=== PATIENT | female | born 1990 | race Caucasian/White ===

== ENCOUNTER 2019-06-17 22:16 | Observation (INO) | payer BC, SELFPAY ==
[2019-06-18 00:19] VITALS: BMI 31.1
--- NOTE | 2019-06-18 00:19 | OBADM ---
This patient, Christine Keller, admitted to the OB room Labor/Delivery/Recovery 107 for observation. Patient/family oriented to hospital policies and general routines including ID bracelet, bed and alarms, visiting hours, pain management, procedures, bathroom and other care routines, personal items, smoking policy, room service/diet, and visiting hours. Patient/Family are encouraged to report perceived risks to care and to ask questions if they do not understand what they are told or what they should do.
--- NOTE | 2019-07-24 07:18 | PM.OBDSVD ---
OB - DS: Summary OB Procedures : None OB Procedures Intrapartum: Spontaneous Vag Delivery OB Procedures: : Other (laceration repair in OR) Time Spent with Patient Time attestation: Total time spent providing and/or coordinating discharge services: Discharge Plan Discharge Attending physician on discharge: Lev Perdomo Discharging Clinician: Lev Perdomo Anticipated Discharge Date/Time: 06/18/19 00:27 Patient Disposition: Home, Self-Care Activity: as tolerated Diet: as tolerated Discharge Instructions: OB ANTEPARTUM DISCHARGE INSTRUCTIONS This information is given to help you properly care for yourself at home after your discharge from the hospital. Follow these instructions until your doctor tells you otherwise. DIET: Eat Three Well Balanced Meals per Day Drink at Least Eight 8-Ounce Glasses of Caffeine-Free Beverages Daily Additional Diet Instructions: ACTIVITY: As Tolerated Increase Periods of Rest Additional Activity Instructions: RETURN TO LABOR AND DELIVERY IF YOU HAVE: Any Change In Baby's Normal Movement Pattern Any Leakage of Fluid Contractions 3-5 Minutes Apart with Increasing Intensity Vaginal Bleeding Additional Reasons to Return to Labor and Delivery: Contractions may feel like abdominal pain, tightening, cramping, pressure, back ache, or thigh ache FOLLOW-UP CARE: Keep Next Scheduled Appointment To see in/on Valuables released to patient or family? N/A Medications from home returned to patient? N/A I Acknowledge Receipt of and Understand the Above Instructions IF YOU HAVE ANY QUESTIONS REGARDING THESE INSTRUCTIONS, PLEASE CALL [phone]. IF PROBLEMS ARISE, CALL YOUR PROVIDER. IF EMERGENCY CARE IS NEEDED, [facility] IS AVAILABLE 24 HOURS A DAY. Stand Alone Forms: General Discharge Information, Work/School Release IP Follow-up/Referrals: Lev Perdomo MD [Physician] - Discharge Medications: Continued PNV cmb#95-ferrous fumarate-FA [] 28 mg iron- 800 mcg Tablet 1 tablet PO DAILY RF: 0 sertraline 25 mg Tablet 25 mg PO DAILY RF: 0 No Action amoxicillin-pot clavulanate [Augmentin] 875-125 mg Tablet 1 tablet PO Q12H RF: 0 hydrocodone-acetaminophen 5-325 mg tablet 1 tablet PO Q8H PRN (Reason: pain) Qty: 10 RF: 0 hydrocodone-acetaminophen 5-325 mg Tablet 1 tab PO Q3H PRN (Reason: Moderate Pain (4-6)) Qty: 30 RF: 0 ibuprofen 600 mg Tablet 600 mg PO Q6H PRN (Reason: Cramping) Qty: 30 RF: 0 Date of admission: 06/17/19 22:16 Primary Care Provider: Jassi Fong Admitting Provider: Lev Perdomo Discharge Date/Time: 06/18/19 00:35 Attending physician on admission: Lev Perdomo
--- NOTE | 2019-07-26 09:11 | PM.OBDSVD ---
OB - DS: Summary OB Procedures : None OB Procedures Intrapartum: Spontaneous Vag Delivery and Episiotomy OB Procedures: : Other (PP episiotomy breakdown and repair) Time Spent with Patient Time attestation: Total time spent providing and/or coordinating discharge services: Discharge Plan Discharge Attending physician on discharge: Lev Perdomo Discharging Clinician: Lev Perdomo Anticipated Discharge Date/Time: 06/18/19 00:27 Patient Disposition: Home, Self-Care Activity: as tolerated Diet: as tolerated Discharge Instructions: OB ANTEPARTUM DISCHARGE INSTRUCTIONS This information is given to help you properly care for yourself at home after your discharge from the hospital. Follow these instructions until your doctor tells you otherwise. DIET: Eat Three Well Balanced Meals per Day Drink at Least Eight 8-Ounce Glasses of Caffeine-Free Beverages Daily Additional Diet Instructions: ACTIVITY: As Tolerated Increase Periods of Rest Additional Activity Instructions: RETURN TO LABOR AND DELIVERY IF YOU HAVE: Any Change In Baby's Normal Movement Pattern Any Leakage of Fluid Contractions 3-5 Minutes Apart with Increasing Intensity Vaginal Bleeding Additional Reasons to Return to Labor and Delivery: Contractions may feel like abdominal pain, tightening, cramping, pressure, back ache, or thigh ache FOLLOW-UP CARE: Keep Next Scheduled Appointment To see in/on Valuables released to patient or family? N/A Medications from home returned to patient? N/A I Acknowledge Receipt of and Understand the Above Instructions IF YOU HAVE ANY QUESTIONS REGARDING THESE INSTRUCTIONS, PLEASE CALL [phone]. IF PROBLEMS ARISE, CALL YOUR PROVIDER. IF EMERGENCY CARE IS NEEDED, [facility] EM[facility] ROOM IS AVAILABLE 24 HOURS A DAY. Stand Alone Forms: General Discharge Information, Work/School Release IP Follow-up/Referrals: Lev Perdomo MD [Physician] - Discharge Medications: Continued PNV cmb#95-ferrous fumarate-FA [] 28 mg iron- 800 mcg Tablet 1 tablet PO DAILY RF: 0 sertraline 25 mg Tablet 25 mg PO DAILY RF: 0 No Action amoxicillin-pot clavulanate [Augmentin] 875-125 mg Tablet 1 tablet PO Q12H RF: 0 hydrocodone-acetaminophen 5-325 mg tablet 1 tablet PO Q8H PRN (Reason: pain) Qty: 10 RF: 0 hydrocodone-acetaminophen 5-325 mg Tablet 1 tab PO Q3H PRN (Reason: Moderate Pain (4-6)) Qty: 30 RF: 0 ibuprofen 600 mg Tablet 600 mg PO Q6H PRN (Reason: Cramping) Qty: 30 RF: 0 Date of admission: 06/17/19 22:16 Primary Care Provider: Jassi Fong Admitting Provider: Lev Perdomo Discharge Date/Time: 06/18/19 00:35 Attending physician on admission: Lev Perdomo
--- NOTE | 2019-07-30 03:30 | P.DS_ITS ---
OB - DS: Summary OB Procedures : None OB Procedures Intrapartum: Spontaneous Vag Delivery OB Procedures: : Other (laceration breakdown/repair) Time Spent with Patient Time attestation: Total time spent providing and/or coordinating discharge services: Discharge Plan Discharge Attending physician on discharge: Lev Perdomo Discharging Clinician: Lev Perdomo Anticipated Discharge Date/Time: 06/18/19 00:27 Patient Disposition: Home, Self-Care Activity: as tolerated Diet: as tolerated Discharge Instructions: OB ANTEPARTUM DISCHARGE INSTRUCTIONS This information is given to help you properly care for yourself at home after your discharge from the hospital. Follow these instructions until your doctor tells you otherwise. DIET: Eat Three Well Balanced Meals per Day Drink at Least Eight 8-Ounce Glasses of Caffeine-Free Beverages Daily Additional Diet Instructions: ACTIVITY: As Tolerated Increase Periods of Rest Additional Activity Instructions: RETURN TO LABOR AND DELIVERY IF YOU HAVE: Any Change In Baby's Normal Movement Pattern Any Leakage of Fluid Contractions 3-5 Minutes Apart with Increasing Intensity Vaginal Bleeding Additional Reasons to Return to Labor and Delivery: Contractions may feel like abdominal pain, tightening, cramping, pressure, back ache, or thigh ache FOLLOW-UP CARE: Keep Next Scheduled Appointment To see in/on Valuables released to patient or family? N/A Medications from home returned to patient? N/A I Acknowledge Receipt of and Understand the Above Instructions IF YOU HAVE ANY QUESTIONS REGARDING THESE INSTRUCTIONS, PLEASE CALL [phone]. IF PROBLEMS ARISE, CALL YOUR PROVIDER. IF EMERGENCY CARE IS NEEDED, [facility] EM[facility] RO[facility] IS AVAILABLE 24 HOURS A DAY. Stand Alone Forms: General Discharge Information, Work/School Release IP Follow-up/Referrals: Lev Perdomo MD [Physician] - Discharge Medications: Continued PNV cmb#95-ferrous fumarate-FA [] 28 mg iron- 800 mcg Tablet 1 tablet PO DAILY RF: 0 sertraline 25 mg Tablet 25 mg PO DAILY RF: 0 No Action amoxicillin-pot clavulanate [Augmentin] 875-125 mg Tablet 1 tablet PO Q12H RF: 0 hydrocodone-acetaminophen 5-325 mg tablet 1 tablet PO Q8H PRN (Reason: pain) Qty: 10 RF: 0 hydrocodone-acetaminophen 5-325 mg Tablet 1 tab PO Q3H PRN (Reason: Moderate Pain (4-6)) Qty: 30 RF: 0 ibuprofen 600 mg Tablet 600 mg PO Q6H PRN (Reason: Cramping) Qty: 30 RF: 0 Date of admission: 06/17/19 22:16 Primary Care Provider: Jassi Fong Admitting Provider: Lev Perdomo Discharge Date/Time: 06/18/19 00:35 Attending physician on admission: Lev Perdomo
--- NOTE | 2019-07-31 07:48 | PM.OBDSVD ---
DS: Diagnosis Admitting Diagnosis Admitting Diagnosis: labor without delivery, unspecified trimester OB - DS: Summary OB Procedures : None OB Procedures Intrapartum: Spontaneous Vag Delivery OB Procedures: : Other (episiotomy repair) Time Spent with Patient Time attestation: Total time spent providing and/or coordinating discharge services: Discharge Plan Discharge Attending physician on discharge: Lve Perdomo Discharging Clinician: Lev Perdomo Anticipated Discharge Date/Time: 06/18/19 00:27 Patient Disposition: Home, Self-Care Activity: as tolerated Diet: as tolerated Discharge Instructions: OB ANTEPARTUM DISCHARGE INSTRUCTIONS This information is given to help you properly care for yourself at home after your discharge from the hospital. Follow these instructions until your doctor tells you otherwise. DIET: Eat Three Well Balanced Meals per Day Drink at Least Eight 8-Ounce Glasses of Caffeine-Free Beverages Daily Additional Diet Instructions: ACTIVITY: As Tolerated Increase Periods of Rest Additional Activity Instructions: RETURN TO LABOR AND DELIVERY IF YOU HAVE: Any Change In Baby's Normal Movement Pattern Any Leakage of Fluid Contractions 3-5 Minutes Apart with Increasing Intensity Vaginal Bleeding Additional Reasons to Return to Labor and Delivery: Contractions may feel like abdominal pain, tightening, cramping, pressure, back ache, or thigh ache FOLLOW-UP CARE: Keep Next Scheduled Appointment To see in/on Valuables released to patient or family? N/A Medications from home returned to patient? N/A I Acknowledge Receipt of and Understand the Above Instructions IF YOU HAVE ANY QUESTIONS REGARDING THESE INSTRUCTIONS, PLEASE CALL [phone]. IF PROBLEMS ARISE, CALL YOUR PROVIDER. IF EMERGENCY CARE IS NEEDED, [facility] EMERGENCY ROOM IS AVAILABLE 24 HOURS A DAY. Stand Alone Forms: General Discharge Information, Work/School Release IP Follow-up/Referrals: Lev Perdomo MD [Physician] - Discharge Medications: Continued PNV cmb#95-ferrous fumarate-FA [] 28 mg iron- 800 mcg Tablet 1 tablet PO DAILY RF: 0 sertraline 25 mg Tablet 25 mg PO DAILY RF: 0 No Action amoxicillin-pot clavulanate [Augmentin] 875-125 mg Tablet 1 tablet PO Q12H RF: 0 hydrocodone-acetaminophen 5-325 mg tablet 1 tablet PO Q8H PRN (Reason: pain) Qty: 10 RF: 0 hydrocodone-acetaminophen 5-325 mg Tablet 1 tab PO Q3H PRN (Reason: Moderate Pain (4-6)) Qty: 30 RF: 0 ibuprofen 600 mg Tablet 600 mg PO Q6H PRN (Reason: Cramping) Qty: 30 RF: 0 Date of admission: 06/17/19 22:16 Primary Care Provider: Jassi Fong Admitting Provider: Lev Perdomo Discharge Date/Time: 06/18/19 00:35 Attending physician on admission: Lev Perdomo
--- NOTE | 2019-07-31 13:44 | PM.OBTRLD ---
OB - Triage/Final Diagnosis Visit Information Reason for evaluation: threatened labor
== END 2019-06-18 00:35 | disposition home or self-care (01) ==
PROVIDERS: Admitting Provider Obstetrics & Gynecology; PCP Internal Medicine; Visit Provider Obstetrics & Gynecology
DX: O47.1 False labor at or after 37 completed weeks of gestation (principal); Z3A.37 37 weeks gestation of pregnancy
CPT/HCPCS: G0378; G0379

== ENCOUNTER 2019-09-13 16:45 | Emergency (ER) | payer BC, SELFPAY ==
--- NOTE | ~2019-09-13 | CT_ITS ---
EXAMINATION: CT abdomen pelvis w con DATE: 09/13/2019 19:06 INDICATION: Left lower quadrant abdominal pain. Blood in stool. TECHNIQUE: Computed tomography (CT) of the abdomen and pelvis was performed with 100 mL Omnipaque 350 intravenous contrast. Automated exposure control and iterative reconstruction technique were employe d. The dose-length product was 531.13 mGy-cm. COMPARISON: CT abdomen and pelvis 07/11/2019 FINDINGS: The visualized portions of the lung bases are clear without pneumonia or pleural effusion. The heart size is normal. No pericardial effusion. The liver and spleen are normal. There are changes of recent cholecystectomy. There is a small volume of soft tissue in the gallbladder fossa, likely g ranulation tissue. The spleen, pancreas, adrenal glands, and kidneys are normal. There are no dilated loops of bowel. The appendix is normal. There are no pathologically enlarged lymph nodes. The bones are unremarkable. IMPRESSION: 1. Expected surgical changes of recent cholecystectomy. Reviewed, dictated and finalized at location A.
[2019-09-13 16:49] VITALS: BP 139/88; PULSE 123; RESP 18; TEMP 36.2; O2SAT 98
[2019-09-13 17:22] LABS: Basophils Percent Auto 0.2 % (0.2-1.2); Eosinophils Absolute Auto 0.1 K/mm3 (0-0.3); Eosinophils Percent Auto 0.7 % (0-4.4); Hematocrit 39.6 % (37.0-47.0); Hemoglobin 12.6 g/dL (12.0-15.0); Immature Granulocyte Absolute 0.03 K/mm3 (0.00-0.031); Immature Granulocyte Percent A 0.3 % (0-0.5); Lymphocytes Absolute Auto 2.14 K/mm3 (0.9-3.2); Lymphocytes Percent Auto 22.6 % (18.3-44.2); Mean Corpuscular HGB Conc 31.8 g/dl (32-36); Mean Corpuscular Hemoglobin 29.9 pg (26-34); Mean Corpuscular Volume 93.8 fl (80-100); Mean Platelet Volume 10.6 fl (7.4-10.4); Monocytes Absolute Auto 0.5 K/mm3 (0.1-0.6); Monocytes Percent Auto 5.4 % (2.6-8.5); Neutrophils Absolute Auto 6.7 K/mm3 (1.3-6.7); Neutrophils Percent Auto 70.8 % (45.5-73.1); Platelet Count Result 351 k/mm3 (150-375); Red Blood Count 4.22 M/mm3 (4.2-5.4); Red Cell Distribution Width 13.7 % (11.5-14.5); White Blood Count 9.5 K/mm3 (4.5-10.0)
[2019-09-13 17:32] LABS: Prothrombin Time 12.4 Seconds (11.1-14.7)
[2019-09-13 17:33] LABS: Partial Thromboplastin Time 25.1 SECONDS (22.3-36.8)
[2019-09-13 17:40] LABS: Alanine Aminotransferase 100 U/L (4-35); Albumin Level 4.7 g/dL (3.5-5.1); Alkaline Phosphatase 102 U/L (38-126); Aspartate Amino Transferase 67 U/L (14-36); Bilirubin,Total 0.4 mg/dL (0.2-1.3); Blood Urea Nitrogen 10 mg/dL (7-17); Calcium 9.2 mg/dL (8.4-10.2); Carbon Dioxide 26 mmol/L (22-30); Chloride 101 mmol/L (98-107); Estimated CRCL calculation 105 ml/min; Estimated Glomerular Filt Rate > 60; Glucose 120 mg/dL (65-105); Potassium 3.8 mmol/L (3.4-5.0); Sodium 138 mmol/L (137-145)
[2019-09-13 17:53] VITALS: BP 129/89; PULSE 112; RESP 17; O2SAT 100
--- NOTE | 2019-09-13 17:58 | ED.GIBLEED ---
HPI - GI Bleed General Chief complaint: GI Bleed Stated complaint: R/O bowel obstruction Time Seen by Provider: 09/13/19 17:49 Related Data Home Medications Medication Instructions Recorded Confirmed nortriptyline 50 mg capsule 150 mg PO DAILY cap 08/15/19 Allergies Allergy/AdvReac Type Severity Reaction Status Date / Time prochlorperazine AdvReac Other Verified 07/11/19 23:06 [From Compazine] [facility] Past Medical History Medical History (Updated 08/15/19 @ 07:37 by Cat Nettles CMA) ADH disorder ADHD Brain tumor Depression Generalized anxiety disorder Generalized hyperhidrosis Glioma tectorial gliomahe Headache, migraine Hyperthyroidism Obesity (BMI 30-39.9) PIH ( induced hypertension) Surgical History Surgical History (Updated 08/15/19 @ 14:27 by Cat Nettles CMA) History of brain surgery 2011 History of vaginal surgery complete vaginal reconstruction after vaginal Social History Social History (Updated 08/15/19 @ 14:28 by Cat Nettles CMA) Smoking packs per day: 0.75 Smoking cigarettes per day: 15.0 Years smoked: 10 Smoking pack-years: 7.50 Smoking status: Former smoker Smoking end date: 06/19/09 Alcohol intake: never Substance use: never Gender identity (if verbalized by the patient): Female Spiritual care concerns: No Course Vital Signs Vital signs: Vital Signs Temperature 36.2 C L 09/13/19 16:49 Pulse Rate 123 H 09/13/19 16:49 Respiratory Rate 18 09/13/19 16:49 Blood Pressure 139/88 09/13/19 16:49 Pulse Oximetry 98 09/13/19 16:49 Temperature 36.2 C L 09/13/19 16:49 Pulse Rate 112 H 09/13/19 17:53 Respiratory Rate 17 09/13/19 17:53 Blood Pressure 129/89 09/13/19 17:53 Pulse Oximetry 100 09/13/19 17:53 MDM - GI Bleed Lab Data Result diagrams: 09/13/19 17:00 09/13/19 17:00 Labs: Lab Results 09/13/19 09/13/19 09/13/19 Range/Units 17:00 17:00 17:00 WBC 9.5 (4.5-10.0) K/mm3 RBC 4.22 (4.2-5.4) M/mm3 Hgb 12.6 (12.0-15.0) g/dL Hct 39.6 (37.0-47.0) % MCV 93.8 (80-100) fl MCH 29.9 (26-34) pg MCHC 31.8 L (32-36) g/dl RDW 13.7 (11.5-14.5) % Plt Count 351 (150-375) k/mm3 MPV 10.6 H (7.4-10.4) fl Immature Gran % (Auto) 0.3 (0-0.5) % Neut % (Auto) 70.8 (45.5-73.1) % Lymph % (Auto) 22.6 (18.3-44.2) % Duval % (Auto) 5.4 (2.6-8.5) % Eos % (Auto) 0.7 (0-4.4) % Baso % (Auto) 0.2 (0.2-1.2) % Lymph # (Auto) 2.14 (0.9-3.2) K/mm3 Duval # (Auto) 0.5 (0.1-0.6) K/mm3 Eos # (Auto) 0.1 (0-0.3) K/mm3 Baso # (Auto) 0.0 (0.0-0.1) K/mm3 Abs Immat Gran (auto) 0.03 (0.00-0.031) K/mm3 Absolute Neuts (auto) 6.7 (1.3-6.7) K/mm3 Absolute Nucleated RBC 0.0 (0.0-0.012) K/mm3 Nucleated RBC % 0.0 (0.0-0.2) % PT 12.4 (11.1-14.7) Seconds INR 1.0 APTT 25.1 (22.3-36.8) SECONDS Sodium 138 (137-145) mmol/L Potassium 3.8 (3.4-5.0) mmol/L Chloride 101 (98-107) mmol/L Carbon Dioxide 26 (22-30) mmol/L BUN 10 (7-17) mg/dL Creatinine 0.70 (0.7-1.0) mg/dL Estim Creat Clear Calc 105 ml/min Estimated GFR > 60 (59 - ) Glucose 120 H (65-105) mg/dL Calcium 9.2 (8.4-10.2) mg/dL Total Bilirubin 0.4 (0.2-1.3) mg/dL AST 67 H (14-36) U/L ALT 100 H (4-35) U/L Alkaline Phosphatase 102 (38-126) U/L Total Protein 9.0 H (6.3-8.2) g/dL Albumin 4.7 (3.5-5.1) g/dL Blood Type Antibody Screen 09/13/19 Range/Units 17:00 WBC (4.5-10.0) K/mm3 RBC (4.2-5.4) M/mm3 Hgb (12.0-15.0) g/dL Hct (37.0-47.0) % MCV (80-100) fl MCH (26-34) pg MCHC (32-36) g/dl RDW (11.5-14.5) % Plt Count (150-375) k/mm3 MPV (7.4-10.4) fl Immature Gran % (Auto) (0-0.5) % Neut % (Auto) (45.5-73.1) % Lymph % (Auto) (18.3-44.2) % Duval % (Auto) (2.6-8.5) % Eos % (Auto) (0-4.
--- NOTE | 2019-09-13 18:03 | ED.ABDPAIN ---
HPI - Abdominal Pain General Chief Complaint: GI Bleed Stated Complaint: R/O bowel obstruction Time Seen by Provider: 09/13/19 17:49 Source: patient Mode of arrival: ambulatory Limitations: no limitations History of Present Illness HPI narrative: The pt is a 28 y/o female who presents to the ED c/o lower ABD pain onset one week ago. Pt states that she had laparoscopic cholecystectomy performed by Dr. Mcadams at [facility] one week ago. She states that the pain has not gone away with Tylenol and Ibuprofen. She states that she had a follow-up two days ago. She states that one day ago, she began to notice bright red blood with her bowel movements. Pt has had 3 movements in total. She states that she called her surgeon's office, who were first concerned about obstruction. She states that today, the nurse from the surgeon's office called back and told her it could be a hemorrhoid or constipation. The pt states that she was still concerned, so she came in. Pt reports nausea and diaphoresis, but denies diarrhea, constipation, fever, chills, cough, sore throat, vomiting, dysuria, hematuria, and frequency. MD elicited complaint: abdominal pain Onset (ago): week(s) (1) Location: other (Lower) Relieving factors: nothing Context: confirms recent surgery/procedure (Laparoscopic cholecystectomy) Associated symptoms: nausea, hematochezia and other (Diaphoresis) Treatments prior to arrival: NSAIDs (Ibuprofen) and other (Tylenol) Related Data Home Medications Medication Instructions Recorded Confirmed nortriptyline 50 mg capsule 150 mg PO DAILY cap 08/15/19 Allergies Allergy/AdvReac Type Severity Reaction Status Date / Time prochlorperazine AdvReac Other Verified 07/11/19 23:06 [From Compazine] Review of Systems Review of Systems: All systems reviewed & are unremarkable except as noted in HPI and below Constitutional: Constitutional: Denies chills, Reports excessive sweating and Denies fever(s) ENT: Denies sore throat Respiratory: Respiratory: Denies cough Gastrointestinal: Gastrointestinal: Reports abdominal pain (Lower), Reports hematochezia, Denies constipation, Denies diarrhea, Reports nausea and Denies vomiting Genitourinary: Genitourinary: Denies hematuria, Denies nocturia and Denies dysuria [facility] Past Medical History Medical History (Updated 09/13/19 @ 19:25 by Genevieve Cowart MD) ADH disorder ADHD Brain tumor Depression Generalized anxiety disorder Generalized hyperhidrosis Glioma tectorial gliomahe Headache, migraine Hydrocephalus Hyperthyroidism Obesity (BMI 30-39.9) PIH ( induced hypertension) Surgical History Surgical History (Updated 09/13/19 @ 18:05 by Benji Payne) History of brain surgery 2011 History of cholecystectomy History of vaginal surgery complete vaginal reconstruction after vaginal Social History Social History (Updated 08/15/19 @ 14:28 by Cat Nettles [facility]) Smoking packs per day: 0.75 Smoking cigarettes per day: 15.0 Years smoked: 10 Smoking pack-years: 7.50 Smoking status: Former smoker Smoking end date: 06/19/09 Alcohol intake: never Substance use: never Gender identity (if verbalized by the patient): Female Spiritual care concerns: No Comments PCP: Dr. Fong Surgeon: Dr. Mcadams Exam Const: General: cooperative, no acute distress and alert Nutritional Appearance: well nourished Orientation/consciousness: patient oriented x3 Limitations: no limitations HENMT: Mouth: Yes lip normal and Yes moist mucous membranes Resp: Effort & Inspection: normal respiratory effort Auscultation: clear to auscultation bilaterally Cardio: Rate: regular rate Rhythm: regular rhythm GI: GI Palp: Yes Soft to palpation and Yes Tenderness to palpation present (GI) (LLQ) Auscultation: normal bowel sounds Skin: General skin exam: normal color and other (Well-healing surgical scars on her ABD from laparoscopic cholecystectomy) Neur
[2019-09-13 19:39] VITALS: BP 125/88; PULSE 100; RESP 18; O2SAT 99
== END 2019-09-13 19:41 | disposition home or self-care (01) ==
PROVIDERS: Emergency Medicine; Emergency Provider Emergency Medicine; PCP Internal Medicine
DX: K62.5 Hemorrhage of anus and rectum (principal); R10.30 Lower abdominal pain, unspecified; Z98.890 Other specified postprocedural states; F90.9 Attention-deficit hyperactivity disorder, unspecified type; F32.9 Major depressive disorder, single episode, unspecified; F41.1 Generalized anxiety disorder; G91.9 Hydrocephalus, unspecified; Z87.891 Personal history of nicotine dependence
CPT/HCPCS: 36415; 74177; 80053; 85025; 85610; 85730; 86850; 86870; 86880; 86900; 86901; 86902; 86971; 86978; 99284; Q9967

== ENCOUNTER 2020-07-29 16:30 | Emergency (ER) | payer SELFPAY ==
--- NOTE | ~2020-07-29 | CT_ITS ---
EXAMINATION: CT brain wo con INDICATION: Right-sided muscle spasms, history of brain tumor COMPARISON: 09/17/2017; MRI, 06/04/2014 TECHNIQUE: Standard unenhanced head CT. The dose-length product (DLP) was 605.33 mGy-cm. The mA was a djusted according to patient size. Iterative reconstruction technique was employed. FINDINGS: There is no intracranial hemorrhage or acute infarction. An approximately 1.5 x 1.1 cm mass of the tectum is not significantly changed. There is mild ventriculomegaly without significant boo e. Encephalomalacia is seen in the right frontal lobe along a prior ventriculostomy tract. There is n o abnormal mass effect or midline shift. The bose-white matter differentiation is normal. The basal c isterns are patent. The orbits are normal. The paranasal sinuses, mastoids and calvarium are normal. IMPRESSION: 1. No acute intracranial abnormality. 2. 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 Reviewed, dictated and finalized at location A. [employer]
[2020-07-29 16:43] VITALS: BP 121/85; PULSE 127; RESP 19; TEMP 36.6; O2SAT 100
--- NOTE | 2020-07-29 16:48 | ECG_ITS ---
Measurements Intervals [place] Rate: 121 P: 67 NV: 133 QRS: 73 QRSD: 86 T: 44 QT: 338 QTc: 480 Interpretive Statements SINUS TACHYCARDIA MINIMAL Q WAVES- ANTEROLAT/INF LEADS NONSPECIFIC T-WAVE ABNORMALITY- INFERIOR LEADS BASELINE ARTIFACT- I, III, AVR, AVL, AVF, V4-V6 ABNORMAL ECG Electronically Signed On 07-29-2020 19:40:29 [employer] by Oleksandr Ortiz D.O.
[2020-07-29] MEDS: SODIUM CHLORIDE 0.9% IV 1,000 ML 999 ML IV CONT (16:55)
[2020-07-29] MEDS: LORazepam INJ (*CRX) 2 MG/ML VIAL 0.5 MG IV PUSH (16:58)
[2020-07-29] MEDS: diphenhydrAMINE HCl INJ 50 MG/ML VIAL 25 MG IV PUSH (16:58)
[2020-07-29 17:05] LABS: Basophils Percent Auto 0.4 % (0.2-1.2); Eosinophils Absolute Auto 0.1 K/mm3 (0-0.3); Hematocrit 37.7 % (37.0-47.0); Hemoglobin 12.6 g/dL (12.0-15.0); Immature Granulocyte Absolute 0.03 K/mm3 (0.00-0.031); Immature Granulocyte Percent A 0.3 % (0-0.5); Lymphocytes Absolute Auto 1.99 K/mm3 (0.9-3.2); Lymphocytes Percent Auto 19.6 % (18.3-44.2); Mean Corpuscular HGB Conc 33.4 g/dl (32-36); Mean Corpuscular Hemoglobin 30.6 pg (26-34); Mean Corpuscular Volume 91.5 fl (80-100); Mean Platelet Volume 10.1 fl (7.4-10.4); Monocytes Absolute Auto 0.6 K/mm3 (0.1-0.6); Monocytes Percent Auto 5.4 % (2.6-8.5); Neutrophils Absolute Auto 7.4 K/mm3 (1.3-6.7); Neutrophils Percent Auto 73.3 % (45.5-73.1); Platelet Count Result 263 k/mm3 (150-375); Red Blood Count 4.12 M/mm3 (4.2-5.4); Red Cell Distribution Width 12.7 % (11.5-14.5); White Blood Count 10.1 K/mm3 (4.5-10.0)
[2020-07-29 17:22] LABS: Alanine Aminotransferase 35 U/L (4-35); Albumin Level 4.6 g/dL (3.5-5.1); Alkaline Phosphatase 63 U/L (38-126); Anion Gap 6 mmol/L (8-16); Aspartate Amino Transferase 33 U/L (14-36); Bilirubin,Total 0.4 mg/dL (0.2-1.3); Blood Urea Nitrogen 8 mg/dL (7-17); Calcium 9.2 mg/dL (8.4-10.2); Carbon Dioxide 28 mmol/L (22-30); Chloride 107 mmol/L (98-107); Estimated CRCL calculation 117 ml/min; Estimated Glomerular Filt Rate > 60; Glucose 112 mg/dL (65-105); Potassium 3.9 mmol/L (3.4-5.0); Sodium 141 mmol/L (137-145)
[2020-07-29 17:40] VITALS: BP 125/84; PULSE 94; RESP 18; O2SAT 100
--- NOTE | 2020-07-29 18:17 | ED.GENADULT ---
HPI - General Adult General Chief complaint: Anxiety Stated complaint: my body is tense and I'm leaning to the side Time Seen by Provider: 07/29/20 16:41 History of Present Illness HPI narrative: Patient a 29-year-old female who presents the emergency department with chief complaint of anxiety and her right side of her body tensing up. She reports that she has been more anxious since the of a friend who was 25 years old and states that she took some extra BuSpar that her doctor told her that she could take. The patient states she feels as though the right side of her body is tensed up and feels as though it is pulling to the right side. The patient reports that it is not improved by anything and that she feels very anxious. The patient denies suicidal or homicidal ideation Related Data Home Medications Medication Instructions Recorded Confirmed nortriptyline 50 mg capsule 150 mg PO DAILY cap 08/15/19 Allergies Allergy/AdvReac Type Severity Reaction Status Date / Time prochlorperazine AdvReac Other Verified 07/29/20 16:46 [From Compazine] Review of Systems Review of Systems: Narrative: A 10 system review of systems was completed on the patient and is negative except for what is stated in the HPI. Nursing and ancillary documentation was reviewed. [facility] Past Medical History Medical History ADH disorder ADHD Brain tumor Depression Generalized anxiety disorder Generalized hyperhidrosis Glioma tectorial gliomahe Headache, migraine Hydrocephalus Hyperthyroidism Obesity (BMI 30-39.9) PIH ( induced hypertension) Surgical History Surgical History History of brain surgery 2012 History of cholecystectomy History of vaginal surgery complete vaginal reconstruction after vaginal Family History Family History Father Family history of elevated blood lipids Diabetes mellitus Depression Mother Melanoma Social History Social History Smoking packs per day: 0.75 Smoking cigarettes per day: 15.0 Years smoked: 10 Smoking pack-years: 7.50 Smoking status: Former smoker Smoking end date: 06/19/09 Alcohol intake: never Substance use: never Gender identity (if verbalized by the patient): Female Spiritual care concerns: No Exam Narrative: Exam Narrative: GENERAL: Well-appearing, well-nourished, and in no acute distress. HEAD: Normocephalic, atraumatic. EYES: PERRLA and EOMI. ENT: Nares clear, no rhinorrhea or epistaxis. Mucous membranes moist. NECK: Supple. CHEST: Clear to auscultation. No respiratory distress. HEART: Regular rate and rhythm. No murmur heard. Normal peripheral pulses. ABDOMEN: Soft, nontender, nondistended, normal active bowel sounds. EXTREMITIES: Normal range of motion. No edema. SKIN: Warm, dry, no rash. NEURO: No focal deficits. Alert and oriented x3. PSYCH: Normal mood and affect. Course Course Emergency Course: Given the patient's prior history of brain tumor a CT scan was ordered to evaluate for any acute intercranial pathology. This shows unchanged from previous studies. Given the patient was anxious and also showing signs that she was spasming on the right side the patient was given a dose of Ativan and also given a dose of IV Benadryl in case this was a dystonic type reaction. The patient had complete resolution in her symptoms after receiving the Ativan and Benadryl. Vital Signs Vital signs: Vital Signs Temperature 36.6 C 07/29/20 16:43 Pulse Rate 127 H 07/29/20 16:43 Respiratory Rate 19 07/29/20 16:43 Blood Pressure 121/85 07/29/20 16:43 Pulse Oximetry 100 07/29/20 16:43 Temperature 36.6 C 07/29/20 16:43 Pulse Rate 94 07/29/20 17:40 Respiratory Rate 18
[2020-07-29 18:34] VITALS: BP 120/83; PULSE 88; RESP 18; O2SAT 100
== END 2020-07-29 18:35 | disposition home or self-care (01) ==
PROVIDERS: Emergency Provider Emergency Medicine; PCP Nurse Practitioner Family
DX: F41.9 Anxiety disorder, unspecified (principal); F90.9 Attention-deficit hyperactivity disorder, unspecified type; F32.9 Major depressive disorder, single episode, unspecified
CPT/HCPCS: 36415; 70450; 80053; 85025; 93005; 96361; 96374; 96375; 99284; J1200; J2060; J7030

== ENCOUNTER 2020-10-09 03:21 | Emergency (ER) | payer SELFPAY ==
[2020-10-09 03:24] VITALS: BP 121/79; PULSE 104; RESP 18; TEMP 36.3; O2SAT 100
[2020-10-09 03:36] VITALS: BP 107/71; PULSE 98; RESP 13; O2SAT 100
[2020-10-09 04:19] LABS: Basophils Percent Auto 0.4 % (0.2-1.2); Eosinophils Absolute Auto 0.1 K/mm3 (0-0.3); Eosinophils Percent Auto 1.7 % (0-4.4); Hematocrit 39.8 % (37.0-47.0); Hemoglobin 13.5 g/dL (12.0-15.0); Immature Granulocyte Absolute 0.02 K/mm3 (0.00-0.031); Immature Granulocyte Percent A 0.3 % (0-0.5); Lymphocytes Absolute Auto 2.33 K/mm3 (0.9-3.2); Lymphocytes Percent Auto 30.1 % (18.3-44.2); Mean Corpuscular HGB Conc 33.9 g/dl (32-36); Mean Corpuscular Hemoglobin 31.7 pg (26-34); Mean Corpuscular Volume 93.4 fl (80-100); Mean Platelet Volume 9.8 fl (7.4-10.4); Monocytes Absolute Auto 0.5 K/mm3 (0.1-0.6); Monocytes Percent Auto 6.3 % (2.6-8.5); Neutrophils Absolute Auto 4.7 K/mm3 (1.3-6.7); Neutrophils Percent Auto 61.2 % (45.5-73.1); Platelet Count Result 268 k/mm3 (150-375); Red Blood Count 4.26 M/mm3 (4.2-5.4); Red Cell Distribution Width 12.5 % (11.5-14.5); White Blood Count 7.7 K/mm3 (4.5-10.0)
[2020-10-09] MEDS: SODIUM CHLORIDE 0.9% IV 1,000 ML 999 ML IV CONT (04:25)
[2020-10-09] MEDS: diphenhydrAMINE HCl INJ 50 MG/ML VIAL 25 MG IV PUSH (04:26)
[2020-10-09 04:29] LABS: Magnesium 1.7 mg/dL (1.6-2.3)
[2020-10-09 04:30] LABS: Alanine Aminotransferase 17 U/L (4-35); Albumin Level 4.5 g/dL (3.5-5.1); Alkaline Phosphatase 56 U/L (38-126); Anion Gap 7 mmol/L (8-16); Aspartate Amino Transferase 23 U/L (14-36); Bilirubin,Total 0.5 mg/dL (0.2-1.3); Blood Urea Nitrogen 10 mg/dL (7-17); Calcium 8.9 mg/dL (8.4-10.2); Carbon Dioxide 25 mmol/L (22-30); Chloride 107 mmol/L (98-107); Estimated CRCL calculation 103 ml/min; Estimated Glomerular Filt Rate > 60; Glucose 91 mg/dL (65-105); Potassium 3.8 mmol/L (3.4-5.0); Sodium 139 mmol/L (137-145)
--- NOTE | 2020-10-09 04:34 | ED.GENADULT ---
HPI - General Adult General Chief complaint: Arrhythmia/Palpitations Stated complaint: palpitations Time Seen by Provider: 10/09/20 03:36 History of Present Illness HPI narrative: Patient is a 29-year-old female who presents the emergency department with chief complaint of palpitations and anxiety. Patient reports she has a long running history of anxiety and reports that tonight she started feeling extremely anxious the patient states that she felt as though her heart was beating fast patient took some Benadryl earlier today without success. The patient reports she has an appointment tomorrow with her OB to discuss options for her anxiety. The patient denies syncope reports she has had similar episodes before in the past. Related Data Home Medications Medication Instructions Recorded Confirmed nortriptyline 50 mg capsule 150 mg PO DAILY cap 08/15/19 Allergies Allergy/AdvReac Type Severity Reaction Status Date / Time prochlorperazine AdvReac Other Verified 07/29/20 16:46 [From Compazine] Review of Systems Review of Systems: Narrative: A 10 system review of systems was completed on the patient and is negative except for what is stated in the HPI. Nursing and ancillary documentation was reviewed. [facility] Past Medical History Medical History ADH disorder ADHD Brain tumor Depression Generalized anxiety disorder Generalized hyperhidrosis Glioma tectorial gliomahe Headache, migraine Hydrocephalus Hyperthyroidism Obesity (BMI 30-39.9) PIH ( induced hypertension) Surgical History Surgical History History of brain surgery 2011 History of cholecystectomy History of vaginal surgery complete vaginal reconstruction after vaginal Family History Family History Father Family history of elevated blood lipids Diabetes mellitus Depression Mother Melanoma Social History Social History Smoking packs per day: 0.75 Smoking cigarettes per day: 15.0 Years smoked: 10 Smoking pack-years: 7.50 Smoking status: Former smoker Smoking end date: 06/19/09 Alcohol intake: never Substance use: never Gender identity (if verbalized by the patient): Female Spiritual care concerns: No Exam Narrative: Exam Narrative: GENERAL: Well-appearing, well-nourished, and in no acute distress. HEAD: Normocephalic, atraumatic. EYES: PERRLA and EOMI. ENT: Nares clear, no rhinorrhea or epistaxis. Mucous membranes moist. NECK: Supple. CHEST: Clear to auscultation. No respiratory distress. HEART: Regular rate and rhythm. No murmur heard. Normal peripheral pulses. ABDOMEN: Soft, nontender, nondistended, normal active bowel sounds. EXTREMITIES: Normal range of motion. No edema. SKIN: Warm, dry, no rash. NEURO: No focal deficits. Alert and oriented x3. PSYCH: Normal mood and affect. Course Course Emergency Course: EKG is a sinus rhythm rate of [address] elevation or ST depression Patient was given a dose of IV Benadryl and the patient states she still feels extremely anxious. The patient requested a benzodiazepine. It was discussed with the patient the risk and benefits of benzodiazepine therapy due to Ativan being a category D in and there is a slight risk of cleft lip and other defects. The patient states she understood this she accepted the risk after informed decision and the patient was given 0.5 mg of Ativan. Vital Signs Vital signs: Vital Signs Temperature 36.3 C L 10/09/20 03:24 Pulse Rate 104 H 10/09/20 03:24 Respiratory Rate 18 10/09/20 03:24 Blood Pressure 121/79 10/09/20 03:24 Pulse Oximetry 100 10/09/20 03:24 Temperature 36.3 C L 10/09/20 03:24 Pulse Rate 100 10/09/20 05:57 Respiratory Rate 24
[2020-10-09 04:43] VITALS: BP 106/76; PULSE 94; RESP 18; O2SAT 100
[2020-10-09 05:03] LABS: Add Urine Microscopic? YES; Appearance Urine Cloudy (Clear); Bacteria Urine Trace /hpf; Bilirubin Urine Negative (Negative); Blood Urine Negative (Negative); Color Urine Yellow (Yellow); Glucose Urine UA Negative (Negative); Ketones Urine Trace mg/dL (Negative); Leukocyte Esterase Ur Trace LEU/UL (Negative); Mucus Urine Heavy /lpf; Nitrate Urine Negative (Negative); Protein Urine 2+ mg/dL (Negative); RBC Urine 0-2 /hpf (0-2); Specific Grav Ur 1.031 (1.001-1.035)
--- NOTE | 2020-10-09 05:10 | ECG_ITS ---
Measurements Intervals [place] Rate: 98 P: 52 OH: 104 QRS: 72 QRSD: 86 T: 38 QT: 325 QTc: 416 Interpretive Statements SINUS RHYTHM WITH SHORT [place] INTERVAL BASELINE ARTIFACT- I, III, AVL BORDERLINE ECG Electronically Signed On 10-09-2020 9:32:07 CDT by Oleksandr Ortiz D.O.
[2020-10-09] MEDS: LORazepam INJ (*CRX) 2 MG/ML VIAL 0.5 MG IV PUSH (05:37)
[2020-10-09 05:57] VITALS: BP 98/68; PULSE 100; RESP 24; O2SAT 100
[2020-10-09 06:14] VITALS: BP 102/69; PULSE 117; RESP 22; O2SAT 100
== END 2020-10-09 06:16 | disposition home or self-care (01) ==
PROVIDERS: Emergency Provider Emergency Medicine; PCP Nurse Practitioner Family
DX: R00.2 Palpitations (principal); F41.1 Generalized anxiety disorder; F90.9 Attention-deficit hyperactivity disorder, unspecified type; E05.90 Thyrotoxicosis, unspecified without thyrotoxic crisis or storm; R61 Generalized hyperhidrosis; E66.9 Obesity, unspecified; Z68.21 Body mass index [BMI] 21.0-21.9, adult; Z87.891 Personal history of nicotine dependence; R94.31 Abnormal electrocardiogram [ECG] [EKG]
CPT/HCPCS: 36415; 80053; 81001; 83735; 85025; 93005; 96361; 96374; 96375; 99284; J1200; J2060; J7030

== ENCOUNTER 2020-10-13 15:02 | Emergency (ER) | payer SELFPAY ==
--- NOTE | ~2020-10-13 | US_ITS ---
EXAMINATION: US OB <= 14 weeks fetus DATE: 10/13/2020 15:48 INDICATION: Vaginal bleeding during first trimester . TECHNIQUE: Real-time pelvic ultrasound utilizing both a transvaginal and transabdominal probe was pe rformed. The interpreting radiologist was not present for the study. COMPARISON: None. FINDINGS: The anteverted uterus measures 8.4 x 5.3 x 4.6 cm. There is an intrauterine gestational sac. A yolk sac and pole are identified. The crown rump length measures 3 mm, which correlates with an virgie mated gestational age of 5 weeks and 6 days. heart motion is identified measuring 101 beats per minute (bpm) by M-mode Doppler. 2.0 x 1.0 x 1.3 cm hypoechoic region along the anterior margin of th e gestational sac consistent with a small subchorionic hematoma. The right ovary measures 2.6 x 1.8 x 2.0 cm. The left ovary measures 3.0 x 1.8 x 1.6 cm. Vascular rajesh w identified in both ovaries on color Doppler There is no free fluid in the pelvis. IMPRESSION: 1. Single living fetus with heart rate of 101 bpm. 2. Gestational age by ultrasound of 5 weeks 6 day(s) +/- 4 day(s) with ultrasound estimated date of delivery ([facility]HNA[facility]) of 06/09/2021. 3. 2.0 x 1.0 x 1.2 cm subchorionic hematoma. Reviewed, dictated and finalized at location A. IMPRESSION: 1. Single living fetus with heart rate of 101 bpm. 2. Gestational age by ultrasound of 5 weeks 6 day(s) +/- 4 day(s) with ultraso und estimated date of delivery (MEHNAZ) of 06/09/2021. 3. 2.0 x 1.0 x 1.2 cm subchorionic hematoma.
[2020-10-13 15:21] VITALS: BP 109/73; PULSE 97; RESP 17; TEMP 36.1; O2SAT 99
[2020-10-13 15:34] LABS: Basophils Percent Auto 0.4 % (0.2-1.2); Eosinophils Absolute Auto 0.1 K/mm3 (0-0.3); Eosinophils Percent Auto 1.4 % (0-4.4); Hematocrit 35.6 % (37.0-47.0); Immature Granulocyte Absolute 0.02 K/mm3 (0.00-0.031); Immature Granulocyte Percent A 0.2 % (0-0.5); Lymphocytes Absolute Auto 3.17 K/mm3 (0.9-3.2); Lymphocytes Percent Auto 38.2 % (18.3-44.2); Mean Corpuscular HGB Conc 33.7 g/dl (32-36); Mean Corpuscular Hemoglobin 31.4 pg (26-34); Mean Corpuscular Volume 93.2 fl (80-100); Mean Platelet Volume 10.2 fl (7.4-10.4); Monocytes Absolute Auto 0.5 K/mm3 (0.1-0.6); Monocytes Percent Auto 6.2 % (2.6-8.5); Neutrophils Absolute Auto 4.4 K/mm3 (1.3-6.7); Neutrophils Percent Auto 53.6 % (45.5-73.1); Platelet Count Result 239 k/mm3 (150-375); Red Blood Count 3.82 M/mm3 (4.2-5.4); Red Cell Distribution Width 12.2 % (11.5-14.5); White Blood Count 8.3 K/mm3 (4.5-10.0)
--- NOTE | 2020-10-13 17:33 | ED.FEMALEGU ---
HPI - Female Genitourinary General Chief complaint: Vaginal Bleeding Stated complaint: vaginal bleeding at 8wks preg Time Seen by Provider: 10/13/20 16:15 Source: patient Mode of arrival: ambulatory Limitations: no limitations History of Present Illness HPI Narrative: This is a 29-year-old G3, P1, about 8 weeks by LMP that presents to the emergency department for vaginal bleeding today. Reports she noted bright red blood this afternoon. Does report some mild pelvic cramping. She has not had an ultrasound yet this . Denies fever, vomiting, or dysuria. Related Data Home Medications Medication Instructions Recorded Confirmed nortriptyline 50 mg capsule 150 mg PO DAILY cap 08/15/19 Allergies Allergy/AdvReac Type Severity Reaction Status Date / Time cephalexin Allergy Rash Verified 10/13/20 15:48 prochlorperazine AdvReac Other Verified 07/29/20 16:46 [From Compazine] Review of Systems Review of Systems: Narrative: CONSTITUTIONAL: Denies fever GASTROINTESTINAL: Denies abdominal pain, nausea, vomiting GENITOURINARY: Denies dysuria All systems reviewed & are unremarkable except as noted in HPI and below PMFSH Past Medical History Medical History ADH disorder ADHD Brain tumor Depression Generalized anxiety disorder Generalized hyperhidrosis Glioma tectorial gliomahe Headache, migraine Hydrocephalus Hyperthyroidism Obesity (BMI 30-39.9) PIH ( induced hypertension) Surgical History Surgical History History of brain surgery 2012 History of cholecystectomy History of vaginal surgery complete vaginal reconstruction after vaginal Family History Family History Father Family history of elevated blood lipids Diabetes mellitus Depression Mother Melanoma Social History Social History Smoking packs per day: 0.75 Smoking cigarettes per day: 15.0 Years smoked: 10 Smoking pack-years: 7.50 Smoking status: Former smoker Smoking end date: 06/19/09 Alcohol intake: never Substance use: never Gender identity (if verbalized by the patient): Female Spiritual care concerns: No Exam Narrative: Exam Narrative: GENERAL: Well-appearing, well-nourished, and in no acute distress. HEAD: Normocephalic, atraumatic. EYES: EOMI. CHEST: Clear to auscultation. No respiratory distress. No wheezes rales or rhonchi HEART: Regular rate and rhythm. No murmur heard. Normal peripheral pulses. ABDOMEN: Soft, nontender, nondistended, normal active bowel sounds. EXTREMITIES: Normal range of motion. No edema. SKIN: Warm, dry, no rash. NEURO: No focal deficits. Alert and oriented x3. PSYCH: Normal mood and affect PELVIC: Normal external genitalia. Small amount of bright red blood in the vaginal vault. Normal-appearing cervix Course Consultations Consultation #1: Spoke with Dr. Perdomo's office about patient. Dr. Perdomo reviewed ultrasound. Patient is to follow up in clinic Date: 10/13/20 Time: 18:38 Vital Signs Vital signs: Vital Signs Temperature 97.0 F L 10/13/20 15:21 Pulse Rate 97 10/13/20 15:21 Respiratory Rate 17 10/13/20 15:21 Blood Pressure 109/73 10/13/20 15:21 Pulse Oximetry 99 10/13/20 15:21 Temperature 97.0 F L 10/13/20 15:21 Pulse Rate 97 10/13/20 15:21 Respiratory Rate 17 10/13/20 15:21 Blood Pressure 109/73 10/13/20 15:21 Pulse Oximetry 99 10/13/20 15:21 MDM - Female Genitourinary MDM Narrative Medical decision making narrative: Patient presents to the emergency department for vaginal bleeding, about 8 weeks by LMP. Her vitals are stable. Hemoglobin is 12. Patient is A positive. Does have a very small amount of bright red blood in the vaginal vault. Ultrasound shows a singl
== END 2020-10-13 18:53 | disposition home or self-care (01) ==
PROVIDERS: Emergency Medicine; Emergency Provider Emergency Medicine; PCP Obstetrics & Gynecology
DX: O46.8X1 Other antepartum hemorrhage, first trimester (principal); O99.341 Other mental disorders complicating pregnancy, first trimester; F90.9 Attention-deficit hyperactivity disorder, unspecified type; F32.9 Major depressive disorder, single episode, unspecified; F41.1 Generalized anxiety disorder; O99.281 Endocrine, nutritional and metabolic diseases complicating pregnancy, first trimester; E05.90 Thyrotoxicosis, unspecified without thyrotoxic crisis or storm; Z87.891 Personal history of nicotine dependence; Z3A.01 Less than 8 weeks gestation of pregnancy
CPT/HCPCS: 36415; 76801; 84702; 85025; 85461; 99284

== ENCOUNTER 2020-10-15 15:32 | Emergency (ER) | payer SELFPAY ==
--- NOTE | ~2020-10-15 | US_ITS ---
EXAMINATION: US OB <=14 wk fetus w TV DATE: 10/15/2020 17:10 INDICATION: Vaginal bleeding during first trimester TECHNIQUE: Real-time pelvic ultrasound utilizing both a transvaginal and transabdominal probe was pe rformed. The interpreting radiologist was not present for the study. COMPARISON: 10/13/2020 FINDINGS: The uterus measures 7.3 x 5.3 x 5.3 cm. There is an intrauterine gestational sac. A yolk sac and fet al pole are identified. The crown rump length measures 7 mm, which correlates with an estimated gesta tional age of 6 weeks and 4 days. heart motion is identified measuring 122 beats per minute (bp m) by M-mode Doppler. Increase in size of a moderate hypoechoic subchorionic hematoma along the anter ior margin of the gestational sac currently measuring 4.3 x 1.5 x 3.1 cm. The right ovary measures 2.1 x 3.3 x 2.3 cm. 1.7 cm isoechoic lesion in the right ovary likely repres enting a corpus luteum cyst. The left ovary measures 2.2 x 1.6 x 1.1 cm. Vascular flow identified at both ovaries on color Doppler There is no free fluid in the pelvis. IMPRESSION: 1. Single living fetus with heart rate of 122 bpm. 2. Gestational age by ultrasound of 6 weeks 4 day(s) +/- 4 day(s) with ultrasound estimated date of delivery (MEH[facility]Z) of 06/06/2021 which is concordant with findings on the recent prior ultrasound. 3. Interval increase in size of a now moderate-sized subchorionic hematoma along the anterior margin of the gestational sac currently measuring 4.6 x 1.5 x 3.1 cm . Reviewed, dictated and finalized at location A. IMPRESSION: 1. Single living fetus with heart rate of 122 bpm. 2. Gestational age by ultrasound of 6 weeks 4 day(s) +/- 4 day(s) with ultraso und estimated date of delivery (MEHNAZ) of 06/06/2021 which is concordant with umer abdalla on the recent prior ultrasound. 3. Interval increase in size of a now moderate-sized subchorionic hematoma nannette g the anterior margin of the gestational sac currently measuring 4.6 x 1.5 x 3. 1 cm .
[2020-10-15 15:34] VITALS: BP 119/72; PULSE 111; RESP 18; TEMP 36.3; O2SAT 100
[2020-10-15 15:49] LABS: Basophils Percent Auto 0.4 % (0.2-1.2); Eosinophils Percent Auto 0.4 % (0-4.4); Hematocrit 38.6 % (37.0-47.0); Hemoglobin 13.1 g/dL (12.0-15.0); Immature Granulocyte Absolute 0.02 K/mm3 (0.00-0.031); Immature Granulocyte Percent A 0.2 % (0-0.5); Lymphocytes Absolute Auto 2.48 K/mm3 (0.9-3.2); Lymphocytes Percent Auto 27.8 % (18.3-44.2); Mean Corpuscular HGB Conc 33.9 g/dl (32-36); Mean Corpuscular Hemoglobin 31.3 pg (26-34); Mean Corpuscular Volume 92.1 fl (80-100); Mean Platelet Volume 10.1 fl (7.4-10.4); Monocytes Absolute Auto 0.8 K/mm3 (0.1-0.6); Monocytes Percent Auto 8.7 % (2.6-8.5); Neutrophils Absolute Auto 5.6 K/mm3 (1.3-6.7); Neutrophils Percent Auto 62.5 % (45.5-73.1); Platelet Count Result 289 k/mm3 (150-375); Red Blood Count 4.19 M/mm3 (4.2-5.4); Red Cell Distribution Width 12.1 % (11.5-14.5); White Blood Count 8.9 K/mm3 (4.5-10.0)
[2020-10-15 15:59] LABS: Alanine Aminotransferase 18 U/L (4-35); Albumin Level 4.4 g/dL (3.5-5.1); Alkaline Phosphatase 62 U/L (38-126); Anion Gap 8 mmol/L (8-16); Aspartate Amino Transferase 26 U/L (14-36); Bilirubin,Total 0.4 mg/dL (0.2-1.3); Blood Urea Nitrogen 8 mg/dL (7-17); Calcium 8.7 mg/dL (8.4-10.2); Carbon Dioxide 25 mmol/L (22-30); Chloride 103 mmol/L (98-107); Estimated CRCL calculation 116 ml/min; Estimated Glomerular Filt Rate > 60; Glucose 104 mg/dL (65-105); Lipase 487 U/L (23-300); Potassium 3.6 mmol/L (3.4-5.0); Sodium 136 mmol/L (137-145)
--- NOTE | 2020-10-15 16:40 | ED.NAVMDI ---
HPI - Nausea/Vomiting/Diarrhea General Chief complaint: Nausea/Vomiting/Diarrhea Stated complaint: Vomiting,6 weeks Time Seen by Provider: 10/15/20 16:18 Source: patient Mode of arrival: ambulatory Limitations: no limitations History of Present Illness HPI Narrative: This is a 29 year old female that presents to the ER for pelvic cramping since last night. Reports worsening since onset. Associated with nausea and vomiting. Also reports continued vaginal bleeding. I saw her in the ED two days ago for bleeding. She does have a subchorionic hematoma. Presented today again for worsening pain. Her OB is Dr. Perdomo. Denies fever, or dysuria. Related Data Home Medications Medication Instructions Recorded Confirmed prenat.vits,anju,[id number] 1 tablet 10/15/20 [Original Formula] Allergies Allergy/AdvReac Type Severity Reaction Status Date / Time cephalexin Allergy Rash Verified 10/15/20 15:39 prochlorperazine AdvReac Other Verified 10/15/20 15:39 [From Compazine] Review of Systems Review of Systems: Narrative: CONSTITUTIONAL: Denies fever GASTROINTESTINAL: Reports pelvic pain, nausea, vomiting GENITOURINARY: Denies dysuria All systems reviewed & are unremarkable except as noted in HPI and below PMFSH Past Medical History Medical History ADH disorder ADHD Brain tumor Depression Generalized anxiety disorder Generalized hyperhidrosis Glioma tectorial gliomahe Headache, migraine Hydrocephalus Hyperthyroidism Obesity (BMI 30-39.9) PIH ( induced hypertension) Surgical History Surgical History History of brain surgery 2011 History of cholecystectomy History of vaginal surgery complete vaginal reconstruction after vaginal Family History Family History Father Family history of elevated blood lipids Diabetes mellitus Depression Mother Melanoma Social History Social History Smoking packs per day: 0.75 Smoking cigarettes per day: 15.0 Years smoked: 10 Smoking pack-years: 7.50 Smoking status: Former smoker Smoking end date: 06/19/09 Alcohol intake: never Substance use: never Gender identity (if verbalized by the patient): Female Spiritual care concerns: No Exam Narrative: Exam Narrative: GENERAL: Well-appearing, well-nourished, and in no acute distress. HEAD: Normocephalic, atraumatic. EYES: EOMI. CHEST: Clear to auscultation. No respiratory distress. No wheezes rales or rhonchi HEART: Regular rate and rhythm. No murmur heard. Normal peripheral pulses. ABDOMEN: Soft, nontender, nondistended, normal active bowel sounds. EXTREMITIES: Normal range of motion. No edema. SKIN: Warm, dry, no rash. NEURO: No focal deficits. Alert and oriented x3. PSYCH: Normal mood and affect Course Consultations Consultation #1: Spoke with Dr. Terrazas about patient and work-up. Patient reports continued pain after Tylenol, Dr. Terrazas is okay with a short course of narcotics for her pain. Patient will also be started on Macrobid for asymptomatic bacteriuria . Date: 10/15/20 Time: 19:00 Vital Signs Vital signs: Vital Signs Temperature 97.3 F L 10/15/20 15:34 Pulse Rate 111 H 10/15/20 15:34 Respiratory Rate 18 10/15/20 15:34 Blood Pressure 119/72 10/15/20 15:34 Pulse Oximetry 100 10/15/20 15:34 Temperature 97.3 F L 10/15/20 15:34 Pulse Rate 111 H 10/15/20 15:34 Respiratory Rate 18 10/15/20 15:34 Blood Pressure 119/72 10/15/20 15:34 Pulse Oximetry 100 10/15/20 15:34 MDM - Nausea/Vomiting/Diarrhea MDM Narrative Medical decision making narrative: Patient presents to the emergency department for pelvic cramping. Also reporting nausea and vomiting. She is afebrile and nonto
[2020-10-15] MEDS: SODIUM CHLORIDE 0.9% IV 1,000 ML 999 ML IV CONT (17:08)
[2020-10-15] MEDS: diphenhydrAMINE HCl INJ 50 MG/ML VIAL 25 MG IV PUSH ×2 (17:08→18:30)
[2020-10-15] MEDS: METOCLOPRAMIDE HCL INJ 10 MG/2 ML VIAL IV PUSH (17:08)
[2020-10-15 18:49] LABS: Add Urine Microscopic? YES; Appearance Urine Cloudy (Clear); Bacteria Urine Trace /hpf; Bilirubin Urine Negative (Negative); Blood Urine Negative (Negative); Color Urine Amber (Yellow); Glucose Urine UA Negative (Negative); Ketones Urine 2+ mg/dL (Negative); Leukocyte Esterase Ur 3+ LEU/UL (Negative); Mucus Urine Heavy /lpf; Nitrate Urine Negative (Negative); Protein Urine 1+ mg/dL (Negative); Squamous Epithelial Cell Urine Many /hpf (Few)
[2020-10-15 18:50] LABS: Specific Grav Ur 1.031 (1.001-1.035)
[2020-10-15] MEDS: LORazepam INJ (*CRX) 2 MG/ML VIAL 0.5 MG IV PUSH (19:08)
== END 2020-10-15 21:17 | disposition home or self-care (01) ==
PROVIDERS: Physician Assistant; Emergency Provider Emergency Medicine; PCP Nurse Practitioner Family
DX: O46.8X1 Other antepartum hemorrhage, first trimester (principal); Z87.891 Personal history of nicotine dependence; Z3A.01 Less than 8 weeks gestation of pregnancy
CPT/HCPCS: 36415; 76801; 76817; 80053; 81001; 83690; 84702; 85025; 87086; 87088; 96361; 96365; 96366; 96375; 99284; J0131; J1200; J2060; J2765; J7030

== ENCOUNTER 2020-11-16 18:20 | Emergency (ER) | payer SELFPAY ==
[2020-11-16 20:54] VITALS: BP 101/62; PULSE 86; RESP 18; TEMP 36.6; O2SAT 100
[2020-11-16 22:00] VITALS: BP 111/84; PULSE 82; RESP 17; O2SAT 100
--- NOTE | 2020-11-16 22:28 | PC.NURSE ---
pt attemting void at this time
[2020-11-16 23:24] LABS: Add Urine Microscopic? YES; Appearance Urine Cloudy (Clear); Bacteria Urine Trace /hpf; Bilirubin Urine Negative (Negative); Color Urine Amber (Yellow); Glucose Urine UA Negative (Negative); Ketones Urine 2+ mg/dL (Negative); Leukocyte Esterase Ur 3+ LEU/UL (Negative); Mucus Urine Heavy /lpf; Nitrate Urine Negative (Negative); Protein Urine 2+ mg/dL (Negative); Squamous Epithelial Cell Urine Many /hpf (Few); Urobilinogen Urine Negative mg/dL (<2.0); WBC Urine 51-75 /hpf
[2020-11-16 23:34] LABS: Blood Urine Negative (Negative); Specific Grav Ur 1.032 (1.001-1.035)
[2020-11-17] MEDS: NITROFURANTOIN MONOHYD MACROCR 100 MG CAP PO (00:05)
[2020-11-17 00:06] VITALS: BP 110/70; PULSE 84; RESP 16; O2SAT 99
--- NOTE | 2020-11-17 00:12 | ED.GENADULT ---
HPI - General Adult General Chief complaint: Urogenital-Female Stated complaint: ABD PAIN CONFIRMED 11WKS IUP Time Seen by Provider: 11/16/20 21:30 History of Present Illness HPI narrative: Patient is a 30-year-old female who sees Dr. Perdomo that presents ER with lower abdominal cramping. Ongoing over the last day. No vaginal bleeding or discharge. Has history of subchorionic hemorrhage to her 12-week IUP. Last time she had discomfort like this the hemorrhage was enlarging and that was 1 month ago. No fevers or chills or sweats. Denies urinary frequency urgency or dysuria. Related Data Home Medications Medication Instructions Recorded Confirmed prenat.vits,anju,[id number] 1 tablet 10/15/20 [Original Formula] Allergies Allergy/AdvReac Type Severity Reaction Status Date / Time cephalexin Allergy Mild Rash Verified 11/16/20 21:50 prochlorperazine AdvReac Intermediate Anxiety Verified 11/16/20 21:50 [From Compazine] Review of Systems Constitutional: Constitutional: Denies chills and Denies fever(s) Gastrointestinal: Gastrointestinal: Reports abdominal pain, Denies diarrhea, Denies nausea and Denies vomiting Genitourinary: Genitourinary: Denies abnormal vaginal bleeding, Denies hematuria, Denies nocturia, Denies dysuria and Denies vaginal discharge PMFSH Past Medical History Medical History ADH disorder ADHD Brain tumor Depression Generalized anxiety disorder Generalized hyperhidrosis Glioma tectorial gliomahe Headache, migraine Hydrocephalus Hyperthyroidism Obesity (BMI 30-39.9) PIH ( induced hypertension) Surgical History Surgical History History of brain surgery 2011 History of cholecystectomy History of vaginal surgery complete vaginal reconstruction after vaginal Family History Family History Father Family history of elevated blood lipids Diabetes mellitus Depression Mother Melanoma Social History Social History Smoking packs per day: 0.75 Smoking cigarettes per day: 15.0 Years smoked: 10 Smoking pack-years: 7.50 Smoking status: Former smoker Smoking end date: 06/19/09 Alcohol intake: never Substance use: never Gender identity (if verbalized by the patient): Female Spiritual care concerns: No Exam Narrative: Exam Narrative: GENERAL: Well-appearing, well-nourished, and in no acute distress. HEAD: Normocephalic, atraumatic. CHEST: Clear to auscultation. No respiratory distress. HEART: Regular rate and rhythm. Normal peripheral pulses. ABDOMEN: Soft, nontender, nondistended. EXTREMITIES: Normal range of motion. No edema. NEURO: Alert and oriented x3. PSYCH: Normal mood and affect. Course Course Emergency Course: Patient informed results. Start Macrobid. Tylenol for pain. Follow-up with her OB. Bedside ultrasound showed an IUP with movement and positive heart tones. Vital Signs Vital signs: Vital Signs Temperature 97.9 F 11/16/20 20:54 Pulse Rate 86 11/16/20 20:54 Respiratory Rate 18 11/16/20 20:54 Blood Pressure 101/62 11/16/20 20:54 Pulse Oximetry 100 11/16/20 20:54 Temperature 97.9 F 11/16/20 20:54 Pulse Rate 84 11/17/20 00:06 Respiratory Rate 16 11/17/20 00:06 Blood Pressure 110/70 11/17/20 00:06 Pulse Oximetry 99 11/17/20 00:06 Medical Decision Making Vital Signs Vital Signs: Vital Signs Temperature 97.9 F 11/16/20 20:54 Pulse Rate 86 11/16/20 20:54 Respiratory Rate 18 11/16/20 20:54 Blood Pressure 101/62 11/16/20 20:54 Pulse Oximetry 100 11/16/20 20:54 Temperature 97.9 F 11/16/20 20:54 Pulse Rate 84 11/17/20 00:06 Respiratory Rate 16 11/17/20 00:06 Blood Pressure 110/70 11/17/20
== END 2020-11-17 00:24 | disposition home or self-care (01) ==
PROVIDERS: Emergency Provider Emergency Medicine; PCP Nurse Practitioner Family
DX: O23.41 Unspecified infection of urinary tract in pregnancy, first trimester (principal); Z87.891 Personal history of nicotine dependence
CPT/HCPCS: 81001; 87086; 87088; 99283; A9270

== ENCOUNTER 2020-11-17 15:15 | Outpatient (CLI) | payer SELFPAY ==
--- NOTE | ~2020-11-17 | US_ITS ---
EXAMINATION: US renal BI DATE: 11/17/2020 16:00 INDICATION: Low back pain. First trimester. TECHNIQUE: Multiple ultrasound grayscale images of the kidneys were obtained. COMPARISON: CT abdomen and pelvis 09/13/2019 FINDINGS: The right kidney measures 9.1 x 5.6 x 4.5 cm. The left kidney measures 9.1 x 4.7 x 5.5 cm. The kidney s demonstrate normal parenchymal echogenicity. There is no hydronephrosis. The bladder is normal. IMPRESSION: 1. Normal kidneys. No hydronephrosis. Reviewed, dictated and finalized at location A.
== END 2020-11-17 15:16 | disposition home or self-care (01) ==
PROVIDERS: PCP Nurse Practitioner Family; Visit Provider Obstetrics & Gynecology
DX: M54.5 Low back pain (principal)
CPT/HCPCS: 76775

== ENCOUNTER 2020-12-23 12:16 | Emergency (ER) | payer BC, SELFPAY ==
--- NOTE | ~2020-12-23 | XR_ITS ---
XR ribs LT 2V DATE: 12/23/2020 16:04 INDICATION: Fall, striking ribs. Lower left anterior rib pain. TECHNIQUE: 3 views COMPARISON: None FINDINGS: No left rib fracture or bone destruction or any underlying pulmonary infiltrate, pleural ef fusion or pneumothorax is detected. IMPRESSION: Negative left ribs Reviewed, dictated and finalized at location A. IMPRESSION: Negative left ribs
--- NOTE | ~2020-12-23 | US_ITS ---
EXAMINATION: US OB limited EXAM DATE: 12/23/2020 13:19 INDICATION: Traumatic fall, 16 weeks gestation age. 2nd trimester. TECHNIQUE: Pelvic obstetrical transabdominal sonogram was performed by a technologist. There are mu ltiple grayscale and Doppler images available for interpretation. FINDINGS: There is a single fetus identified in transverse presentation with a heart rate of 153 beat s per minute. The placenta is located in the posterior position. There is no sonographic evidence of retroplacental hemorrhage identified. IMPRESSION: 1. Single fetus in transverse presentation with heart rate 153 beats per minute. 2. Unremarkable posteriorly located placenta. Reviewed, dictated and finalized at location B. IMPRESSION: 1. Single fetus in transverse presentation with heart rate 153 beats per minut e. 2. Unremarkable posteriorly located placenta.
[2020-12-23 12:44] VITALS: BP 112/51; PULSE 107; RESP 18; TEMP 36.4; O2SAT 99
--- NOTE | 2020-12-23 12:49 | PC.NURSE ---
VERBAL ORDER FROM NICK EDMOND FOR OB US LIMITED FOR TRAUMA
--- NOTE | 2020-12-23 14:25 | PC.NURSE ---
Pt resting on cart HOB elevated, denies SOB, no resp distress. States yesterday she slipped and hit L lateral ribcage on bathtub, denies hitting head. Tender on palpation, no deformity or bruising noted. Denies vaginal bleeding or contractions
--- NOTE | 2020-12-23 16:02 | ED.FALL ---
HPI - Fall General Chief Complaint: Fall Stated Complaint: fell on abd, pain/cramping. 16weeks preg Time Seen by Provider: 12/23/20 14:24 Source: patient Mode of arrival: ambulatory Limitations: no limitations History of Present Illness HPI Narrative: Patient is a 30 year old female who presents complaining of left sided abdominal and rib pain s/p fall in shower hitting abdomen and ribs on tub yesterday. Patient is 16 weeks and [address]YN is Dr. Perdomo. Patient denies vaginal bleeding or discharge. She reports abdominal cramping and pain to left ribs. She reports taking Tylenol without relief. She denies all other complaints at this time. MD complaint: fall Related Data Home Medications Medication Instructions Recorded Confirmed prenat.vits,anju,[id number] 1 tablet 10/15/20 [Original Formula] Allergies Allergy/AdvReac Type Severity Reaction Status Date / Time cephalexin Allergy Mild Rash Verified 11/16/20 21:50 prochlorperazine AdvReac Intermediate Anxiety Verified 11/16/20 21:50 [From Compazine] Review of Systems Review of Systems: Narrative: CONSTITUTIONAL: Denies fever, chills, or sweats. EYES: Denies visual changes, redness, or discharge. ENT: Denies rhinorrhea, congestion, sore throat, or otalgia. CARDIOVASCULAR: Denies chest pain, palpitations, or edema. RESPIRATORY: Denies cough or dyspnea. Reports left rib pain GASTROINTESTINAL: Denies nausea, vomiting, or diarrhea. GENITOURINARY: Reports abdominal/pelvic cramping SKIN: Denies rash or itching. MUSCULOSKELETAL: Denies back pain, joint pain, or myalgia. NEUROLOGIC: Denies headache, numbness, dizziness, or weakness. PSYCHIATRIC: Denies anxiety or depression. [facility] Past Medical History Medical History ADH disorder ADHD Brain tumor Depression Generalized anxiety disorder Generalized hyperhidrosis Glioma tectorial gliomahe Headache, migraine Hydrocephalus Hyperthyroidism Obesity (BMI 30-39.9) PIH ( induced hypertension) Surgical History Surgical History History of brain surgery 2011 History of cholecystectomy History of vaginal surgery complete vaginal reconstruction after vaginal Family History Family History Father Family history of elevated blood lipids Diabetes mellitus Depression Mother Melanoma Social History Social History Smoking packs per day: 0.75 Smoking cigarettes per day: 15.0 Years smoked: 10 Smoking pack-years: 7.50 Smoking status: Former smoker Smoking end date: 06/19/09 Alcohol intake: never Substance use: never Gender identity (if verbalized by the patient): Female Spiritual care concerns: No Comments At the time of signature, I have reviewed and agree with nursing past medical, surgical, social, and family history unless otherwise noted. Please see nursing chart for further information. There is no relevant family history pertinent to the presenting complaint. Exam Narrative: Exam Narrative: GENERAL: Well-appearing, well-nourished, and in no acute distress. HEAD: Normocephalic, atraumatic. EYES: EOMI. No redness or drainage. Conjunctiva are normal. ENT: Mucous membranes pink and moist. CHEST: No respiratory distress. Clear to auscultation. Tenderness to left ribs with palpation HEART: Regular rate and rhythm. GI: Soft, nontender without rebound, or guarding. No distention. Bowel sounds normal in all quadrants. MUSCULOSKELETAL: No bony tenderness. EXTREMITIES: Normal range of motion. No edema. SKIN: Warm, dry, no rash. NEURO: No focal deficits. Alert and oriented x3. Gait steady. PSYCH: Normal affect. No signs of depression or anxiety. Course Consultations Consultation #1: Spoke with Dr. Terrazas, who reports that patient
[2020-12-23 16:47] VITALS: BP 114/65; PULSE 99; RESP 20; O2SAT 100
== END 2020-12-23 16:51 | disposition home or self-care (01) ==
PROVIDERS: Emergency Provider Nurse Practitioner; PCP Nurse Practitioner Family
DX: O9A.212 Injury, poisoning and certain other consequences of external causes complicating pregnancy, second trimester (principal); R07.81 Pleurodynia; O99.211 Obesity complicating pregnancy, first trimester; E66.9 Obesity, unspecified; O99.282 Endocrine, nutritional and metabolic diseases complicating pregnancy, second trimester; E05.90 Thyrotoxicosis, unspecified without thyrotoxic crisis or storm; O99.352 Diseases of the nervous system complicating pregnancy, second trimester; G91.9 Hydrocephalus, unspecified; Z3A.16 16 weeks gestation of pregnancy; Z87.891 Personal history of nicotine dependence; W19.XXXA Unspecified fall, initial encounter
CPT/HCPCS: 71100; 76815; 99284

== ENCOUNTER 2021-02-08 11:38 | Observation (INO) | payer BC, SELFPAY ==
--- NOTE | 2021-02-08 11:38 | OBADM ---
This patient, Christine Jimenes, admitted to the OB room OB Post 113 for observation. Patient/family oriented to hospital policies and general routines including ID bracelet, bed and alarms, visiting hours, pain management, procedures, bathroom and other care routines, personal items, smoking policy, room service/diet, and visiting hours. Patient/Family are encouraged to report perceived risks to care and to ask questions if they do not understand what they are told or what they should do.
[2021-02-08 11:58] VITALS: BP 100/61; PULSE 89; TEMP 36.8
[2021-02-08] MEDS: DEXTROSE 5%/LACTATED RINGERS 1,000 ML 125 ML IV CONT (12:22)
[2021-02-08 12:37] LABS: Hematocrit 35.2 % (37.0-47.0); Hemoglobin 11.7 g/dL (12.0-15.0); Mean Corpuscular HGB Conc 33.2 g/dl (32-36); Mean Corpuscular Hemoglobin 31.3 pg (26-34); Mean Corpuscular Volume 94.1 fl (80-100); Mean Platelet Volume 10.1 fl (7.4-10.4); Platelet Count Result 233 k/mm3 (150-375); Red Blood Count 3.74 M/mm3 (4.2-5.4); Red Cell Distribution Width 13.8 % (11.5-14.5); White Blood Count 7.6 K/mm3 (4.5-10.0)
[2021-02-08 12:43] LABS: Add Urine Microscopic? YES; Appearance Urine Cloudy (Clear); Bacteria Urine Trace /hpf; Bilirubin Urine Negative (Negative); Color Urine Amber (Yellow); Glucose Urine UA Negative (Negative); Ketones Urine 2+ mg/dL (Negative); Leukocyte Esterase Ur 3+ LEU/UL (Negative); Mucus Urine Few /lpf; Nitrate Urine Negative (Negative); Protein Urine 2+ mg/dL (Negative); RBC Urine 0-2 /hpf (0-2); Squamous Epithelial Cell Urine Many /hpf (Few)
[2021-02-08 12:49] LABS: Alanine Aminotransferase 21 U/L (4-35); Albumin Level 3.5 g/dL (3.5-5.1); Alkaline Phosphatase 67 U/L (38-126); Anion Gap 9 mmol/L (8-16); Aspartate Amino Transferase 29 U/L (14-36); Bilirubin,Total 0.2 mg/dL (0.2-1.3); Blood Urea Nitrogen 8 mg/dL (7-17); Calcium 8.6 mg/dL (8.4-10.2); Carbon Dioxide 21 mmol/L (22-30); Chloride 102 mmol/L (98-107); Estimated Glomerular Filt Rate > 60; Glucose 87 mg/dL (65-110); Potassium 3.4 mmol/L (3.4-5.0); Sodium 132 mmol/L (137-145)
[2021-02-08 13:14] LABS: Blood Urine Negative (Negative)
--- NOTE | 2021-02-08 13:15 | PC.NURSE ---
Updated Dr. Perdomo with lab results, VS and maternal/ assessments. Patient IV fluid bolus completed. Patient states back pain constant across mid back. Back pain does not increase with movement or palpation. Patient stated she did take tylenol at 0900 for back pain, patient states pain is starting to increase and rates her pain at a 7/10. Order to continue to oral hydrate and patient may take Tylenol for pain. Patient may take Tylenol before discharge here or may be discharged to home and take Tylenol at home.
--- NOTE | 2021-02-08 13:20 | PC.NURSE ---
Plan of care discussed with patient. Patient states she would feel more comfortable taking Tylenol in the hospital prior to discharge.
[2021-02-08] MEDS: ACETAMINOPHEN 500 MG TABLET 1000 MG PO (13:34)
--- NOTE | 2021-02-08 14:30 | PC.NURSE ---
Updated Dr. Perdomo that patient reports pain still is at 7/10 after Tylenol. Order for one time dose of Flexeril given and patient to be discharge to home following dose. Patient to be instructed to call office to set up physical therapy upon discharge.
[2021-02-08] MEDS: CYCLOBENZAPRINE HCL 5 MG TABLET PO (14:49)
--- NOTE | 2021-02-08 14:50 | PC.NURSE ---
Discharge instructions were reviewed with patient. Patient states understanding. Pain interventions reviewed with patient. Patient encouraged to use heat therapy and stretching to further assist with pain relief. Patient instructed to continue to take Tylenol as ordered at home for pain. Patient also instructed to call Dr. Hicks office upon discharge to set up physical therapy. Patient states she will not be calling office to set up physical therapy and would like to try a massage instead. Informed patient that the discharge instructions given were for patient to call Dr. Hicks office to set up physical therapy, patient states her understanding. Patient is agreeable to discharge and denies questions.
--- NOTE | 2021-02-11 07:05 | PM.OBTRLD ---
OB - Triage/Final Diagnosis Visit Information Reason for evaluation: other (back pain) Comments/Additional reasons for admission: I have assessed the risk for this patient, Christine Jimenes, and determined that she would benefit from observation care. Evaluation Laboratory results: Laboratory Tests 02/08/21 02/08/21 02/08/21 12:24 12:24 12:24 WBC 7.6 RBC 3.74 L Hgb 11.7 L Hct 35.2 L MCV 94.1 MCH 31.3 MCHC 33.2 RDW 13.8 Plt Count 233 MPV 10.1 Sodium 132 L Potassium 3.4 Chloride 102 Carbon Dioxide 21 L Anion Gap 9 BUN 8 Creatinine 0.50 L Estim Creat Clear Calc Not Reportable Estimated GFR > 60 Glucose 87 Calcium 8.6 Total Bilirubin 0.2 AST 29 ALT 21 Alkaline Phosphatase 67 Total Protein 7.0 Albumin 3.5 Urine Color [place] Urine Appearance Cloudy H Urine pH 6.0 Ur Specific [place] 1.030 Urine Protein 2+ H Urine Glucose (UA) Negative Urine Ketones 2+ H Ur Blood (Man) Negative Urine Nitrate Negative Urine Bilirubin Negative Urine Urobilinogen 4.0 H Leukocyte Esterase Rfl 3+ H Urine RBC 0-2 Urine WBC 7-9 H Ur Squamous Epith Cells Many H Urine Bacteria Trace Urine Mucus Few H
== END 2021-02-08 14:55 | disposition home or self-care (01) ==
PROVIDERS: Admitting Provider Obstetrics & Gynecology; PCP Nurse Practitioner Family; Visit Provider Obstetrics & Gynecology
DX: O99.892 Other specified diseases and conditions complicating childbirth (principal); M54.9 Dorsalgia, unspecified; Z3A.23 23 weeks gestation of pregnancy
CPT/HCPCS: 36415; 80053; 81001; 85027; 87086; 87088; A9270; G0378; G0379; J7121

== ENCOUNTER 2021-03-06 11:00 | Observation (INO) | payer BC, SELFPAY ==
[2021-03-06] VITALS (13 sets, daily range): BP systolic 94–97; BP diastolic 55–56; PULSE 86–112; O2SAT 100; BMI 21.7
--- NOTE | 2021-03-06 11:00 | OBADM ---
This patient, Christine Jimenes, admitted to the OB room OB Post 116 for observation. Patient/family oriented to hospital policies and general routines including ID bracelet, bed and alarms, visiting hours, pain management, procedures, bathroom and other care routines, personal items, smoking policy, room service/diet, and visiting hours. Patient/Family are encouraged to report perceived risks to care and to ask questions if they do not understand what they are told or what they should do.
[2021-03-06] MEDS: TERBUTALINE SULFATE 1 MG/ML VIAL 0.25 MG SUB-Q (12:10)
--- NOTE | 2021-03-06 14:00 | PC.NURSE ---
pt able to void at this time. States feel better after hydration.
[2021-03-06 14:26] LABS: Add Urine Microscopic? YES; Appearance Urine Clear (Clear); Bilirubin Urine Negative (Negative); Blood Urine Negative (Negative); Color Urine Yellow (Yellow); Glucose Urine UA 1+ mg/dL (Negative); Ketones Urine Trace mg/dL (Negative); Leukocyte Esterase Ur Negative LEU/UL (NEGATIVE); Mucus Urine Rare /lpf; Nitrate Urine Negative (Negative); Protein Urine Negative (Negative); RBC Urine 0-2 /hpf (0-2); Specific Grav Ur 1.019 (1.001-1.035); Squamous Epithelial Cell Urine Rare /hpf (Few); WBC Urine 0-3 /hpf (0-3)
--- NOTE | 2021-03-10 13:19 | PM.OBTRLD ---
OB - Triage/Final Diagnosis Visit Information Reason for evaluation: threatened labor Comments/Additional reasons for admission: I have assessed the risk for this patient, Christine Jimenes, and determined that she would benefit from observation care. Evaluation Laboratory results: Laboratory Tests 03/06/21 12:58 Urine Color Yellow Urine Appearance Clear Urine pH 6.0 Ur Specific [place] 1.019 Urine Protein Negative Urine Glucose (UA) 1+ H Urine Ketones Trace Ur Blood (Man) Negative Urine Nitrate Negative Urine Bilirubin Negative Urine Urobilinogen 2.0 H Ur Leukocyte Esterase Negative Urine RBC 0-2 Urine WBC 0-3 Ur Squamous Epith Cells Rare Urine Mucus Rare
== END 2021-03-06 14:15 | disposition home or self-care (01) ==
PROVIDERS: Admitting Provider Obstetrics & Gynecology; PCP Nurse Practitioner Family; Visit Provider Obstetrics & Gynecology
DX: O47.03 False labor before 37 completed weeks of gestation, third trimester (principal); Z3A.26 26 weeks gestation of pregnancy
CPT/HCPCS: 81001; 87086; 87088; 96372; G0378; G0379; J3105

== ENCOUNTER 2021-03-28 20:17 | Outpatient (CLI) | payer BC, SELFPAY ==
[2021-03-28 20:37] VITALS: BP 110/65; PULSE 112
== END 2021-03-28 21:22 | disposition home or self-care (01) ==
LOC: ANHOBOP 20:21 → ANHOBPP 04-05 07:29
PROVIDERS: PCP Nurse Practitioner Family; Visit Provider Obstetrics & Gynecology
DX: O42.90 Premature rupture of membranes, unspecified as to length of time between rupture and onset of labor, unspecified weeks of gestation (principal); Z3A.00 Weeks of gestation of pregnancy not specified
CPT/HCPCS: 59025; 84112; 99199

== ENCOUNTER 2021-04-10 15:39 | Observation (INO) | payer BC, SELFPAY ==
[2021-04-10] VITALS (25 sets, daily range): BP systolic 92–113; BP diastolic 54–81; PULSE 84–117; TEMP 36.6
[2021-04-10] MEDS: LACTATED RINGERS 1,000 ML 999 ML IV CONT (16:16)
[2021-04-10] MEDS: oxyCODONE/ACETAMINOPHEN (*CRX) 5-325 MG TABLET 1 TABLET PO (16:17)
--- NOTE | 2021-04-10 16:36 | PC.NURSE ---
153- called,informed pt came in for headache. She took 2 fioricet today and doesn't feel any better. Orders received.
[2021-04-10] MEDS: MAGNESIUM SULF 2 GM/WATER 50ML 2 GM/50 ML BAG IVPB (16:58)
[2021-04-10] MEDS: LACTATED RINGERS 1,000 ML 100 ML IV CONT (16:58)
--- NOTE | 2021-04-10 18:45 | PC.NURSE ---
In to offer original order of pain medication, pt declines reglan and ativan order. order from dr. crews to give morphine 4 mg IV if pt decline original order.
--- NOTE | 2021-04-10 19:11 | PC.NURSE ---
pt states last mri was in october 2019. pt sees dr. richardson at [facility] for brain tumor
[2021-04-10] MEDS: MORPHINE SULFATE (*CRX) 2 MG/ML INJ 4 MG IV PUSH (19:21)
--- NOTE | 2021-04-10 20:23 | PC.NURSE ---
Pt requesting to be d/c home, report to dr. crews. orders to d/c home follow up with neurologist within 1 month.
--- NOTE | 2021-04-10 20:40 | PC.NURSE ---
pt IV d/c, 2x2 applied wnl
--- NOTE | 2021-04-13 16:02 | PM.OBTRLD ---
OB - Triage/Final Diagnosis Visit Information Comments/Additional reasons for admission: I have assessed the risk for this patient, Christine Jimenes, and determined that she would benefit from observation care. Final Diagnosis (1) Brain tumor: Code(s): D49.6 - Neoplasm of unspecified behavior of brain Status: Acute (2) Headache, migraine: Code(s): G43.909 - Migraine, unspecified, not intractable, without status migrainosus Status: Acute
== END 2021-04-10 20:50 | disposition home or self-care (01) ==
LOC: ANHOBOP 04-13 07:38 → ANHOBPP 04-13 14:37
PROVIDERS: Admitting Provider Obstetrics & Gynecology; PCP Nurse Practitioner Family; Visit Provider Obstetrics & Gynecology
DX: O99.891 Other specified diseases and conditions complicating pregnancy (principal); G43.909 Migraine, unspecified, not intractable, without status migrainosus; D49.6 Neoplasm of unspecified behavior of brain; Z3A.31 31 weeks gestation of pregnancy
CPT/HCPCS: 59025; 96361; 96374; 96375; 99199; A9270; G0378; G0379; J2270; J3475; J7120

== ENCOUNTER 2021-04-11 16:43 | Outpatient (RCR) | payer BC, SELFPAY ==
[2021-04-11 17:28] VITALS: BP 110/70; PULSE 97
--- NOTE | 2021-04-11 17:28 | PC.NURSE ---
Pt came in crying,with her head in her hands stating her headache today is so much worse then when she left here last night. Pt had been seen in OB yesterday evening for a headache and was discharge with the pain being 3 on scale of 1-10. Pt is crying saying over and over that she isn't lying and that she should've taken the recommended medication yesterday of reglan and that she will take it now. Pt states she has an inoperable brain tumor and that she hasn't had any headaches like this during this . Pt states this headache feels like when she was first diagnosed in 2014 prior to her surgery. I asked for her neurologist name so I could call him to inform him of her new complaints. Pt was hesitant to give name, eventually told me at [facility] in [facility]. I called the exchange and was able to speak to about the pt. He stated the pt needs an LP and that he doesn't recommend any medications be given because they won't work for hydrocephalus, which is the pt's diagnosis per the pt. He stated she could have it done here in our ER or come to [facility] now and have the LP done with a possible CT scan. called,informed of conversation with and with pt and she gave order to discharge pt if NST is reactive and have pt go to [facility] for further evaluation. Pt is very tearful and states she doesn't want an LP done and that she is afraid she will get there and it will be nothing and everyone will think she made it up . I explained to her that we believe her and her pain and want to get her the proper treatment since we will not be able to get her seen by a neurologist today. 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 Pt wanted to know what the wait time was in our ER, informed her that they have 4 people waiting with full beds. I asked her if she is scared of what she might find out with further testing and she stated she just doesn't want people to think she is faking it. Pt 's is coming to get her and will drive her to [facility] for further evaluation.
== END 2021-07-01 14:13 | disposition home or self-care (01) ==
LOC: ANHOBOP 16:43
PROVIDERS: PCP Nurse Practitioner Family; Visit Provider Obstetrics & Gynecology
DX: O26.893 Other specified pregnancy related conditions, third trimester (principal); R51.9 Headache, unspecified; Z3A.31 31 weeks gestation of pregnancy
CPT/HCPCS: 59025

== ENCOUNTER 2021-04-16 17:46 | Outpatient (CLI) | payer BC, SELFPAY ==
[2021-04-16] VITALS (11 sets, daily range): BP systolic 98–112; BP diastolic 57–73; PULSE 69–107
[2021-04-16 18:43] LABS: Basophils Percent Auto 0.3 % (0.2-1.2); Eosinophils Absolute Auto 0.1 K/mm3 (0-0.3); Eosinophils Percent Auto 1.3 % (0-4.4); Hematocrit 32.8 % (37.0-47.0); Hemoglobin 10.9 g/dL (12.0-15.0); Immature Granulocyte Absolute 0.02 K/mm3 (0.00-0.031); Immature Granulocyte Percent A 0.3 % (0-0.5); Lymphocytes Absolute Auto 1.73 K/mm3 (0.9-3.2); Lymphocytes Percent Auto 25.1 % (18.3-44.2); Mean Corpuscular HGB Conc 33.2 g/dl (32-36); Mean Corpuscular Volume 96.2 fl (80-100); Mean Platelet Volume 9.9 fl (7.4-10.4); Monocytes Absolute Auto 0.5 K/mm3 (0.1-0.6); Monocytes Percent Auto 7.4 % (2.6-8.5); Neutrophils Absolute Auto 4.5 K/mm3 (1.3-6.7); Neutrophils Percent Auto 65.6 % (45.5-73.1); Platelet Count Result 210 k/mm3 (150-375); Red Blood Count 3.41 M/mm3 (4.2-5.4); Red Cell Distribution Width 13.1 % (11.5-14.5); White Blood Count 6.9 K/mm3 (4.5-10.0)
[2021-04-16 18:48] LABS: Add Urine Microscopic? YES; Appearance Urine Cloudy (Clear); Bacteria Urine Trace /hpf; Bilirubin Urine Negative (Negative); Blood Urine Negative (Negative); Color Urine Yellow (Yellow); Glucose Urine UA Negative (Negative); Ketones Urine Negative (Negative); Leukocyte Esterase Ur 3+ LEU/UL (NEGATIVE); Mucus Urine Heavy /lpf; Nitrate Urine Negative (Negative); Protein Urine 1+ mg/dL (Negative); Specific Grav Ur 1.025 (1.001-1.035); Squamous Epithelial Cell Urine Many /hpf (Few); WBC Urine 31-50 /hpf (0-3)
[2021-04-16 19:05] LABS: Alanine Aminotransferase 20 U/L (4-35); Alkaline Phosphatase 110 U/L (38-126); Anion Gap 7 mmol/L (8-16); Aspartate Amino Transferase 26 U/L (14-36); Bilirubin,Total < 0.1 mg/dL (0.2-1.3); Blood Urea Nitrogen 8 mg/dL (7-17); Calcium 8.2 mg/dL (8.4-10.2); Carbon Dioxide 22 mmol/L (22-30); Chloride 107 mmol/L (98-107); Estimated Glomerular Filt Rate > 60; Glucose 127 mg/dL (65-110); Potassium 3.9 mmol/L (3.4-5.0); Sodium 136 mmol/L (137-145); Uric Acid 5.1 mg/dL (2.5-7.5)
[2021-04-16] MEDS: ONDANSETRON HCL ODT 4 MG TABLET PO (19:15)
--- NOTE | 2021-04-16 19:46 | PC.NURSE ---
spoke to patient for headache medication. Pt states all the medication she has gotten gave emily rebound headache which was worse than before the medication. only medication worked for her was cocktail' of reglan, benadryl, and ativan. called Dr. Perdomo and reported pt admission for elevated BP and headaches. PIH lab and BP within normal limit, reactive NST with occasional contractions. Notified pt request for medication. order received for one time dose of reglan,benadryl, and ativan either PO or IV. okay to go home when pt feels better. Talked to pt about discussion with Dr. Perdomo. pt request IV medication.
[2021-04-16] MEDS: LORazepam INJ (*CRX) 2 MG/ML VIAL 0.5 MG IV PUSH (20:12)
[2021-04-16] MEDS: diphenhydrAMINE HCl INJ 50 MG/ML VIAL IV PUSH (20:13)
[2021-04-16] MEDS: METOCLOPRAMIDE HCL INJ 10 MG/2 ML VIAL IV PUSH (20:14)
--- NOTE | 2021-04-16 20:55 | PC.NURSE ---
pt states headaches are gone and feels much better. discharge to home
== END 2021-04-16 20:55 | disposition home or self-care (01) ==
LOC: ANHOBOP 17:51 → ANHOBPP 17:54
PROVIDERS: PCP Nurse Practitioner Family; Visit Provider Obstetrics & Gynecology
DX: O13.9 Gestational [pregnancy-induced] hypertension without significant proteinuria, unspecified trimester (principal); Z3A.00 Weeks of gestation of pregnancy not specified
CPT/HCPCS: 36415; 59025; 80053; 81001; 84550; 85025; 87086; 87088; 99199; A9270; J1200; J2060; J2765

== ENCOUNTER 2021-04-19 18:45 | Observation (INO) | payer BC, SELFPAY ==
[2021-04-19 18:55] VITALS: BP 122/69; PULSE 100
[2021-04-19] MEDS: TERBUTALINE SULFATE 1 MG/ML VIAL 0.25 MG SUB-Q (20:41)
[2021-04-19 20:44] VITALS: BP 102/66; PULSE 101
[2021-04-19 21:15] VITALS: RESP 18
--- NOTE | 2021-04-23 11:26 | PM.OBTRLD ---
OB - Triage/Final Diagnosis Visit Information Reason for evaluation: threatened labor Comments/Additional reasons for admission: I have assessed the risk for this patient, Christine Jimenes, and determined that she would benefit from observation care.
== END 2021-04-19 22:05 | disposition home or self-care (01) ==
PROVIDERS: Admitting Provider Obstetrics & Gynecology; PCP Nurse Practitioner Family; Visit Provider Obstetrics & Gynecology
DX: O47.03 False labor before 37 completed weeks of gestation, third trimester (principal); Z3A.33 33 weeks gestation of pregnancy
CPT/HCPCS: 96372; G0378; G0379; J3105

== ENCOUNTER 2021-05-06 15:00 | Observation (INO) | payer BC, SELFPAY ==
--- NOTE | 2021-05-06 15:00 | OBADM ---
This patient, Christine Jimenes, admitted to the OB room OB Post 115 for observation. Patient/family oriented to hospital policies and general routines including ID bracelet, bed and alarms, visiting hours, pain management, procedures, bathroom and other care routines, personal items, smoking policy, room service/diet, and visiting hours. Patient/Family are encouraged to report perceived risks to care and to ask questions if they do not understand what they are told or what they should do.
[2021-05-06 15:18] VITALS: BP 121/81; PULSE 109
[2021-05-06 15:25] VITALS: BMI 23.4
[2021-05-06 15:30] VITALS: BP 113/82; PULSE 111
[2021-05-06 15:45] VITALS: BP 117/73; PULSE 107
[2021-05-06 16:00] VITALS: BP 118/77; PULSE 105
[2021-05-06 16:07] LABS: Add Urine Microscopic? YES; Appearance Urine Cloudy (Clear); Bacteria Urine Trace /hpf; Bilirubin Urine Negative (Negative); Blood Urine Negative (Negative); Color Urine Yellow (Yellow); Glucose Urine UA 1+ mg/dL (Negative); Ketones Urine Negative (Negative); Leukocyte Esterase Ur 2+ LEU/UL (NEGATIVE); Mucus Urine Rare /lpf; Nitrate Urine Negative (Negative); Protein Urine 1+ mg/dL (Negative); Specific Grav Ur 1.028 (1.001-1.035); Squamous Epithelial Cell Urine Many /hpf (Few); Urobilinogen Urine Negative mg/dL (<2.0); WBC Urine 16-20 /hpf (0-3)
[2021-05-06 16:15] VITALS: BP 116/77; PULSE 106
[2021-05-06] MEDS: NIFEdipine 10 MG CAPSULE PO (16:27)
--- NOTE | 2021-05-18 16:29 | P.PNOB_ITS ---
OB - Triage/Final Diagnosis Visit Information Reason for evaluation: threatened labor Comments/Additional reasons for admission: I have assessed the risk for this patient, Christine Jimenes, and determined that she would benefit from observation care. Evaluation Laboratory results: Laboratory Tests 05/06/21 15:44 Urine Color Yellow Urine Appearance Cloudy H Urine pH 6.0 Ur Specific [place] 1.028 Urine Protein 1+ H Urine Glucose (UA) 1+ H Urine Ketones Negative Ur Blood (Man) Negative Urine Nitrate Negative Urine Bilirubin Negative Urine Urobilinogen Negative Ur Leukocyte Esterase 2+ H Urine RBC 3-5 H Urine WBC 16-20 H Ur Squamous Epith Cells Many H Urine Bacteria Trace Urine Mucus Rare
== END 2021-05-06 17:42 | disposition home or self-care (01) ==
PROVIDERS: Admitting Provider Obstetrics & Gynecology; PCP Nurse Practitioner Family; Visit Provider Obstetrics & Gynecology
DX: O47.03 False labor before 37 completed weeks of gestation, third trimester (principal); Z3A.35 35 weeks gestation of pregnancy
CPT/HCPCS: 81001; 87086; 87088; A9270; G0378; G0379

== ENCOUNTER 2021-05-14 11:12 | Observation (INO) | payer BC, SELFPAY ==
--- NOTE | 2021-05-14 13:49 | OBADM ---
This patient, Christine Jimenes, admitted to the OB room Labor/Delivery/Recovery 120 for observation. Patient/family oriented to hospital policies and general routines including ID bracelet, bed and alarms, visiting hours, pain management, procedures, bathroom and other care routines, personal items, smoking policy, room service/diet, and visiting hours. Patient/Family are encouraged to report perceived risks to care and to ask questions if they do not understand what they are told or what they should do.
--- NOTE | 2021-05-14 13:53 | PC.NURSE ---
8860- Spoke with Dr. Jefferson, recheck cervix 1.5//-3, orders to discharge to home if patient is agreeable, or patient may come stay to be rechecked.
--- NOTE | 2021-05-14 13:55 | PC.NURSE ---
1200- 145, reactive, no decels 1300- 145, reactive, no decels
--- NOTE | 2021-05-17 17:39 | PM.OBTRLD ---
OB - Triage/Final Diagnosis Visit Information Comments/Additional reasons for admission: I have assessed the risk for this patient, Christine Jimenes, and determined that she would benefit from observation care. Final Diagnosis (1) Abdominal pain affecting : Code(s): O26.899 - Other specified related conditions, unspecified trimester; R10.9 - Unspecified abdominal pain Status: Acute
== END 2021-05-14 13:45 | disposition home or self-care (01) ==
PROVIDERS: Admitting Provider Obstetrics & Gynecology; PCP Nurse Practitioner Family; Visit Provider Obstetrics & Gynecology
DX: O26.893 Other specified pregnancy related conditions, third trimester (principal); R10.9 Unspecified abdominal pain; Z3A.36 36 weeks gestation of pregnancy
CPT/HCPCS: G0378; G0379

== ENCOUNTER 2021-05-15 17:10 | Observation (INO) | payer BC, SELFPAY ==
[2021-05-15] VITALS (8 sets, daily range): BP systolic 109–124; BP diastolic 73–78; PULSE 98–120; TEMP 37.3; BMI 23.8
--- NOTE | 2021-05-15 17:10 | OBADM ---
This patient, Christine Jmienes, admitted to the OB room Labor/Delivery/Recovery 120 for observation. Patient/family oriented to hospital policies and general routines including ID bracelet, bed and alarms, visiting hours, pain management, procedures, bathroom and other care routines, personal items, smoking policy, room service/diet, and visiting hours. Patient/Family are encouraged to report perceived risks to care and to ask questions if they do not understand what they are told or what they should do.
--- NOTE | 2021-05-15 17:24 | PC.NURSE ---
Called Dr. Jefferson with pt status. SVE 2cm. Orders received.
[2021-05-15] MEDS: LACTATED RINGERS 1,000 ML 999 ML IV CONT (18:06)
[2021-05-15] MEDS: MORPHINE SULFATE INJ (*CRX) 10 MG/ML AMP 5 MG IM (18:08)
--- NOTE | 2021-05-17 17:38 | PM.OBTRLD ---
OB - Triage/Final Diagnosis Visit Information Comments/Additional reasons for admission: I have assessed the risk for this patient, Christine Jimenes, and determined that she would benefit from observation care. Final Diagnosis (1) uterine contractions: Code(s): O47.00 - False labor before 37 completed weeks of gestation, unspecified trimester Status: Acute
== END 2021-05-15 19:45 | disposition home or self-care (01) ==
PROVIDERS: Admitting Provider Obstetrics & Gynecology; PCP Nurse Practitioner Family; Visit Provider Obstetrics & Gynecology
DX: O60.03 Preterm labor without delivery, third trimester (principal); Z3A.36 36 weeks gestation of pregnancy
CPT/HCPCS: 96372; G0378; G0379; J2270; J7120

== ENCOUNTER 2021-05-16 17:32 | Observation (INO) | payer BC, SELFPAY ==
[2021-05-16 18:23] VITALS: TEMP 37.5
[2021-05-16 18:30] VITALS: BP 112/75; PULSE 106
[2021-05-16] MEDS: MORPHINE SULFATE INJ (*CRX) 10 MG/ML AMP 5 MG IM (18:41)
[2021-05-16] MEDS: LACTATED RINGERS 1,000 ML 999 ML IV CONT (18:41)
[2021-05-16 18:47] VITALS: BMI 23.8
--- NOTE | 2021-05-16 19:59 | PC.NURSE ---
Dr. Jefferson updated on the pt. pt rates her pain 6/10 which is improvement from 8/10 when she arrived. Pt contractions have spaced some and no cervical change between vaginal checks. Reactive strip with 1 late noted. aware. Orders received from Dr. Jefferson to discharge the pt. Dr. Jefferson stated the pt can try 1000mg Tylenol and 25mg Benadryl before bed and to call the office tomorrow morning to be seen by Dr. Perdomo.
--- NOTE | 2021-05-17 17:39 | PM.OBTRLD ---
OB - Triage/Final Diagnosis Visit Information Comments/Additional reasons for admission: I have assessed the risk for this patient, Christine Jimenes, and determined that she would benefit from observation care. Evaluation Vital signs: Vital Signs - 24 hr 05/16/21 18:23 05/16/21 18:30 Temperature 37.5 C Pulse Rate 106 H Blood Pressure 112/75 Final Diagnosis (1) uterine contractions: Code(s): O47.00 - False labor before 37 completed weeks of gestation, unspecified trimester Status: Acute
== END 2021-05-16 20:10 | disposition home or self-care (01) ==
PROVIDERS: Admitting Provider Obstetrics & Gynecology; PCP Nurse Practitioner Family; Visit Provider Obstetrics & Gynecology
DX: O47.1 False labor at or after 37 completed weeks of gestation (principal); Z3A.37 37 weeks gestation of pregnancy
CPT/HCPCS: 96360; 96372; G0378; G0379; J2270; J7120

== ENCOUNTER 2021-05-17 15:18 | Outpatient (CLI) | payer BC, SELFPAY ==
--- NOTE | ~2021-05-17 | US_ITS ---
EXAMINATION: US OB follow up DATE: 05/17/2021 15:57 INDICATION: Uterine size-date discrepancy. TECHNIQUE: Real-time ultrasound of the pelvis was performed. COMPARISON: Ultrasound 12/23/2020, 10/15/2020, 10/13/2020 FINDINGS: There is a single living fetus in vertex presentation. The placenta is posterior, 4.6 cm from the ce rvix. heart rate is 152 beats per minute (bpm). The amniotic fluid index is 18.1 cm, which is n ormal. The following biometric data were obtained: Biparietal diameter (BPD): 9.4 cm; head circumference (HC): 35.7 cm; abdominal circumference (AC): 33 .2 cm; femur length (FL): 7.4 cm. These measurements are discordant with HC/AC > 95th percentile. Estimated weight is 3354 g +/- 503 g, which correlates with 72nd percentile when 06/04/21 is us ed as estimated date of delivery. As single measurements, these parameters are each equal to the following estimated gestational ages w ith ranges of +/- 2 standard deviations: BPD: 38 weeks 1 days (35 weeks 0 days - 41 weeks 2 days). HC: Out of range. AC: 37 weeks 1 days (34 weeks 0 days - 40 weeks 1 days). FL: 37 weeks 6 days (34 weeks 6 days - 41 weeks 0 days). estimated gestational age based solely on measurements from this exam is 37 weeks 5 days +/- 2 weeks 4 days. IMPRESSION: 1. Single living fetus in vertex presentation. 2. Estimated weight is 3354 g +/- 503 g, which correlates with 72nd percentile when 06/04/21 i s used as estimated date of delivery. Note that estimated date of delivery based on the ultrasound fr om 10/13/2020 would be 06/09/2021. Reviewed, dictated and finalized at location A. [facility]ATION GEOLOGIST IMPRESSION: 1. Single living fetus in vertex presentation. 2. Estimated weight is 3354 g +/- 503 g, which correlates with 72nd perc entile when 06/04/21 is used as estimated date of delivery. Note that estimated date of delivery based on the ultrasound from 10/13/2020 would be 06/09/2021.
== END 2021-05-17 15:19 | disposition home or self-care (01) ==
LOC: ANHIMG 15:22
PROVIDERS: PCP Nurse Practitioner Family; Visit Provider Obstetrics & Gynecology
DX: O26.849 Uterine size-date discrepancy, unspecified trimester (principal); Z3A.00 Weeks of gestation of pregnancy not specified
CPT/HCPCS: 76816

== ENCOUNTER 2021-05-18 14:38 | Observation (INO) | payer BC, SELFPAY ==
--- NOTE | 2021-05-18 15:20 | PC.NURSE ---
SVE of /3 performed by Octavio Pacheco RN
--- NOTE | 2021-05-18 16:35 | OBADM ---
This patient, Christine Jimenes, admitted to the OB room Labor/Delivery/Recovery 119 for observation. Patient/family oriented to hospital policies and general routines including ID bracelet, bed and alarms, visiting hours, pain management, procedures, bathroom and other care routines, personal items, smoking policy, room service/diet, and visiting hours. Patient/Family are encouraged to report perceived risks to care and to ask questions if they do not understand what they are told or what they should do.
== END 2021-05-18 16:15 | disposition home or self-care (01) ==
PROVIDERS: Admitting Provider Obstetrics & Gynecology; PCP Nurse Practitioner Family; Visit Provider Obstetrics & Gynecology
DX: O47.1 False labor at or after 37 completed weeks of gestation (principal); Z3A.37 37 weeks gestation of pregnancy
CPT/HCPCS: 84112; G0378; G0379

== ENCOUNTER 2021-05-19 13:58 | Inpatient (IN) | payer BC, SELFPAY ==
[2021-05-19] VITALS (44 sets, daily range): BP systolic 107–133; BP diastolic 58–79; PULSE 55–80; RESP 16–18; TEMP 36.3–37; O2SAT 82–100; BMI 23.3
--- NOTE | 2021-05-19 13:58 | LDADM ---
This patient, Christine Jimenes, was admitted to Labor/Delivery/Recovery 120 on 05/19/21 at 13:58. Plans for labor, pain management and were discussed with patient. Patient/family oriented to hospital policies and general routines including ID bracelet, bed and alarms, visiting hours, pain management, procedures, bathroom and other care routines, personal items, smoking policy, room service/diet and guest tray routines, infant security routines, and visiting hours. Patient/Family are encouraged to report perceived risks to care and to ask questions if they do not understand what they are told or what they should do. See OBIX for further documentation.
[2021-05-19 18:15] LABS: Basophils Percent Auto 0.2 % (0.2-1.2); Eosinophils Absolute Auto 0.1 K/mm3 (0-0.3); Eosinophils Percent Auto 0.8 % (0-4.4); Hematocrit 38.3 % (37.0-47.0); Immature Granulocyte Absolute 0.03 K/mm3 (0.00-0.031); Immature Granulocyte Percent A 0.3 % (0-0.5); Lymphocytes Absolute Auto 2.31 K/mm3 (0.9-3.2); Lymphocytes Percent Auto 25.4 % (18.3-44.2); Mean Corpuscular HGB Conc 33.9 g/dl (32-36); Mean Corpuscular Hemoglobin 31.6 pg (26-34); Mean Platelet Volume 11.5 fl (7.4-10.4); Monocytes Absolute Auto 0.5 K/mm3 (0.1-0.6); Monocytes Percent Auto 5.8 % (2.6-8.5); Neutrophils Absolute Auto 6.1 K/mm3 (1.3-6.7); Neutrophils Percent Auto 67.5 % (45.5-73.1); Platelet Count Result 193 k/mm3 (150-375); Red Blood Count 4.12 M/mm3 (4.2-5.4); Red Cell Distribution Width 13.7 % (11.5-14.5); White Blood Count 9.1 K/mm3 (4.5-10.0)
[2021-05-19] MEDS: LACTATED RINGERS 1,000 ML 125 ML IV CONT ×2 (18:15→18:38)
--- NOTE | 2021-05-19 18:19 | WPDANESEPP ---
Anes - Eval Pre Procedure Procedure: Operation Date: 05/19/21 12:00 Proposed Procedures p Primary Section - Lev Perdomo MD Date/Time: 05/19/21 18:19 Surgeon: Conor Pre Op Diagnosis: C/S Patient Data Age: 30 Gender: F Height: 1.75 m Weight: 71.8 kg Allergies Allergy/AdvReac Type Severity Reaction Status Date / Time cephalexin Allergy Mild Rash Verified 02/08/21 12:35 prochlorperazine AdvReac Intermediate Anxiety Verified 02/08/21 12:35 [From Compazine] metoclopramide [From Reglan] AdvReac Anxiety Verified 02/08/21 12:35 Home Medications Medication Instructions Recorded Confirmed Type prenat.vits,anju,tif-ejfo-ejdqy 1 tablet PO DAILY 10/15/20 05/16/21 History risperidone 0.25 mg BID PRN 03/06/21 05/16/21 History sertraline 200 mg PO HS 03/06/21 05/16/21 History Laboratory Tests 05/19/21 05/19/21 18:09 18:09 WBC Pending RBC Pending Hgb Pending Hct Pending MCV Pending MCH Pending MCHC Pending RDW Pending Plt Count Pending MPV Pending Immature Gran % (Auto) Pending Neut % (Auto) Pending Lymph % (Auto) Pending Love % (Auto) Pending Eos % (Auto) Pending Baso % (Auto) Pending Lymph # (Auto) Pending Love # (Auto) Pending Eos # (Auto) Pending Baso # (Auto) Pending Abs Immat Gran (auto) Pending Absolute Neuts (auto) Pending Absolute Nucleated RBC Pending Nucleated RBC % Pending RPR Pending Patient hx anesthesia problems: none Family hx anesthesia problems: none Results Review: All pre-operative results and documents have been reviewed as part of the pre-operative evaluation. [facility] Past Medical History Medical History ADH disorder ADHD Brain tumor Depression Generalized anxiety disorder Generalized hyperhidrosis Glioma tectorial gliomahe Headache, migraine Hydrocephalus Hyperthyroidism Obesity (BMI 30-39.9) PIH ( induced hypertension) Surgical History Surgical History History of brain surgery 2011 History of cholecystectomy History of vaginal surgery complete vaginal reconstruction after vaginal Family History Family History Father Family history of elevated blood lipids Diabetes mellitus Depression Mother Melanoma Social History Social History Smoking packs per day: 0.75 Smoking cigarettes per day: 15.0 Years smoked: 10 Smoking pack-years: 7.50 Smoking status: Former smoker Alcohol intake: never Substance use: never Gender identity (if verbalized by the patient): Female Spiritual care concerns: No Exam Day of Procedure 05/19/21 18:19 Patient weight: obese Airway: Mallampati scale Neurological: alert and oriented
--- NOTE | 2021-05-19 18:59 | PM.IMHP ---
H&P: HPI History of Present Illness Date/Time: 05/19/21 18:59 A 10-year-old 2 para 1001 presents at 37 weeks in active labor. She has had irregular contractions over past 2-3 weeks with multiple exams and has been 2cm also in the office at 2cm. Is 4cm and giacomo regularly today. She has a history of traumatic vaginal delivery and has opted for elective delivery due to the problematic vaginal delivery she had with her 1st . Chief Complaint: contractions Review of Systems Review of Systems: All systems reviewed & are unremarkable except as noted in HPI and below PMFSH Past Medical History Medical History ADH disorder ADHD Brain tumor Depression Generalized anxiety disorder Generalized hyperhidrosis Glioma tectorial gliomahe Headache, migraine Hydrocephalus Hyperthyroidism Obesity (BMI 30-39.9) PIH ( induced hypertension) Surgical History Surgical History History of brain surgery 2011 History of cholecystectomy History of vaginal surgery complete vaginal reconstruction after vaginal Family History Family History Father Family history of elevated blood lipids Diabetes mellitus Depression Mother Melanoma Social History Social History Smoking packs per day: 0.75 Smoking cigarettes per day: 15.0 Years smoked: 10 Smoking pack-years: 7.50 Smoking status: Former smoker Alcohol intake: never Substance use: never Gender identity (if verbalized by the patient): Female Spiritual care concerns: No Meds Home Medications and Allergies Home Medications Medication Instructions Recorded Confirmed Type prenat.vits,anju,hzp-rbsj-jdwov 1 tablet PO DAILY 10/15/20 05/16/21 History risperidone 0.25 mg BID PRN 03/06/21 05/16/21 History sertraline 200 mg PO HS 03/06/21 05/16/21 History Allergies Allergy/AdvReac Type Severity Reaction Status Date / Time cephalexin Allergy Mild Rash Verified 02/08/21 12:35 prochlorperazine AdvReac Intermediate Anxiety Verified 02/08/21 12:35 [From Compazine] metoclopramide [From Reglan] AdvReac Anxiety Verified 02/08/21 12:35 Vital Signs Vital Signs - 24 hr 05/19/21 18:24 Respiratory Rate 18 Exam Const: General: cooperative and healthy appearing Resp: Effort & Inspection: normal respiratory effort Auscultation: clear to auscultation bilaterally Cardio: Rate: regular rate Rhythm: regular rhythm GI: Auscultation: normal bowel sounds : Bimanual exam- vagina & uterus: enlarged ( Fundal height 37cm heart tones 140) H&P: Results Labs Labs: Short CBC 05/19/21 Range/Units 18:09 WBC 9.1 (4.5-10.0) K/mm3 Hgb 13.0 (12.0-15.0) g/dL Hct 38.3 (37.0-47.0) % Plt Count 193 (150-375) k/mm3 Assessment and Plan Assessment and plan (1) 37 weeks gestation of : Code(s): Z3A.37 - 37 weeks gestation of Status: Acute (2) Obstetrical trauma with delivery: Code(s): O71.9 - Obstetric trauma, unspecified Status: Acute Additional Plan proceed with primary low-transverse section
--- NOTE | 2021-05-19 19:02 | WPDHPUPDATE1 ---
History and Physical Update Update Date/Time: 05/19/21 19:02 History and Physical has been reviewed, including an updated exam of the patient. There are NO changes in the patient's condition. Risks, benefits, and alternatives have been discussed and questions answered. Patient agrees to proceed with procedure.
[2021-05-19] MEDS: ceFAZolin 2 GM/D5W 50 ML 2 GM/50 ML BAG IVPB (19:08)
--- NOTE | 2021-05-19 19:45 | P.PCNOB_ITS ---
OB - Delivery Note Procedure Procedure: Procedures Operation Date: 05/19/21 <No data on this case meets the specified criteria> Route of delivery: Specimen: No Quantitative Blood Loss (ml): 325 Anesthesia type: Spinal Disposition: PACU Narrative: Patient prepped and draped in usual manner for this procedure. Pfannenstiel incision was made and then carried through the subcutaneous tissue to the fascia which was then extended bilaterally the length of the skin incision. Superiorly and inferiorly dissected away from the rectus muscles and the peritoneum was entered without difficulty. Bladder flap developed an uterus scored low transverse manner with clear fluid noted. Vertex was delivered wi thout difficulty and the rest of baby as well. Cord was clamped and cut placenta removed manually and uterus was exteriorized with membranes and clots removed from the endometrial cavity. Fat in uterine incision was then approximated using 0 Monocryl from left angle midline right angle to midline with good approximation hemostasis noted. Uterus returned to the abdomen hemostasis was again noted on the uterine incision. All subfascial tissue was noted be hemostatic and fascia was then approximated using 0 Vicryl from the left angle to midline and the right angle to midline. Subcutaneous tissue was hemostatic and approximated 0 plain suture. Ganga were then used to approximate the skin edges. Patient was sent to recovery room in stable condition. [place] Baby Weeks of gestation at delivery: 37 Infant gender: Male Weight (pounds): 7 Weight (ounces): 4 score one minute: 9 score five minutes: 9
[2021-05-19] MEDS: OXYTOCIN 30 UNITS/NS 500 ML 30 UNITS/500 ML BAG 125 UNITS IV CONT (20:14)
--- NOTE | 2021-05-19 22:09 | ADMGEN ---
This patient, Christine Jimenes, was admitted to OB 2nd Floor Room 291-00. Patient/family oriented to hospital policies and general routines including ID bracelet, bed and alarms, visiting hours, pain management, procedures, bathroom and other care routines, personal items, smoking policy, room service/diet, and visiting hours. Information on how to activate the Rapid Response Team has been discussed. Patient/Family are encouraged to report perceived risks to care and to ask questions if they do not understand what they are told or what they should do.
[2021-05-19] MEDS: IBUPROFEN 600 MG TABLET PO (23:25)
[2021-05-19] MEDS: HYDROcodone/acetaminophen (*CRX) 5-325 MG TABLET 1 TAB PO (23:26)
[2021-05-20] MEDS: HYDROcodone/acetaminophen (*CRX) 10-325 MG TABLET 1 TAB PO ×6 (04:04→20:57)
[2021-05-20 04:05] VITALS: BP 101/65; PULSE 62; RESP 16; TEMP 36.3
--- NOTE | 2021-05-20 06:53 | P.PNOB_ITS ---
OB - PN: Subj Subjective Date/time seen: 05/20/21 06:53 Tolerating regular diet and as yet has not ambulated. Johnson in place with clear urine. Pain is well controlled. OB - PN: Obj Data Labs CBC & Chem 7: 05/19/21 18:09 Labs: Laboratory Results - last 24 hr 05/19/21 05/19/21 18:09 18:09 WBC 9.1 RBC 4.12 L Hgb 13.0 Hct 38.3 MCV 93.0 MCH 31.6 MCHC 33.9 RDW 13.7 Plt Count 193 MPV 11.5 H Immature Gran % (Auto) 0.3 Neut % (Auto) 67.5 Lymph % (Auto) 25.4 [place] % (Auto) 5.8 Eos % (Auto) 0.8 Baso % (Auto) 0.2 Lymph # (Auto) 2.31 [place] # (Auto) 0.5 Eos # (Auto) 0.1 Baso # (Auto) 0.0 Abs Immat Gran (auto) 0.03 Absolute Neuts (auto) 6.1 Absolute Nucleated RBC 0.0 Nucleated RBC % 0.0 Blood Type A Positive Antibody Screen Negative OB - PN A/P Assessment and Plan (1) care following delivery: Code(s): Z39.2 - Encounter for routine follow-up Status: Acute Assessment and Plan: no concerns or issues at this point. Continue with routine /postoperative care. Time Spent With Patient Time: Total time spent is greater than 50% in coordination of care (as documented) at patient's floor/unit and/or counseling patient: Exam GI: Auscultation: normal bowel sounds
[2021-05-20 07:23] LABS: Rapid Plasma Reagin Non-Reactive (NonReactive)
[2021-05-20] MEDS: IBUPROFEN 600 MG TABLET PO ×2 (07:58→14:36)
[2021-05-20] MEDS: MULTIVIT/MIN/PREN/FOL AC/IRON TABLET 1 TAB PO (07:58)
[2021-05-20] MEDS: DOCUSATE SODIUM 100 MG CAPSULE PO ×2 (07:58→17:32)
[2021-05-20 08:00] VITALS: BP 109/68; PULSE 66; RESP 18; TEMP 36.8; O2SAT 97
[2021-05-20 08:14] LABS: Basophils Percent Auto 0.4 % (0.2-1.2); Eosinophils Absolute Auto 0.2 K/mm3 (0-0.3); Eosinophils Percent Auto 1.6 % (0-4.4); Hematocrit 33.6 % (37.0-47.0); Hemoglobin 11.5 g/dL (12.0-15.0); Immature Granulocyte Absolute 0.05 K/mm3 (0.00-0.031); Immature Granulocyte Percent A 0.5 % (0-0.5); Lymphocytes Absolute Auto 2.05 K/mm3 (0.9-3.2); Lymphocytes Percent Auto 20.9 % (18.3-44.2); Mean Corpuscular HGB Conc 34.2 g/dl (32-36); Mean Corpuscular Hemoglobin 32.4 pg (26-34); Mean Corpuscular Volume 94.6 fl (80-100); Monocytes Absolute Auto 0.7 K/mm3 (0.1-0.6); Monocytes Percent Auto 6.9 % (2.6-8.5); Neutrophils Absolute Auto 6.8 K/mm3 (1.3-6.7); Neutrophils Percent Auto 69.7 % (45.5-73.1); Platelet Count Result 148 k/mm3 (150-375); Red Blood Count 3.55 M/mm3 (4.2-5.4); Red Cell Distribution Width 13.7 % (11.5-14.5); White Blood Count 9.8 K/mm3 (4.5-10.0)
--- NOTE | 2021-05-20 10:55 | PC.NURSE ---
Mother called out for assist with feeding. Mother reports infant is sleepy and makes eager attempts to latch with good bursts of nursing. Mother is using a nipple shield for all feedings. Mother is supplementing EBM after each feeding followed with 15 minutes of pumping. Discussed establishing in the late may be more difficult due to their immaturity, may be less alert, have less stamina, and have greater difficulty with latch, suck, and swallow. Infant?s feeding may impact mother?s milk supply, pumping may need to be continued until milk supply is well established and infant is able to effectively breastfeed without supplementation. Infant is able to freely thrust tongue past gum ridge and flange both lips. Skin is intact on both nipples, no redness and bruising noted. Nipple care reviewed of lanolin after feedings, warm compresses as needed. Reviewed infant feeding cues, frequencies, duration of feedings, feeding elimination flow sheet, and signs of adequate intake. Demonstrated stimulation techniques to wake infant for feeding. Assisted with to breast. Reviewed positioning/alignment in cross cradle, holding breast in ?U? hold and guided asymmetrical latch on. Reviewed rational for each. Infant attempted to breast first without shield, infant was unable to draw nipple in deeply and maintain latch. With shield in place infant was able to latch correctly after several attempts. nursed eagerly, with steady draws for short burst and would release nipple eager to return to breast with bursts of nursing with long pausing noted. Mother has a good colostrum and swallowing is noted. Reviewed signs of a correct latch, effective nursing and suck swallow ratio. Infant was able to maintain latch without discomfort to mother. Suggested mother stimulate while feeding to increase stimulate, increase intake and to assist with maintaining deep latch. Demonstrated how to adjust latch more deeply while feeding if needed. Discussed the difference of effective vs ineffective feeding. Reviewed infant is latching with good burst of suckling, he is feeding consistently with adequate milk transfer at this time and continues to need supplement EBM/formula after . Feeding options discussed, Feeding Plan is for mother to put infant to breast each feeding for up to 15 minutes, then pace feed supplement 10-15 mls and pump for 10-15 minutes. Parents are comfortable with supplementation and pumping. If begins to nurse effectively with long draws and frequent swallowing noted, infant may decrease supplementation and discontinue pumping. Suggested mother have LC reinforcing steel machine operator observe feeding before discontinuing supplementation. Discussed increasing supplementation as infant requires to satisfactions. Reviewed paced feeding and suggested to stop when is satisfied, as long as infant is having required output. With increased supplementation infant may not want to feed for 4 hours. Mother will continue to pump on feeding schedule and will increase session to 20 minutes if pumping every 4 hours. Instructed mother to call out for RN assistance if she is unable to latch for feeding or she has discomfort with nursing. Instructed feeding should be initiated three hours from start of last feeding or if feeding cues are noted before. Mother voiced understanding of information shared.
--- NOTE | 2021-05-20 12:51 | WPDANLDPN2 ---
Anes-Prog Note L&D Date/Time: 05/20/21 12:51 Comfortable throughout: section Neuraxial method: spinal Epidural/Spinal procedure site: clean & non-tender Neuro status: Neuro function grossly intact. Cardiovascular status: normal Respiratory status: normal Airway patency: baseline Mental status: baseline Post-Op hydration status: normal Vital Signs: Last Vital Signs Temp 98.3 F 05/20/21 08:00 Pulse 66 05/20/21 08:00 Resp 18 05/20/21 08:00 BP 109/68 05/20/21 08:00 Pulse Ox 97 05/20/21 08:00 Pain score (VAS): 5 I/O: Intake & Output 05/19/21 05/20/21 05/20/21 23:59 07:59 15:59 Intake Total 2150 700 Output Total 1140 500 375 Balance 1010 -500 325 Post-procedural complaints: none Patient feedback: Patient satisfied with anesthetic care.
--- NOTE | 2021-05-20 12:51 | WPDANLDNPN2 ---
Anes-Prog Note L&D-Neuraxial Date/Time: 05/20/21 12:51 Neuraxial medications: intrathecal PF morphine Opiod-related complaints: none Patient feedback: Patient satisfied with post-operative pain management.
[2021-05-20 13:01] VITALS: BP 112/65; PULSE 68; RESP 18; TEMP 36.3; O2SAT 97
[2021-05-20 16:35] VITALS: BP 97/65; PULSE 78; RESP 16; TEMP 36.1
[2021-05-20 19:30] VITALS: BP 95/58; PULSE 91; RESP 16; TEMP 36.6
[2021-05-20] MEDS: SERTRALINE HCL 50 MG TABLET 200 MG PO (20:57)
[2021-05-21] MEDS: IBUPROFEN 600 MG TABLET PO ×2 (04:05→13:14)
[2021-05-21] MEDS: HYDROcodone/acetaminophen (*CRX) 10-325 MG TABLET 1 TAB PO ×3 (04:05→13:15)
--- NOTE | 2021-05-21 07:35 | PM.OBDSVD ---
DS: Admitting Diagnosis Discharge Date 05/21/2021 Admitting Diagnosis DS: Discharge Diagnosis Discharge Diagnosis (1) care following delivery: Code(s): Z39.2 - Encounter for routine follow-up Status: Acute OB - DS: Summary OB Procedures : None OB Procedures Intrapartum: OB Procedures: : None Peripartum Data Procedures: Procedures Operation Date: 05/31/21 12:00 Actual Procedure Side Surgeon p Section Bilateral Lev Perdomo MD Time Spent with Patient Time attestation: Total time spent providing and/or coordinating discharge services: DS: Data Data Completed and Pending Labs on day of discharge: Labs from last 24 hours 05/20/21 08:03 WBC 9.8 RBC 3.55 L Hgb 11.5 L Hct 33.6 L MCV 94.6 MCH 32.4 MCHC 34.2 RDW 13.7 Plt Count 148 L MPV 11.0 H Immature Gran % (Auto) 0.5 Neut % (Auto) 69.7 Lymph % (Auto) 20.9 [place] % (Auto) 6.9 Eos % (Auto) 1.6 Baso % (Auto) 0.4 Lymph # (Auto) 2.05 [place] # (Auto) 0.7 H Eos # (Auto) 0.2 Baso # (Auto) 0.0 Abs Immat Gran (auto) 0.05 H Absolute Neuts (auto) 6.8 H Absolute Nucleated RBC 0.0 Nucleated RBC % 0.0 Discharge Plan Discharge Discharging Clinician: Lev Perdomo Patient Disposition: Home, Self-Care Activity: as tolerated Diet: as tolerated Wound Care Instructions: incision open to air Discharge Instructions: remove farrah/place steristrips at postop hospital visit. Patient Instructions: Antibiotic Form Stand Alone Forms: General Discharge Information Follow-up/Referrals: Lev Perdomo MD [Physician] - 3 Weeks Discharge Medications: New hydrocodone-acetaminophen 5-325 mg Tablet 1 tablet PO Q3H PRN (Reason: Moderate Pain (4-6)) Qty: 30 RF: 0 ibuprofen 600 mg Tablet 600 mg PO Q6H PRN (Reason: Cramping) Qty: 30 RF: 0 Continued prenat.vits,anju,gxr-[id number]-efezq Tablet 1 tablet PO DAILY RF: 0 sertraline 100 mg Tablet 200 mg PO HS RF: 0 risperidone 0.25 mg Tablet 0.25 mg BID PRN (Reason: anxiety) RF: 0 Date of admission: 05/19/21 13:58 Primary Care Provider: Juan,Denisa Lopez Admitting Provider: Lev Perdomo Attending physician on admission: Lev Perdomo Condition: Stable
[2021-05-21] MEDS: DOCUSATE SODIUM 100 MG CAPSULE PO (07:52)
[2021-05-21] MEDS: MULTIVIT/MIN/PREN/FOL AC/IRON TABLET 1 TAB PO (07:52)
[2021-05-21 08:10] VITALS: BP 111/68; PULSE 68; RESP 16; TEMP 36.4; O2SAT 99
--- NOTE | 2021-05-21 14:00 | PC.NURSE ---
Patient states she will view the discharge video Mother & Baby Care, The First Two Weeks online. Patient was given the opportunity and encouraged to ask questions. Patient verbalized understanding of information shared and has been given the mother/baby guide for home reference.
--- NOTE | 2021-05-21 14:53 | PC.NURSE ---
Staple remover and steri strips sent to follow up nurse. Talent to be removed Monday at follow up appointment.
[2021-05-24 11:07] VITALS: BP 117/63; PULSE 63; RESP 20; TEMP 36.6
== END 2021-05-21 14:53 | disposition home or self-care (01) | DRG 788 ==
LOC: ANHLDR 18:10 → ANHOB2 22:45
PROVIDERS: Admitting Provider Obstetrics & Gynecology; PCP Nurse Practitioner Family; Visit Provider Obstetrics & Gynecology
DX: O82 Encounter for cesarean delivery without indication (principal); Z87.891 Personal history of nicotine dependence; Z3A.37 37 weeks gestation of pregnancy; Z37.0 Single live birth; Z23 Encounter for immunization
CPT/HCPCS: 36415; 85025; 86592; 86850; 86900; 86901; 90471; 90653; A9270; G0008; J0131; J0690; J2274; J2370; J2405; J2590; J7120

== ENCOUNTER 2021-05-26 16:23 | Emergency (ER) | payer BC, SELFPAY ==
[2021-05-26] VITALS (9 sets, daily range): BP systolic 114–129; BP diastolic 77–98; PULSE 67–109; RESP 11–18; TEMP 36.2–36.6; O2SAT 97–100
--- NOTE | ~2021-05-26 | XR_ITS ---
EXAMINATION: XR chest 2V DATE: 05/26/2021 16:52 INDICATION: Left-sided chest pain TECHNIQUE: PA and lateral views of the chest are obtained. COMPARISON: 12/23/2020 FINDINGS: The lungs are free of acute opacities. There is no pleural effusion or pneumothorax. The ca rdiomediastinal silhouette is normal. The visualized bones and soft tissues are unremarkable. IMPRESSION: 1. No acute cardiopulmonary abnormality. Reviewed, dictated and finalized at location A. D INVESTIGATOR
--- NOTE | ~2021-05-26 | CT_ITS ---
EXAMINATION: CTA chest PE protocol EXAM DATE: 05/26/2021 22:11 INDICATION: Left-sided chest pain, postop, rule out pulmonary embolism. TECHNIQUE: Spiral CTA of the chest (pulmonary arteries) was performed with 100 cc Omnipaque 350 intr avenous contrast injection. Images were acquired during the pulmonary arterial phase. Coronal maxi mum intensity projection 3D-reconstructions were created by the technologist on dedicated workstation . Axial, coronal and sagittal reformatted images were reviewed. The dose-length product (DLP) for t his examination was 163.30 mGy-cm. The exposure was tailored according to patient size (auto mA exp osure control), and iterative reconstruction (ASIR) was used as additional dose reduction technique. There is no prior study for comparison. FINDINGS: Pulmonary arteries are well opacified and without intraluminal filling defects. No thora cic aortic dissection. The lungs are clear. There are no pleural or pericardial effusions. Trach eobronchial tree is patent. There is no mediastinal, hilar or axillary lymphadenopathy. There is no pneumothorax. Heart normal in size. No evidence of coronary arterial calcification. Upper abd omen is unremarkable. There is thoracic spondylosis without osteoblastic or osteolytic lesions iden tified. IMPRESSION: No pulmonary emboli or other acute cardiopulmonary findings. Reviewed, dictated and finalized at location A. TIC SURGERY NURSE
--- NOTE | 2021-05-26 16:38 | ECG_ITS ---
Measurements Intervals [place] Rate: 101 P: 70 AK: 117 QRS: 74 QRSD: 86 T: 34 QT: 303 QTc: 394 Interpretive Statements SINUS TACHYCARDIA WITH SHORT AK INTERVAL MINIMAL Q WAVES- INF/LAT LEADS BASELINE ARTIFACT- I, II, III, AVR, AVL, AVF, V1-V6 BORDERLINE ECG Electronically Signed On 05-26-2021 20:10:41 GRINDER DRESSER by Oleksandr Ortiz D.O.
[2021-05-26 17:23] LABS: Basophils Percent Auto 0.4 % (0.2-1.2); Eosinophils Absolute Auto 0.4 K/mm3 (0-0.3); Eosinophils Percent Auto 4.2 % (0-4.4); Hematocrit 40.8 % (37.0-47.0); Hemoglobin 13.8 g/dL (12.0-15.0); Immature Granulocyte Absolute 0.02 K/mm3 (0.00-0.031); Immature Granulocyte Percent A 0.2 % (0-0.5); Lymphocytes Absolute Auto 3.01 K/mm3 (0.9-3.2); Lymphocytes Percent Auto 32.3 % (18.3-44.2); Mean Corpuscular HGB Conc 33.8 g/dl (32-36); Mean Corpuscular Hemoglobin 31.8 pg (26-34); Monocytes Absolute Auto 0.5 K/mm3 (0.1-0.6); Neutrophils Absolute Auto 5.4 K/mm3 (1.3-6.7); Neutrophils Percent Auto 57.9 % (45.5-73.1); Platelet Count Result 268 k/mm3 (150-375); Red Blood Count 4.34 M/mm3 (4.2-5.4); Red Cell Distribution Width 13.6 % (11.5-14.5); White Blood Count 9.3 K/mm3 (4.5-10.0)
[2021-05-26 17:41] LABS: Alanine Aminotransferase 27 U/L (4-35); Alkaline Phosphatase 158 U/L (38-126); Anion Gap 7 mmol/L (8-16); Aspartate Amino Transferase 26 U/L (14-36); Bilirubin,Total 0.4 mg/dL (0.2-1.3); Blood Urea Nitrogen 11 mg/dL (7-17); Calcium 9.3 mg/dL (8.4-10.2); Carbon Dioxide 23 mmol/L (22-30); Chloride 106 mmol/L (98-107); Estimated CRCL calculation 141 ml/min; Estimated Glomerular Filt Rate > 60; Glucose 105 mg/dL (65-110); Lipase 59 U/L (23-300); Potassium 3.8 mmol/L (3.4-5.0); Sodium 136 mmol/L (137-145)
[2021-05-26 17:47] LABS: INR 0.9
[2021-05-26 17:48] LABS: Partial Thromboplastin Time 24.4 SECONDS (22.3-36.8)
[2021-05-26 17:52] LABS: Troponin I < 0.012 ng/mL (0.000-0.034)
--- NOTE | 2021-05-26 19:52 | ECG_ITS ---
Measurements Intervals [place] Rate: 88 P: 49 NC: 113 QRS: 68 QRSD: 85 T: 49 QT: 319 QTc: 387 Interpretive Statements SINUS RHYTHM WITH SHORT NC INTERVAL MINIMAL Q WAVES- INF/LAT LEADS BASELINE ARTIFACT- II, III BORDERLINE ECG Electronically Signed On 05-26-2021 20:17:21 CAD DESIGNER DRAFTER by Oleksandr Ortiz D.O.
[2021-05-26 20:38] LABS: Troponin I < 0.012 ng/mL (0.000-0.034)
--- NOTE | 2021-05-26 21:13 | ED.CHESTPAIN ---
HPI - Chest Pain General Chief Complaint: Chest Pain Stated Complaint: CP-had c section on monday Time Seen by Provider: 05/26/21 21:03 Source: patient, RN notes reviewed and old records reviewed Mode of arrival: ambulatory Limitations: no limitations History of Present Illness HPI narrative: This is a 30 year old female s/p c section 1 week ago who presents for evaluation of left sternal chest pain. She developed pain earlier today and her pain has been constant. She describes pain as dull and it worse with breathing. She has been taking [place] and ibuprofen for her c section pain, and she states this has not given any relief. She also reports mild shortness of breath. She denies cough, fever, chills, leg swelling calf pain. She also denies history of DVT/PE. Related Data Home Medications Medication Instructions Recorded Confirmed prenat.vits,anju,kxv-zxto-gryzn 1 tablet PO DAILY 10/15/20 05/16/21 risperidone 0.25 mg BID PRN 03/06/21 05/16/21 sertraline 200 mg PO HS 03/06/21 05/16/21 Allergies Allergy/AdvReac Type Severity Reaction Status Date / Time cephalexin Allergy Mild Rash Verified 02/08/21 12:35 prochlorperazine AdvReac Intermediate Anxiety Verified 02/08/21 12:35 [From Compazine] metoclopramide [From Reglan] AdvReac Anxiety Verified 02/08/21 12:35 Review of Systems Review of Systems: All systems reviewed & are unremarkable except as noted in HPI and below PMFSH Past Medical History Medical History ADH disorder ADHD Brain tumor Depression Generalized anxiety disorder Generalized hyperhidrosis Glioma tectorial gliomahe Headache, migraine Hydrocephalus Hyperthyroidism Obesity (BMI 30-39.9) PIH ( induced hypertension) Surgical History Surgical History History of brain surgery 2011 History of cholecystectomy History of vaginal surgery complete vaginal reconstruction after vaginal Family History Family History Father Family history of elevated blood lipids Diabetes mellitus Depression Mother Melanoma Social History Social History Smoking packs per day: 0.75 Smoking cigarettes per day: 15.0 Years smoked: 10 Smoking pack-years: 7.50 Smoking status: Former smoker Alcohol intake: never Substance use: never Gender identity (if verbalized by the patient): Female Spiritual care concerns: No Exam Const: General: no acute distress and alert Orientation/consciousness: patient oriented x3 Eyes: EOM: EOMs intact bilaterally Neck: Neck: normal visual inspection Chest: Chest palpation & inspection: normal inspection of the chest Resp: Effort & Inspection: normal respiratory effort and no retractions Auscultation: clear to auscultation bilaterally Cardio: Rate: regular rate Rhythm: regular rhythm Heart sounds: no murmurs GI: GI Palp: Yes Soft to palpation, No Tenderness to palpation present (GI) and No Guarding due to palpation present (GI) Auscultation: normal bowel sounds Other: low transverse c section incision- incision is intact , steri strips in place, no erythema or drainage Skin: General skin exam: normal color Rashes: no rashes Neuro: General: patient oriented x3, moves all extremities and CN's II-XI intact bilaterally Extrem: General: normal to inspection Psych: Mental Status: mental status grossly normal Affect: normal affect Course Reevaluation(s) Reevaluation #1: I Discussed with patient labs and CT are unremarkable. She will continue to take her prescribed ibuprofen and hydrocodone for pain. I discussed antiinflammatory may help pain more . She has been ruled out PE, pneumonia, AL. Pain is pleuritic in nature. She states her pain has improved. Date: 05/26/21 Time: 22:26 Vital Signs Vi
[2021-05-26] MEDS: HYDROmorphone HCL INJ (*CRX) 1 MG/ML SYR 0.5 MG IV PUSH (21:41)
[2021-05-26] MEDS: ONDANSETRON INJ 4 MG/2 ML VIAL IV PUSH (21:43)
== END 2021-05-26 22:54 | disposition home or self-care (01) ==
PROVIDERS: Emergency Medicine; Emergency Provider General Practice; PCP Nurse Practitioner Family
DX: R07.89 Other chest pain (principal); R07.81 Pleurodynia; Z87.891 Personal history of nicotine dependence
CPT/HCPCS: 36415; 71046; 71275; 80053; 83690; 84484; 85025; 85610; 85730; 93005; 96374; 96375; 99284; J1170; J2405; Q9967

== ENCOUNTER 2021-06-07 19:25 | Emergency (ER) | payer BC, SELFPAY ==
[2021-06-07 19:36] VITALS: BP 122/73; PULSE 81; RESP 16; TEMP 36.4; O2SAT 99
--- NOTE | 2021-06-07 20:55 | PC.NURSE ---
Pt to intake desk and states I am going to go ahead and go, I told myself I would only stay until 9 o'clock. I have a at home. Pt ambulated out of ED w/ steady gait.
== END 2021-06-08 04:14 | disposition left against medical advice (07) ==
PROVIDERS: PCP Nurse Practitioner Family
DX: R10.9 Unspecified abdominal pain (principal)
CPT/HCPCS: 99199

== ENCOUNTER 2021-06-08 10:20 | Emergency (ER) | payer BC, SELFPAY ==
--- NOTE | ~2021-06-08 | US_ITS ---
EXAMINATION: US pelvic complete w TV DATE: 06/08/2021 13:53 INDICATION: Right-sided pelvic pain. Status post recent 3 weeks ago. Comparison:No prior studies for comparison. TECHNIQUE: Multiple transabdominal and endovaginal sonographic images of the pelvis performed. FINDINGS: The uterus measures 9.1 x 5.3 cm greatest longitudinal dimension. The endometrial complex m easures 1.6 cm. Endometrium is thickened and heterogeneous with internal debris, suspicious for retai carlos products of conception. The right ovary measures 2.4 x 1.7 x 1.5 cm and the left ovary measures 2.7 x 1.3 x 1.3 cm. There ar e small follicles in each ovary. Normal doppler signal in both ovaries. There is no free fluid in the pelvis. There are no abnormal masses seen on either side. IMPRESSION: 1. Complex heterogeneous endometrium measuring 1.6 cm, suspicious for retained products of conception . Reviewed, dictated and finalized at location A. TRONIC SCALE SUBASSEMBLER IMPRESSION: 1. Complex heterogeneous endometrium measuring 1.6 cm, suspicious for retained products of conception.
--- NOTE | ~2021-06-08 | CT_ITS ---
EXAMINATION: CT abdomen pelvis wo con DATE: 06/08/2021 12:24 INDICATION: Right lower quadrant abdominal pain. Right flank pain. TECHNIQUE: Computed tomography (CT) of the abdomen and pelvis was performed without intravenous contr ast. Automated exposure control and iterative reconstruction technique were employed. The dose-length product was 343.62 mGy-cm. COMPARISON: CT abdomen and pelvis 09/13/2019 FINDINGS: The visualized portions of the lung bases are clear without pneumonia or pleural effusion. The heart size is normal. No pericardial effusion. The liver is normal. There are changes of cholecys tectomy. The spleen, pancreas, adrenal glands, and kidneys are normal. There is no urolithiasis. Ther e are no dilated loops of bowel. The appendix is normal. There are no pathologically enlarged lymph n odes. There is no free intraperitoneal fluid. There are expected changes of recent section. The bones are unremarkable. IMPRESSION: 1. No etiology for the patient's symptoms. Reviewed, dictated and finalized at location A. D INSTALLATION WORKER
[2021-06-08 10:22] VITALS: BP 120/79; PULSE 107; RESP 16; TEMP 36.1; O2SAT 100
[2021-06-08 11:46] VITALS: BP 108/87; PULSE 97; RESP 20; O2SAT 99
[2021-06-08 11:52] LABS: Alanine Aminotransferase 19 U/L (4-35); Albumin Level 4.4 g/dL (3.5-5.1); Alkaline Phosphatase 113 U/L (38-126); Anion Gap 12 mmol/L (8-16); Aspartate Amino Transferase 25 U/L (14-36); Bilirubin,Total 0.5 mg/dL (0.2-1.3); Blood Urea Nitrogen 15 mg/dL (7-17); Calcium 9.4 mg/dL (8.4-10.2); Carbon Dioxide 23 mmol/L (22-30); Chloride 106 mmol/L (98-107); Estimated CRCL calculation 101 ml/min; Estimated Glomerular Filt Rate > 60; Glucose 97 mg/dL (65-110); Lipase 104 U/L (23-300); Sodium 141 mmol/L (137-145)
[2021-06-08 11:56] LABS: Basophils Percent Auto 0.4 % (0.2-1.2); Eosinophils Absolute Auto 0.4 K/mm3 (0-0.3); Eosinophils Percent Auto 4.1 % (0-4.4); Hematocrit 44.4 % (37.0-47.0); Hemoglobin 14.2 g/dL (12.0-15.0); Immature Granulocyte Absolute 0.02 K/mm3 (0.00-0.031); Immature Granulocyte Percent A 0.2 % (0-0.5); Lymphocytes Absolute Auto 2.57 K/mm3 (0.9-3.2); Lymphocytes Percent Auto 27.6 % (18.3-44.2); Mean Corpuscular Hemoglobin 30.8 pg (26-34); Mean Corpuscular Volume 96.3 fl (80-100); Mean Platelet Volume 10.5 fl (7.4-10.4); Monocytes Absolute Auto 0.5 K/mm3 (0.1-0.6); Monocytes Percent Auto 5.4 % (2.6-8.5); Neutrophils Absolute Auto 5.8 K/mm3 (1.3-6.7); Neutrophils Percent Auto 62.3 % (45.5-73.1); Platelet Count Result 288 k/mm3 (150-375); Red Blood Count 4.61 M/mm3 (4.2-5.4); Red Cell Distribution Width 13.5 % (11.5-14.5); White Blood Count 9.3 K/mm3 (4.5-10.0)
[2021-06-08] MEDS: KETOROLAC 30 MG/ML VIAL (*BKC) IV PUSH (11:56)
[2021-06-08] MEDS: SODIUM CHLORIDE 0.9% IV 1,000 ML 999 ML IV CONT (11:56)
[2021-06-08] MEDS: ONDANSETRON INJ 4 MG/2 ML VIAL IV PUSH ×2 (11:56→13:06)
[2021-06-08 12:05] LABS: Add Urine Microscopic? YES; Appearance Urine Clear (Clear); Bilirubin Urine Negative (Negative); Blood Urine 3+ (Negative); Color Urine Yellow (Yellow); Glucose Urine UA Negative (Negative); Ketones Urine Negative (Negative); Leukocyte Esterase Ur Negative LEU/UL (Negative); Mucus Urine Rare /lpf; Nitrate Urine Negative (Negative); Protein Urine Negative (Negative); RBC Urine 21-50 /hpf (0-2); Specific Grav Ur 1.019 (1.001-1.035); Squamous Epithelial Cell Urine Occasional /hpf (Few); Urobilinogen Urine Negative mg/dL (<2.0); WBC Urine 0-3 /hpf
--- NOTE | 2021-06-08 12:31 | ED.GENADULT ---
HPI - General Adult General Chief complaint: Abdominal Pain Stated complaint: Abdominal pain. Time Seen by Provider: 06/08/21 11:13 History of Present Illness HPI narrative: Patient is a 30-year-old female who presents ER with right lower quadrant pain. Ongoing for last 2 days. Began in her periumbilical region. Radiates to her right flank. Similar to previous kidney stone she has had in the past. Endorses urinary frequency but no dysuria or hematuria. Denies fevers or chills or sweats. She is not on her period. She recently had a 3 weeks ago. No fevers or chills or sweats. She has had mild nausea but no vomiting. Related Data Home Medications Medication Instructions Recorded Confirmed prenat.vits,anju,stu-majh-ktrce 1 tablet PO DAILY 10/15/20 05/16/21 risperidone 0.25 mg BID PRN 03/06/21 05/16/21 sertraline 200 mg PO HS 03/06/21 05/16/21 Allergies Allergy/AdvReac Type Severity Reaction Status Date / Time cephalexin Allergy Mild Rash Verified 06/08/21 11:22 prochlorperazine AdvReac Intermediate Anxiety Verified 06/08/21 11:22 [From Compazine] metoclopramide [From Reglan] AdvReac Anxiety Verified 06/08/21 11:22 Review of Systems Review of Systems: All systems reviewed & are unremarkable except as noted in HPI and below Constitutional: Constitutional: Denies chills, Denies fever(s) and Denies weakness Cardiovascular: Cardiovascular: Denies chest pain, Denies rapid heart rate and Denies radiating jaw, neck or arm pain Respiratory: Respiratory: Denies cough and Denies dyspnea Gastrointestinal: Gastrointestinal: Reports abdominal pain, Denies diarrhea, Reports nausea and Denies vomiting Genitourinary: Genitourinary: Denies abnormal vaginal bleeding, Denies hematuria, Reports nocturia, Denies dysuria, Reports flank pain and Denies vaginal discharge PMFSH Past Medical History Medical History ADH disorder ADHD Brain tumor Depression Generalized anxiety disorder Generalized hyperhidrosis Glioma tectorial gliomahe Headache, migraine Hydrocephalus Hyperthyroidism Obesity (BMI 30-39.9) PIH ( induced hypertension) Surgical History Surgical History History of brain surgery 2011 History of cholecystectomy History of vaginal surgery complete vaginal reconstruction after vaginal Family History Family History Father Family history of elevated blood lipids Diabetes mellitus Depression Mother Melanoma Social History Social History Smoking packs per day: 0.75 Smoking cigarettes per day: 15.0 Years smoked: 10 Smoking pack-years: 7.50 Smoking status: Former smoker Alcohol intake: never Substance use: never Gender identity (if verbalized by the patient): Female Spiritual care concerns: No Exam Narrative: GENERAL: Well-appearing, well-nourished, and in no acute distress. HEAD: Normocephalic, atraumatic. CHEST: Clear to auscultation. No respiratory distress. HEART: Regular rate and rhythm. Normal peripheral pulses. ABDOMEN: Soft, nontender, nondistended. Well-healing section scar. Tape still in place but no surrounding cellulitis. Back: Mild right CVA tenderness without tenderness on the left side. EXTREMITIES: Normal range of motion. No edema. SKIN: Warm, dry, no rash. NEURO: Alert and oriented x3. PSYCH: Normal mood and affect. Course Course Emergency Course: Discussed case with Dr. Perdomo. He would like the patient follow-up tomorrow in his clinic. Patient has been educated about the findings on her imaging and lab work. She is verbalized understanding. She has ibuprofen 600 mg tablets at home that she will take for her discomfort we will give her a small supply of [place] for any breakthrough pain she may be having. E
[2021-06-08] MEDS: MORPHINE SULFATE (*CRX) 4 MG/ML INJ IV PUSH (13:06)
[2021-06-08 14:08] LABS: Beta HCG Quantitative 17.58 mIU/ML
[2021-06-08 15:45] VITALS: BP 118/72; PULSE 72; RESP 16; O2SAT 99
== END 2021-06-08 15:40 | disposition home or self-care (01) ==
PROVIDERS: Emergency Provider Emergency Medicine; PCP Nurse Practitioner Family
DX: O73.1 Retained portions of placenta and membranes, without hemorrhage (principal); Z87.442 Personal history of urinary calculi; Z87.891 Personal history of nicotine dependence; O99.345 Other mental disorders complicating the puerperium; F90.9 Attention-deficit hyperactivity disorder, unspecified type; F41.1 Generalized anxiety disorder; F32.A Depression, unspecified; O99.285 Endocrine, nutritional and metabolic diseases complicating the puerperium; E05.90 Thyrotoxicosis, unspecified without thyrotoxic crisis or storm; O99.215 Obesity complicating the puerperium; E66.9 Obesity, unspecified
CPT/HCPCS: 36415; 74176; 76830; 76856; 80053; 81001; 81025; 83690; 84702; 85025; 96361; 96374; 96375; 96376; 99284; J1885; J2270; J2405; J7030

== ENCOUNTER 2021-06-13 13:40 | Emergency (ER) | payer BC, SELFPAY ==
[2021-06-13 13:49] VITALS: BP 108/79; PULSE 111; RESP 18; TEMP 36.4; O2SAT 99
--- NOTE | 2021-06-13 15:51 | PC.NURSE ---
pt to intake desk and states she is leaving. ambulated to the exit with no difficulty
== END 2021-06-14 05:12 | disposition left against medical advice (07) ==
LOC: ANHED 15:54
DX: N93.9 Abnormal uterine and vaginal bleeding, unspecified (principal)
CPT/HCPCS: 99199

== ENCOUNTER 2021-08-14 22:13 | Observation (INO) | payer BC, SELFPAY ==
--- NOTE | ~2021-08-14 | US_ITS ---
EXAMINATION: US pelvic complete w TV EXAM DATE: 08/15/2021 02:57 INDICATION: left ovarian cyst with severe pain. TECHNIQUE: Pelvic transabdominal and transvaginal sonogram was performed. There are multiple graysca le and Doppler images available for interpretation. Comparison is made to prior examination from 05/20. FINDINGS: Uterus measures 8.3 x 3.3 x 5.2 cm, and is morphologically normal. Endometrial stripe dawit sures 3 mm, within normal limits. There is small free pelvic fluid. Right adnexa: The ovary measures 3.4 x 2.1 x 1.6 cm and is morphologically normal. Ovarian vascular f low confirmed. Left adnexa: The ovary measures 4.3 x 4.0 x 4.3 cm, with a complex cystic lesion measuring 3.9 cm. Th is was not present in May. Ovarian vascular flow confirmed. IMPRESSION: Complex cystic left ovarian lesion most likely hemorrhagic cyst ; recommend 6 week follow -up ultrasound to confirm resolution. Reviewed, dictated and finalized at location A. TROMECHANICAL EQUIPMENT ASSEMBLER IMPRESSION: Complex cystic left ovarian lesion most likely hemorrhagic cyst ; r ecommend 6 week follow-up ultrasound to confirm resolution.
--- NOTE | ~2021-08-14 | XR_ITS ---
EXAMINATION: XR abdomen/kub 1V EXAM DATE: 08/14/2021 23:18 INDICATION: Left flank pain, possible kidney stone . TECHNIQUE: Frontal projection(s) of the abdomen for interpretation. Correlation is made to CT abdomen pelvis same date. FINDINGS: There are cholecystectomy clips. There is expected amount of colonic stool and gas. No small bowel dilation, nonobstructive bowel gas pattern. There are no suspicious calcifications iden tified. There is no organomegaly suspected. The bones are unremarkable. Lung bases are clear. IMPRESSION: Unremarkable abdomen x-ray exam. Reviewed, dictated and finalized at location A. OW CLERK
--- NOTE | ~2021-08-14 | CT_ITS ---
EXAMINATION: CT abdomen pelvis wo con EXAM DATE: 08/15/2021 01:04 INDICATION: Left lower abdominal pain radiating to back . History kidney stones. TECHNIQUE: Spiral CT of the abdomen and pelvis was performed without contrast. Axial, coronal and sag ittal images were reviewed. The dose-length product (DLP) for this examination was 306.00 mGy-cm. T he exposure was tailored according to patient size (auto mA exposure control), and iterative reconstr uction (ASIR) was used as additional dose reduction technique. Comparison is made to prior examinatio n from 08/09/2020. FINDINGS: There is no nephrolithiasis or hydronephrosis. The uterus is unremarkable. There is a 4.6 cm left adnexal cyst probably physiologic or hemorrhagic cyst. The bladder is unremarkable. The li josse, spleen, adrenal glands and pancreas are unremarkable. There are cholecystectomy clips. There i s no retroperitoneal or pelvic lymphadenopathy. The appendix is normal. The stomach and small bowel are unremarkable. There is expected amount of c olonic stool. No free intraperitoneal gas. The heart is normal in size. There are no pericardial or pleural effusions. The lung bases are unremarkable. There are no osteoblastic or osteolytic les ions identified. IMPRESSION: 1. No nephrolithiasis, hydronephrosis or acute intra-abdominal findings. 2. Left ovarian cyst probably physiologic or hemorrhagic. Reviewed, dictated and finalized at location A. LIANCE AIDE
[2021-08-14 22:15] VITALS: BP 115/71; PULSE 98; RESP 15; TEMP 36.6; O2SAT 99
[2021-08-14 22:44] LABS: Basophils Percent Auto 0.4 % (0.2-1.2); Eosinophils Absolute Auto 0.2 K/mm3 (0-0.3); Eosinophils Percent Auto 2.7 % (0-4.4); Hematocrit 42.2 % (37.0-47.0); Hemoglobin 13.6 g/dL (12.0-15.0); Immature Granulocyte Absolute 0.03 K/mm3 (0.00-0.031); Immature Granulocyte Percent A 0.4 % (0-0.5); Lymphocytes Absolute Auto 3.16 K/mm3 (0.9-3.2); Lymphocytes Percent Auto 38.9 % (18.3-44.2); Mean Corpuscular HGB Conc 32.2 g/dl (32-36); Mean Corpuscular Hemoglobin 31.1 pg (26-34); Mean Corpuscular Volume 96.3 fl (80-100); Mean Platelet Volume 10.1 fl (7.4-10.4); Monocytes Absolute Auto 0.5 K/mm3 (0.1-0.6); Monocytes Percent Auto 6.4 % (2.6-8.5); Neutrophils Absolute Auto 4.2 K/mm3 (1.3-6.7); Neutrophils Percent Auto 51.2 % (45.5-73.1); Platelet Count Result 273 k/mm3 (150-375); Red Blood Count 4.38 M/mm3 (4.2-5.4); Red Cell Distribution Width 13.4 % (11.5-14.5); White Blood Count 8.1 K/mm3 (4.5-10.0)
[2021-08-14 22:48] LABS: Add Urine Microscopic? YES; Appearance Urine Cloudy (Clear); Bilirubin Urine 2+ (Negative); Blood Urine Negative (Negative); Color Urine Yellow (Yellow); Glucose Urine UA Negative (Negative); Ketones Urine Negative (Negative); Leukocyte Esterase Ur 2+ LEU/UL (Negative); Mucus Urine Heavy /lpf; Nitrate Urine Negative (Negative); Protein Urine 1+ mg/dL (Negative); Squamous Epithelial Cell Urine Many /hpf (Few); WBC Urine 31-50 /hpf
[2021-08-14 22:51] LABS: Alanine Aminotransferase 23 U/L (4-35); Albumin Level 4.9 g/dL (3.5-5.1); Alkaline Phosphatase 68 U/L (38-126); Anion Gap 7 mmol/L (8-16); Aspartate Amino Transferase 30 U/L (14-36); Bilirubin,Total 0.4 mg/dL (0.2-1.3); Blood Urea Nitrogen 19 mg/dL (7-17); Calcium 9.3 mg/dL (8.4-10.2); Carbon Dioxide 29 mmol/L (22-30); Chloride 104 mmol/L (98-107); Estimated CRCL calculation 81 ml/min; Estimated Glomerular Filt Rate > 60; Glucose 100 mg/dL (65-110); Lipase 179 U/L (23-300); Sodium 140 mmol/L (137-145)
[2021-08-14 22:52] LABS: Specific Grav Ur 1.039 (1.001-1.035)
[2021-08-14 23:29] VITALS: BP 110/78; O2SAT 96
[2021-08-14 23:30] VITALS: O2SAT 98
[2021-08-14] MEDS: ONDANSETRON INJ 4 MG/2 ML VIAL IV PUSH (23:30)
[2021-08-14 23:31] VITALS: BP 110/73; O2SAT 98
[2021-08-14] MEDS: MORPHINE SULFATE (*CRX) 4 MG/ML INJ 6 MG IV PUSH (23:31)
[2021-08-14] MEDS: SODIUM CHLORIDE 0.9% IV 1,000 ML 999 ML IV CONT (23:32)
[2021-08-14 23:45] VITALS: O2SAT 99
[2021-08-14 23:46] VITALS: BP 118/82; O2SAT 99
[2021-08-15] VITALS (10 sets, daily range): BP systolic 111–126; BP diastolic 69–84; PULSE 70–90; RESP 14–20; TEMP 36.4–36.6; O2SAT 98–100
--- NOTE | 2021-08-15 00:57 | ED.ABDPAIN ---
HPI - Abdominal Pain General Chief Complaint: Abdominal Pain Stated Complaint: abd pain Time Seen by Provider: 08/14/21 22:20 Source: patient, RN notes reviewed and old records reviewed Mode of arrival: ambulatory Limitations: no limitations History of Present Illness HPI narrative: This is a 30 year old female who presents for evaluation of left lower abdominal pain. She developed lower abdominal pain 4-5 days ago. This pain has been constant ache and she was evaluated by her PCP. She has been taking toradol for her pain and she has CT abdomen pelvis next week to evaluated for ovarian cyst. She came to ER because 2 hours ago she developed left lower abdominal pain that was not relieved with toradol. She has nausea but denies vomiting. She states she was placed on antibiotics for possible UTI because she had blood in her urine. She denies dysuria or increased urinary urgency. Related Data Home Medications Medication Instructions Recorded Confirmed risperidone 0.25 mg BID PRN 03/06/21 08/04/21 venlafaxine 37.5 mg 75 mg PO DAILY cap 06/29/21 08/04/21 capsule,extended release 24 hr ketorolac [Toradol] 10 mg PO QID PRN 08/14/21 Allergies Allergy/AdvReac Type Severity Reaction Status Date / Time cephalexin Allergy Mild Rash Verified 08/14/21 23:27 prochlorperazine AdvReac Intermediate Anxiety Verified 08/14/21 23:27 [From Compazine] metoclopramide [From Reglan] AdvReac Anxiety Verified 08/14/21 23:27 Review of Systems Review of Systems: All systems reviewed & are unremarkable except as noted in HPI and below PMFSH Past Medical History Medical History ADH disorder ADHD Brain tumor Depression Generalized anxiety disorder Generalized hyperhidrosis Glioma tectorial gliomahe Headache, migraine Hydrocephalus Hyperthyroidism Obesity (BMI 30-39.9) PIH ( induced hypertension) Surgical History Surgical History Delivery by section (05/19/21) primary c/s History of brain surgery 2011 History of cholecystectomy History of gynecological procedure (06/10/21) retained products of conception History of vaginal surgery complete vaginal reconstruction after vaginal Family History Family History Father Family history of elevated blood lipids Diabetes mellitus Depression Mother Melanoma Social History Social History Smoking packs per day: 0.75 Smoking cigarettes per day: 15.0 Years smoked: 10 Smoking pack-years: 7.50 Smoking status: Former smoker Alcohol intake: never Substance use: never Gender identity (if verbalized by the patient): Female Spiritual care concerns: No Exam Const: General: no acute distress and alert Orientation/consciousness: patient oriented x3 Eyes: EOM: EOMs intact bilaterally Resp: Effort & Inspection: normal respiratory effort and no retractions Auscultation: clear to auscultation bilaterally Cardio: Rate: regular rate Rhythm: regular rhythm Heart sounds: no murmurs GI: GI Palp: Yes Soft to palpation, Yes Tenderness to palpation present (GI) (LLQ), No Guarding due to palpation present (GI) and No Rigid due to palpation Auscultation: normal bowel sounds Skin: General skin exam: normal color Rashes: no rashes Neuro: General: patient oriented x3, moves all extremities and CN's II-XI intact bilaterally Psych: Mental Status: mental status grossly normal Affect: normal affect Course Reevaluation(s) Reevaluation #1: Patient is still having severe pain. She is agreeable to observation for pain control. Dr. Barnett accepts patient to Dr. Perdomo's service for pain control due to this complex ovarian mass Date: 08/15/21 Time: 05:07 Vital Signs Vital signs: Vital Signs Temperature 98 F 02
[2021-08-15] MEDS: SODIUM CHLORIDE 0.9% IV 1,000 ML 999 ML IV CONT (02:10)
--- NOTE | 2021-08-15 02:10 | PC.NURSE ---
US called in for pt.
[2021-08-15] MEDS: HYDROmorphone HCL INJ (*CRX) 1 MG/ML SYR IV PUSH (02:11)
[2021-08-15] MEDS: KETOROLAC 30 MG/ML VIAL (*BKC) IV PUSH (04:23)
[2021-08-15] MEDS: HYDROmorphone HCL INJ (*CRX) 1 MG/ML SYR 0.5 MG IV PUSH ×2 (05:39→09:31)
[2021-08-15] MEDS: SODIUM CHLORIDE 0.9% IV 1,000 ML 125 ML IV CONT (05:41)
--- NOTE | 2021-08-15 05:52 | PC.NURSE ---
SBAR faxed to 2n floor OB.
--- NOTE | 2021-08-15 06:30 | PC.NURSE ---
This patient, Christine Jimenes, was [facility] on 08/15/21 at 0630. Patient/family oriented to unit policies and routines
[2021-08-15] MEDS: NITROFURANTOIN MONOHYD MACROCR 100 MG CAP PO (09:31)
--- NOTE | 2021-08-15 10:02 | PM.IMHP ---
H&P: HPI History of Present Illness Date/Time: 08/15/21 10:02 The patient is a 30-year-old 2 para 2 admitted through the emergency room with left lower quadrant pain secondary to a complex ovarian mass. Patient has had pain for approximately 2 weeks and was scheduled for an ultrasound this coming Monday. Patient was given Toradol by her primary physician. This was holding the pain until last evening when the pain became severe so she went to the emergency room. CT scan and ultrasound were completed and revealed a complex left ovarian mass 3.7x3.6x3.9cm. There are avascular thin septations. Good blood flow to the ovary. No free fluid. The patient was admitted for pain control as Toradol and morphine did not relieve the pain in the emergency room and she required Dilaudid. The patient is amenable to attempting oral medications today. The patient is subsequently scheduled for a bilateral tubal ligation on August 26. Chief Complaint: Abdominal pain Review of Systems Constitutional: Constitutional: Reports no additional constitutional complaints Gastrointestinal: Gastrointestinal: Reports no additional gastrointestinal complaints PMFSH Past Medical History Medical History ADH disorder ADHD Brain tumor Depression Generalized anxiety disorder Generalized hyperhidrosis Glioma tectorial gliomahe Headache, migraine Hydrocephalus Hyperthyroidism Obesity (BMI 30-39.9) PIH ( induced hypertension) Surgical History Surgical History Delivery by section (05/19/21) primary c/s History of brain surgery 2012 History of cholecystectomy History of gynecological procedure (06/10/21) retained products of conception History of vaginal surgery complete vaginal reconstruction after vaginal Family History Family History Father Family history of elevated blood lipids Diabetes mellitus Depression Mother Melanoma Social History Social History Smoking packs per day: 0.75 Smoking cigarettes per day: 15.0 Years smoked: 10 Smoking pack-years: 7.50 Smoking status: Former smoker Alcohol intake: never Substance use: never Gender identity (if verbalized by the patient): Female Spiritual care concerns: No Meds Home Medications and Allergies Home Medications Medication Instructions Recorded Confirmed Type risperidone 0.25 mg BID PRN 03/06/21 08/04/21 History venlafaxine 37.5 mg 75 mg PO DAILY cap 06/29/21 08/04/21 History capsule,extended release 24 hr ketorolac [Toradol] 10 mg PO QID PRN 08/14/21 History Allergies Allergy/AdvReac Type Severity Reaction Status Date / Time cephalexin Allergy Mild Rash Verified 08/14/21 23:27 prochlorperazine AdvReac Intermediate Anxiety Verified 08/14/21 23:27 [From Compazine] metoclopramide [From Reglan] AdvReac Anxiety Verified 08/14/21 23:27 Vital Signs Vital Signs - 24 hr 08/14/21 22:15 08/14/21 23:29 08/14/21 23:30 Temperature 98 F Pulse Rate 98 Respiratory Rate 15 Blood Pressure 115/71 110/78 Pulse Oximetry 99 96 98 08/14/21 23:31 08/14/21 23:45 08/14/21 23:46 Temperature Pulse Rate Respiratory Rate Blood Pressure 110/73 118/82 Pulse Oximetry 98 99 99 08/15/21 00:01 08/15/21 00:02 08/15/21 00:15 Temperature Pulse Rate Respiratory Rate Blood Pressure 114/79 Pulse Oximetry 100 100 100 08/15/21 00:16 08/15/21 02:34 08/15/21 05:02 Temperature Pulse Rate 78 90 85 Respiratory Rate 16 14 18 Blood Pressure 117/73 122/79 111/71 Pulse Oximetry 100 98 99 08/15/21 05:42 08/15/21 07:00 Temperature 97.8 F Pulse Rate 82 70 Respiratory Rate 16 18 Blood Pressure 113/74 126/84 Pulse Oximetry 98 Exam Const: General: comfortable (Just
[2021-08-15] MEDS: HYDROcodone/acetaminophen (*CRX) 10-325 MG TABLET 1 TAB PO ×2 (11:40→12:39)
[2021-08-15] MEDS: IBUPROFEN 400 MG TABLET 800 MG PO (12:42)
== END 2021-08-15 14:10 | disposition home or self-care (01) ==
LOC: ANHED 08-15 05:12 → ANHOB2 08-15 10:17
PROVIDERS: Admitting Provider Obstetrics & Gynecology; Emergency Provider General Practice; PCP Nurse Practitioner Family; Visit Provider Obstetrics & Gynecology Gynecology
DX: N83.202 Unspecified ovarian cyst, left side (principal); R10.32 Left lower quadrant pain; E03.9 Hypothyroidism, unspecified; Z90.49 Acquired absence of other specified parts of digestive tract; Z85.841 Personal history of malignant neoplasm of brain; Z87.891 Personal history of nicotine dependence
CPT/HCPCS: 36415; 74018; 74176; 76830; 76856; 80053; 81001; 81025; 83690; 85025; 87086; 87088; 96361; 96374; 96375; 96376; 99285; A9270; G0378; J0131; J1170; J1885; J2270; J2405; J7030

== ENCOUNTER 2021-08-17 20:34 | Emergency (ER) | payer BC, SELFPAY ==
--- NOTE | ~2021-08-17 | US_ITS ---
US pelvic complete w TV DATE: 08/17/2021 23:17 INDICATION: Acute pelvic pain TECHNIQUE: Real-time imaging via transabdominal and transvaginal approaches COMPARISON: August 15, 2021 pelvic ultrasound FINDINGS: The uterus measures 8.7 cm height, 3.6 cm AP and 6 cm transverse dimension. The central end ometrial echo measures 5 mm AP dimension. The right ovary is obscured by bowel. The left ovary measures 4.5 x 4.4 x 5.1 cm. There is limited vascular flow at the periphery of the o vary; ovarian torsion is not confidently excluded. There is a complex enhancement of the left measuring 3.9 x 4.5 cm, stable since August 15, 2021. IMPRESSION: Complex left ovarian mass, stable since 08/15/2021; limited vascularity at the periphery o f the ovary. Torsion is not confidently excluded. Reviewed, dictated and finalized at Location A. Reviewed, dictated and finalized at location A. MAL SURFACING MACHINE OPERATOR IMPRESSION: Complex left ovarian mass, stable since 08/15/2021; limited vascular ity at the periphery of the ovary. Torsion is not confidently excluded.
[2021-08-17 21:19] VITALS: BP 130/81; PULSE 84; RESP 18; TEMP 36.8; O2SAT 100
--- NOTE | 2021-08-17 22:50 | ED.ABDPAIN ---
HPI - Abdominal Pain General Chief Complaint: Abdominal Pain <ANDRES Velásquez Last Filed: 08/18/21 05:24> Stated Complaint: abd pain <ANDRES Velásquez Last Filed: 08/18/21 05:24> Time Seen by Provider: 08/17/21 22:21 <ANDRES Velásquez Last Filed: 08/18/21 05:24> Source: patient <ANDRES Velásquez Last Filed: 08/18/21 05:24> Mode of arrival: ambulatory <ANDRES Velásquez Last Filed: 08/18/21 05:24> Limitations: no limitations <ANDRES Velásquez Last Filed: 08/18/21 05:24> History of Present Illness HPI narrative: This is a 30-year-old female who presents to the ED with complaints of left lower quadrant pain, radiating around to left lower back. Patient was seen in the ED on Monday, 08/14, at which point she was diagnosed with a large complex ovarian cyst. She was admitted to the hospital overnight for IV pain control and seen by INTERNATIONAL LOGISTICS COORDINATOR inpatient (Dr. Perdomo). She is scheduled for a bilateral tubal ligation and ovarian cystectomy on August 26. Patient reports she has been doing well with the pain at home, with alternating ibuprofen and Martelle. The pain became acutely worse today around noon, thus prompting her to return to the ED. She also reports having nausea but denies any vomiting, fever, chills, diarrhea, urinary symptoms, or any other infectious symptoms. <ANDRES Velásquez Last Filed: 08/18/21 05:24> Related Data Home Medications: Home Medications Medication Instructions Recorded Confirmed risperidone 0.25 mg BID PRN 03/06/21 08/17/21 venlafaxine 37.5 mg 75 mg PO DAILY cap 06/29/21 08/17/21 capsule,extended release 24 hr <ANDRES Velásquez Last Filed: 08/18/21 05:24> Allergies/Adverse Reactions: Allergies Allergy/AdvReac Type Severity Reaction Status Date / Time cephalexin Allergy Mild Rash Verified 08/14/21 23:27 metoclopramide [From Reglan] AdvReac Intermediate INCREASED Verified 08/17/21 15:27 HR prochlorperazine AdvReac Intermediate INCREASED Verified 08/17/21 15:27 [From Compazine] HR <Kary Cruz PA-C - Last Filed: 08/18/21 05:24> Review of Systems Review of Systems: CONSTITUTIONAL: Denies fever, chills, or sweats. ENT: Denies rhinorrhea, congestion, sore throat, or otalgia. CARDIOVASCULAR: Denies chest pain. RESPIRATORY: Denies cough or dyspnea. GASTROINTESTINAL: Reports LLQ abdominal pain and nausea. Denies vomiting or diarrhea. GENITOURINARY: Denies dysuria or hematuria. MUSCULOSKELETAL: Reports L lower back pain. Denies joint pain or myalgia. NEUROLOGIC: Denies headache, numbness, or weakness. <Kary Cruz PA-C - Last Filed: 08/18/21 05:24> All systems reviewed & are unremarkable except as noted in HPI and below <Kary Cruz PA-C - Last Filed: 08/18/21 05:24> [facility] Past Medical History Medical History: Medical History ADH disorder ADHD Brain tumor Depression Generalized anxiety disorder Generalized hyperhidrosis Glioma tectorial gliomahe Headache, migraine Hydrocephalus Hyperthyroidism Mass of left ovary Obesity (BMI 30-39.9) PIH ( induced hypertension) <Kary Cruz PA-C - Last Filed: 08/18/21 05:24> Surgical History Surgical History: Surgical History Delivery by section (05/19/21) primary c/s History of brain surgery 2012 History of cholecystectomy History of gynecological procedure (06/10/21) retained products of conception History of vaginal surgery complete vaginal reconstruction after vaginal <Kary Cruz PA-C - Last Filed: 08/18/21 05:24> Family History Family History: Family History Father Family history of elevated blood lipids Diabetes mellitus Depression Mother Melanoma <Kary Cruz PA-C - Last Filed: 08/18/21 05:24>
[2021-08-17 23:12] LABS: Basophils Absolute Auto 0.1 K/mm3 (0.0-0.1); Basophils Percent Auto 0.7 % (0.2-1.2); Eosinophils Absolute Auto 0.3 K/mm3 (0-0.3); Hematocrit 37.4 % (37.0-47.0); Hemoglobin 12.1 g/dL (12.0-15.0); Immature Granulocyte Absolute 0.01 K/mm3 (0.00-0.031); Immature Granulocyte Percent A 0.1 % (0-0.5); Lymphocytes Absolute Auto 3.52 K/mm3 (0.9-3.2); Lymphocytes Percent Auto 51.4 % (18.3-44.2); Mean Corpuscular HGB Conc 32.4 g/dl (32-36); Mean Corpuscular Hemoglobin 31.6 pg (26-34); Mean Corpuscular Volume 97.7 fl (80-100); Mean Platelet Volume 10.1 fl (7.4-10.4); Monocytes Absolute Auto 0.5 K/mm3 (0.1-0.6); Monocytes Percent Auto 7.2 % (2.6-8.5); Neutrophils Absolute Auto 2.4 K/mm3 (1.3-6.7); Neutrophils Percent Auto 35.6 % (45.5-73.1); Platelet Count Result 242 k/mm3 (150-375); Red Blood Count 3.83 M/mm3 (4.2-5.4); Red Cell Distribution Width 13.5 % (11.5-14.5); White Blood Count 6.9 K/mm3 (4.5-10.0)
[2021-08-17 23:15] LABS: Alanine Aminotransferase 18 U/L (4-35); Albumin Level 4.4 g/dL (3.5-5.1); Alkaline Phosphatase 57 U/L (38-126); Anion Gap 5 mmol/L (8-16); Aspartate Amino Transferase 21 U/L (14-36); Bilirubin,Total 0.2 mg/dL (0.2-1.3); Blood Urea Nitrogen 15 mg/dL (7-17); Calcium 8.9 mg/dL (8.4-10.2); Carbon Dioxide 31 mmol/L (22-30); Chloride 105 mmol/L (98-107); Estimated CRCL calculation 89 ml/min; Estimated Glomerular Filt Rate > 60; Glucose 83 mg/dL (65-110); Sodium 141 mmol/L (137-145)
[2021-08-17 23:20] LABS: Add Urine Microscopic? YES; Appearance Urine Cloudy (Clear); Bacteria Urine 1+ /hpf; Bilirubin Urine Negative (Negative); Blood Urine Negative (Negative); Color Urine Yellow (Yellow); Glucose Urine UA Negative (Negative); Ketones Urine Negative (Negative); Leukocyte Esterase Ur 2+ LEU/UL (Negative); Mucus Urine Few /lpf; Nitrate Urine Negative (Negative); Protein Urine 1+ mg/dL (Negative); Specific Grav Ur 1.027 (1.001-1.035); Squamous Epithelial Cell Urine Many /hpf (Few); WBC Urine 21-30 /hpf
[2021-08-17] MEDS: ONDANSETRON INJ 4 MG/2 ML VIAL IV PUSH (23:39)
[2021-08-17] MEDS: MORPHINE SULFATE (*CRX) 4 MG/ML INJ IV PUSH (23:41)
[2021-08-17] MEDS: SODIUM CHLORIDE 0.9% IV 1,000 ML 999 ML IV CONT (23:48)
[2021-08-18 00:33] VITALS: BP 124/86; PULSE 66; RESP 12; TEMP 36.8; O2SAT 98
== END 2021-08-18 01:35 | disposition home or self-care (01) ==
PROVIDERS: Emergency Medicine; Emergency Provider Emergency Medicine; PCP Nurse Practitioner Family
DX: N83.202 Unspecified ovarian cyst, left side (principal); N30.00 Acute cystitis without hematuria; F90.9 Attention-deficit hyperactivity disorder, unspecified type; F32.A Depression, unspecified; F41.1 Generalized anxiety disorder; E05.90 Thyrotoxicosis, unspecified without thyrotoxic crisis or storm; E66.9 Obesity, unspecified; Z68.20 Body mass index [BMI] 20.0-20.9, adult; Z87.891 Personal history of nicotine dependence
CPT/HCPCS: 36415; 76830; 76856; 80053; 81001; 85025; 87086; 87088; 96361; 96374; 96375; 99284; J2270; J2405; J7030

== ENCOUNTER → 2021-08-18 08:33 | Outpatient (CLI) | payer BC, SELFPAY ==
[2021-08-18 11:51] LABS: SARS-CoV-2 RNA PCR Negative
== END ==
PROVIDERS: PCP Nurse Practitioner Family; Visit Provider Obstetrics & Gynecology
DX: Z01.812 Encounter for preprocedural laboratory examination (principal); Z20.822 Contact with and (suspected) exposure to COVID-19
CPT/HCPCS: C9803; U0003; U0005

== ENCOUNTER 2021-08-19 23:31 | Emergency (ER) | payer BC, SELFPAY ==
[2021-08-19 23:32] VITALS: BP 125/82; PULSE 114; RESP 18; TEMP 36.4; O2SAT 100
[2021-08-19 23:50] VITALS: PULSE 103; RESP 9; O2SAT 100
[2021-08-20] VITALS (9 sets, daily range): BP systolic 133–140; BP diastolic 85–95; PULSE 68–105; RESP 12–18; O2SAT 92–100
--- NOTE | 2021-08-20 00:11 | ED.ABDPAIN ---
HPI - Abdominal Pain General Chief Complaint: Abdominal Pain Stated Complaint: abd pain/ vomiting Time Seen by Provider: 08/19/21 23:35 History of Present Illness HPI narrative: 30-year-old female presents to the emergency room with left lower quadrant abdominal pain. Patient states she has been evaluated twice in the emergency room for same complaint. 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 Patient states she has been taking [place] and Zofran without symptom relief. Related Data Home Medications Medication Instructions Recorded Confirmed risperidone 0.25 mg BID PRN 03/06/21 08/18/21 venlafaxine 37.5 mg 75 mg PO HS cap 06/29/21 08/18/21 capsule,extended release 24 hr medroxyprogesterone [Provera] 10 mg PO HS 08/18/21 08/18/21 Allergies Allergy/AdvReac Type Severity Reaction Status Date / Time cephalexin Allergy Mild Rash Verified 08/18/21 10:14 metoclopramide [From Reglan] AdvReac Intermediate INCREASED Verified 08/18/21 10:14 HR prochlorperazine AdvReac Intermediate INCREASED Verified 08/18/21 10:14 [From Compazine] HR promethazine [From Phenergan] AdvReac Anxiety Verified 08/20/21 01:11 Review of Systems Review of Systems: CONSTITUTIONAL: Denies fever, chills, or sweats. EYES: Denies visual changes, redness, or discharge. ENT: Denies rhinorrhea, congestion, sore throat, or otalgia. CARDIOVASCULAR: Denies chest pain, palpitations, or edema. RESPIRATORY: Denies cough or dyspnea. GASTROINTESTINAL: Reports lower abdominal pain, nausea, vomiting GENITOURINARY: Denies dysuria or hematuria. SKIN: Denies rash or itching. MUSCULOSKELETAL: Denies back pain, joint pain, or myalgia. NEUROLOGIC: Denies headache, numbness, dizziness, or weakness. PSYCHIATRIC: Denies anxiety or depression. [facility] Past Medical History Medical History ADH disorder ADHD Brain tumor Depression Generalized anxiety disorder Generalized hyperhidrosis Glioma tectorial gliomahe Headache, migraine Hydrocephalus Hyperthyroidism Mass of left ovary Obesity (BMI 30-39.9) PIH ( induced hypertension) Surgical History Surgical History Delivery by section (05/19/21) primary c/s History of brain surgery 2011 History of cholecystectomy History of gynecological procedure (06/10/21) retained products of conception History of vaginal surgery complete vaginal reconstruction after vaginal Family History Family History Father Family history of elevated blood lipids Diabetes mellitus Depression Mother Melanoma Social History Social History Smoking packs per day: 0.75 Smoking cigarettes per day: 15.0 Years smoked: 11 Smoking pack-years: 8.25 Smoking status: Former smoker Tobacco type: cigarettes Alcohol intake: never Substance use: never Last use: 2017 Gender identity (if verbalized by the patient): Female Spiritual care concerns: No Exam Narrative: GENERAL: Well-appearing, well-nourished, and in no acute distress. HEAD: Normocephalic, atraumatic. EYES: PERRLA and EOMI. ENT: Nares clear, no rhinorrhea or epistaxis. Mucous membranes moist. NECK: Supple. No adenopathy or masses. No carotid bruits or JVD CHEST: Clear to auscultation. No respiratory distress. No wheezes rales or rhonchi HEART: Regular rate and rhythm. No murmur heard. Normal peripheral pulses. ABDOMEN: Soft, left lower quadrant tenderness, nondistended, normal active bowel sounds. EXTREMITIES: Normal range of motion. No edema. SKIN: Warm, dry, no rash. NEURO: No focal deficits. Alert and oriented x3. PSYCH: Normal mood and affect. Course Vital Signs Vital signs: Vital Signs Temperature 36.4 C 08/19/21 23:32 Pulse Rate
[2021-08-20] MEDS: MORPHINE SULFATE (*CRX) 4 MG/ML INJ IV PUSH ×2 (00:16→01:23)
[2021-08-20] MEDS: ONDANSETRON INJ 4 MG/2 ML VIAL IV PUSH (00:16)
[2021-08-20] MEDS: SODIUM CHLORIDE 0.9% IV 1,000 ML 999 ML IV CONT (00:17)
[2021-08-20 00:26] LABS: Basophils Percent Auto 0.5 % (0.2-1.2); Eosinophils Absolute Auto 0.3 K/mm3 (0-0.3); Eosinophils Percent Auto 4.4 % (0-4.4); Hematocrit 43.1 % (37.0-47.0); Hemoglobin 14.2 g/dL (12.0-15.0); Immature Granulocyte Absolute 0.01 K/mm3 (0.00-0.031); Immature Granulocyte Percent A 0.1 % (0-0.5); Lymphocytes Absolute Auto 3.55 K/mm3 (0.9-3.2); Lymphocytes Percent Auto 45.6 % (18.3-44.2); Mean Corpuscular HGB Conc 32.9 g/dl (32-36); Mean Corpuscular Hemoglobin 31.6 pg (26-34); Mean Platelet Volume 10.1 fl (7.4-10.4); Monocytes Absolute Auto 0.6 K/mm3 (0.1-0.6); Monocytes Percent Auto 7.3 % (2.6-8.5); Neutrophils Absolute Auto 3.3 K/mm3 (1.3-6.7); Neutrophils Percent Auto 42.1 % (45.5-73.1); Platelet Count Result 279 k/mm3 (150-375); Red Blood Count 4.49 M/mm3 (4.2-5.4); Red Cell Distribution Width 13.6 % (11.5-14.5); White Blood Count 7.8 K/mm3 (4.5-10.0)
[2021-08-20 00:31] LABS: Alanine Aminotransferase 22 U/L (4-35); Albumin Level 4.9 g/dL (3.5-5.1); Alkaline Phosphatase 69 U/L (38-126); Anion Gap 7 mmol/L (8-16); Aspartate Amino Transferase 26 U/L (14-36); Bilirubin,Total 0.4 mg/dL (0.2-1.3); Blood Urea Nitrogen 16 mg/dL (7-17); Calcium 9.2 mg/dL (8.4-10.2); Carbon Dioxide 26 mmol/L (22-30); Chloride 107 mmol/L (98-107); Estimated CRCL calculation 89 ml/min; Estimated Glomerular Filt Rate > 60; Glucose 87 mg/dL (65-110); Potassium 3.8 mmol/L (3.4-5.0); Sodium 140 mmol/L (137-145)
[2021-08-20] MEDS: KETOROLAC 30 MG/ML VIAL (*BKC) IV PUSH (01:10)
== END 2021-08-20 01:45 | disposition home or self-care (01) ==
PROVIDERS: Emergency Provider Nurse Practitioner Family; PCP Nurse Practitioner Family
DX: R10.32 Left lower quadrant pain (principal); N83.202 Unspecified ovarian cyst, left side; F90.9 Attention-deficit hyperactivity disorder, unspecified type; F32.A Depression, unspecified; F41.8 Other specified anxiety disorders; E05.90 Thyrotoxicosis, unspecified without thyrotoxic crisis or storm; E66.9 Obesity, unspecified; Z68.20 Body mass index [BMI] 20.0-20.9, adult; Z87.891 Personal history of nicotine dependence
CPT/HCPCS: 36415; 80053; 85025; 96361; 96374; 96375; 96376; 99284; J1885; J2270; J2405; J7030

== ENCOUNTER 2021-08-20 02:43 | Day surgery (SDC) | payer BC, SELFPAY ==
[2021-08-17 14:57] VITALS: BMI 20.7
--- NOTE | 2021-08-17 15:29 | PC.NURSE ---
Addendum entered by Lilly Bean RN 08/18/21 10:14: PT TO CONTINUE TAKING ANTIBIOTIC Addendum entered by Lilly Bean RN 08/18/21 10:13: PT TO ARRIVE AT 1100 ON 08/20/21 FOR SURGERY AT 1300. MAY TAKE PAIN PILL AND RISPERIDONE DOS IF NEEDED. Original Note: Report to the Outpatient Waiting Room, entrance under the green pavilion located off [facility], at time 0615 on date __08/26/21 . OR Time: __0815 . YOU WILL BE NOTIFIED ON Mon08/25/21 IF YOUR SURGERY TIME IN CHANGED - You and your visitor will be asked a series of questions to screen for COVID 19 for your protection. - A mask is required within the hospital. Preoperative COVID Testing Requirements: No COVID Test needed if: (proof is required; if not received patient will have Rapid Test prior to entry) - Patient has received COVID Vaccine at least 14 days prior to procedure date or - Patient has positive COVID test result within last 90 days of surgery date. COVID Test needed if above criteria is not met--COVID SWAB SCHEDULED ON 08/23/21 @ 0915 If not COVID vaccinated a COVID test must be conducted within 72 hours of surgery and patient is asked to isolate self from time of testing until procedure. You will go to the [facility] for your COVID testing. The [facility] Testing site is located at the corner of [address] [facility]. You will only be called if COVID results are positive and your surgeon may reschedule your elective surgery date. Patients may have clear liquids (water, carbonated beverages, clear teas, apple juice) until 3 hours prior to surgery with a maximum of 20 ounces. - No food from midnight until time of surgery - Infants may have breast milk until 4 hours before surgery, infant formula 6 hours prior to surgery. - Children will be allowed to drink immediately following surgery. If applicable, please bring a bottle or sippy cup to assist with drinking. Juice, water, soda, and popsicles are readily available. For infants on formula, please bring formula the day of surgery. Pacifiers are allowed. Take the following medications with a SIP of water the morning of surgery: __TAKE PER YOUR ROUTINE AT NIGHT Medications to discontinue per physician IBUPROFEN 08/23/21 Date to take last dose___08/23/21 Please no make-up, nail tajik, hairspray, perfume, deodorant, or body powder the day of surgery. No jewelry (including any body piercings) or valuables the day of surgery, leave them at home. Please take a shower or bath the night before, or the morning of, surgery with an antibacterial soap. Wear comfortable, loose fitting clothing. Children are encouraged to wear pajamas. - Jewelry must be removed prior to entering the operating room. Rings and piercings that are not removed may be cut off. - The hospital will not accept responsibility for valuables. - Please leave all valuables, including medications, at home the day of surgery. If you are going home after surgery, a licensed local bulk driver must drive you home. - NO public transportation without another adult. - We recommend that an adult stay with you for 24 hours following discharge. - We also recommend that you do not drive, make important decision, drink alcoholic beverages, or take any drugs that were not prescribed by your health care provider for at least 24 hours after your discharge time. For Pediatric surgeries, we recommend two adults accompany the child home (only one inside the building at this time). One visitor will be allowed to accompany the patient into the hospital. Patients visitor will be instructed to remain with patient at all times or leave the building. We will allow the visitor to come back to the postoperative area when patient is ready. Follow any additional instructions given to you from your surgeon. Telephone instructions given to __MENDEZ
[2021-08-20] VITALS (10 sets, daily range): BP systolic 110–130; BP diastolic 72–94; PULSE 61–77; RESP 10–16; TEMP 36.1–37.9; O2SAT 99–100
--- NOTE | 2021-08-20 08:50 | PM.IMHP ---
H&P: HPI History of Present Illness Date/Time: 08/20/21 08:50 30-year-old female presents for sterilization procedure. We have discussed the permanence failure rate increased risk of ectopic and regret and patient states good understanding and agrees to proceed with bilateral salpingectomy. Also has recently had a ovarian cyst which she has been seen in the emergency room twice for pain relief and we will also evaluate this as well. She understands she may undergo cystectomy and/or oophorectomy depending on findings at the time of the procedure. Chief Complaint: Undesired fertility and left adnexal pain Review of Systems Review of Systems: All systems reviewed & are unremarkable except as noted in HPI and below PMFSH Past Medical History Medical History ADH disorder ADHD Brain tumor Depression Generalized anxiety disorder Generalized hyperhidrosis Glioma tectorial gliomahe Headache, migraine Hydrocephalus Hyperthyroidism Mass of left ovary Obesity (BMI 30-39.9) PIH ( induced hypertension) Surgical History Surgical History Delivery by section (05/19/21) primary c/s History of brain surgery 2011 History of cholecystectomy History of gynecological procedure (06/10/21) retained products of conception History of vaginal surgery complete vaginal reconstruction after vaginal Family History Family History Father Family history of elevated blood lipids Diabetes mellitus Depression Mother Melanoma Social History Social History Smoking packs per day: 0.75 Smoking cigarettes per day: 15.0 Years smoked: 10 Smoking pack-years: 7.50 Smoking status: Former smoker Tobacco type: cigarettes Alcohol intake: never Substance use: never Last use: 2017 Living arrangements: with family Gender identity (if verbalized by the patient): Female Spiritual care concerns: No Meds Home Medications and Allergies Home Medications Medication Instructions Recorded Confirmed Type risperidone 0.25 mg BID PRN 03/06/21 08/18/21 History venlafaxine 37.5 mg 75 mg PO HS cap 06/29/21 08/18/21 History capsule,extended release 24 hr hydrocodone-acetaminophen 1 tablet PO Q6H PRN 30 Days #30 08/15/21 08/18/21 Rx tablet ibuprofen 800 mg PO Q8HR #1 tablet 08/15/21 08/18/21 Rx medroxyprogesterone [Provera] 10 mg PO HS 08/18/21 08/18/21 History sulfamethoxazole-trimethoprim 1 tablet PO HS #7 tablet 08/18/21 08/18/21 Rx [Bactrim] Allergies Allergy/AdvReac Type Severity Reaction Status Date / Time cephalexin Allergy Mild Rash Verified 08/18/21 10:14 metoclopramide [From Reglan] AdvReac Intermediate INCREASED Verified 08/18/21 10:14 HR prochlorperazine AdvReac Intermediate INCREASED Verified 08/18/21 10:14 [From Compazine] HR promethazine [From Phenergan] AdvReac Anxiety Verified 08/20/21 01:11 Exam Const: General: cooperative and healthy appearing Resp: Effort & Inspection: normal respiratory effort Auscultation: clear to auscultation bilaterally Cardio: Rate: regular rate Rhythm: regular rhythm GI: Inspection: normal to inspection Auscultation: normal bowel sounds : External Female Exam: normal external appearance Speculum Exam - Vagina: normal appearance of the vagina Speculum Exam - Cervix: normal appearance of the cervix Bimanual exam- vagina & uterus: non-tender Bimanual Exam- Adnexa, other: tender on the left Assessment and Plan Assessment and plan (1) Mass of left ovary: Code(s): N83.8 - Other noninflammatory disorders of ovary, fallopian tube and broad ligament Status: Acute (2) Encounter for female sterilization procedure: Code(s): Z30.2 - Encounter for sterilization Status: Acute Addit
--- NOTE | 2021-08-20 08:55 | WPDHPUPDATE1 ---
History and Physical Update Update Date/Time: 08/20/21 08:55 History and Physical has been reviewed, including an updated exam of the patient. There are NO changes in the patient's condition. Risks, benefits, and alternatives have been discussed and questions answered. Patient agrees to proceed with procedure.
--- NOTE | 2021-08-20 09:15 | P.PNAN_ITS ---
Anes - Eval Pre Procedure Procedure: Operation Date: 08/20/21 13:00 Proposed Procedures p Bilateral Laparoscopic Salpingectomy with Laparoscopic Left Ovarian Cystectomy, Possible Left Oophorectomy - Lev Perdomo MD Date/Time: 08/20/21 09:15 Surgeon: Dr. Perdomo Preop Diagnosis: left ovarian cyst Pre Op Diagnosis: desires sterilization Patient Data Age: 30 Gender: F Height: 1.73 m Weight: 62 kg Allergies Allergy/AdvReac Type Severity Reaction Status Date / Time cephalexin Allergy Mild Rash Verified 08/18/21 10:14 metoclopramide [From Reglan] AdvReac Intermediate INCREASED Verified 08/18/21 10:14 HR prochlorperazine AdvReac Intermediate INCREASED Verified 08/18/21 10:14 [From Compazine] HR promethazine [From Phenergan] AdvReac Anxiety Verified 08/20/21 01:11 Home Medications Medication Instructions Recorded Confirmed Type risperidone 0.25 mg BID PRN 03/06/21 08/18/21 History venlafaxine 37.5 mg 75 mg PO HS cap 06/29/21 08/18/21 History capsule,extended release 24 hr hydrocodone-acetaminophen 1 tablet PO Q6H PRN 30 Days #30 08/15/21 08/18/21 Rx tablet ibuprofen 800 mg PO Q8HR #1 tablet 08/15/21 08/18/21 Rx medroxyprogesterone [Provera] 10 mg PO HS 08/18/21 08/18/21 History sulfamethoxazole-trimethoprim 1 tablet PO HS #7 tablet 08/18/21 08/18/21 Rx [Bactrim] EC05/26/21 SR 88 Patient hx anesthesia problems: none Family hx anesthesia problems: none Results Review: All pre-operative results and documents have been reviewed as part of the pre-operative evaluation. FORMERLY [facility], [facility] Past Medical History Medical History ADH disorder ADHD Brain tumor Depression Generalized anxiety disorder Generalized hyperhidrosis Glioma tectorial gliomahe Headache, migraine Hydrocephalus Hyperthyroidism Mass of left ovary Obesity (BMI 30-39.9) PIH ( induced hypertension) Surgical History Surgical History Delivery by section (05/19/21) primary c/s History of brain surgery 2011 History of cholecystectomy History of gynecological procedure (06/10/21) retained products of conception History of vaginal surgery complete vaginal reconstruction after vaginal Family History Family History Father Family history of elevated blood lipids Diabetes mellitus Depression Mother Melanoma Social History Social History Smoking packs per day: 0.75 Smoking cigarettes per day: 15.0 Years smoked: 10 Smoking pack-years: 7.50 Smoking status: Former smoker Tobacco type: cigarettes Alcohol intake: never Substance use: never Last use: 2017 Living arrangements: with family Gender identity (if verbalized by the patient): Female Spiritual care concerns: No Exam Day of Procedure 08/20/21 09:15
[2021-08-20] MEDS: LACTATED RINGERS 1,000 ML 30 ML IV CONT ×2 (12:03→13:58)
[2021-08-20] MEDS: ACETAMINOPHEN 500 MG TABLET 1000 MG PO (12:05)
[2021-08-20] MEDS: KETOROLAC 15 MG/ML VIAL (*BKC) IV PUSH (12:06)
--- NOTE | 2021-08-20 12:39 | WPDANESEFPP ---
Anes - Eval Final PreProcedure Day of Procedure 08/20/21 12:39 Patient weight: normal Heart: regular rate and rhythm Lungs: clear to auscultation and normal air movement Airway: Mallampati scale class 1 Neurological: alert and oriented Last oral intake: >/= 8 hours ASA classification: II Emergent: no Anesthetic plan: proceed Anesthesia type and monitoring: general ETT and standard monitoring Results Review: All pre-operative results and documents have been reviewed as part of the pre-operative evaluation. Informed Consent: The patient's anesthetic plan and its attendant risks and benefits were discussed with the patient/family/POA. Questions were solicited and answers provided to the satisfaction of the patient/family/POA.
--- NOTE | 2021-08-20 13:51 | PM.OP ---
Procedure Note - Brief Procedure Note - Brief Date of procedure: 08/20/21 Pre-op diagnosis: desires sterilization 2. Left ovarian cyst Post-op diagnosis: Same Procedure performed: 1. Bilateral salpingectomy 2. Left ovarian cystectomy Description of procedure: Patient prepped and draped in usual manner for this procedure. Cervical os was placed for uterine mobility later in the case. Abdominal trocar sites were placed under direct visualization. First the Harmonic scalpel was used to cauterize and cut the mesial salpinx bilaterally and tubes were removed without difficulty there was no blood loss during this portion of procedure. The left ovary was then opened and drained of fluid and the cyst wall was removed without difficulty. Irrigation was undertaken and there is no bleeding. Prema was empirically placed in the bed of the ovary cyst site. Evaluation of pelvis revealed no other abnormalities at this point seizure was considered terminated. Gas was allowed to escape incisions approximated with 4-0 Monocryl patient was sent to recovery room in stable condition. Anesthesia: GETA Surgeon: Lev Perdomo MD Estimated blood loss (mL): 10 Drains: No Packing: No Pathology: Yes Complications: No immediate complications Condition: Stable Disposition: PACU Findings: 1. 3-4 cm hemorrhagic left ovarian cyst. 2. No other pelvic and or intra-abdominal gross anatomic abnormalities were noted.
[2021-08-20] MEDS: fentaNYL CITRATE INJ (*CRX) 100 MCG/2 ML VIAL 25 MCG IV PUSH ×8 (14:22→14:48)
[2021-08-20] MEDS: ONDANSETRON INJ 4 MG/2 ML VIAL IV PUSH (14:41)
[2021-08-20] MEDS: oxyCODONE HCL (*CRX) 5 MG TAB IR PO (15:34)
== END 2021-08-20 16:17 | disposition home or self-care (01) ==
PROVIDERS: PCP Nurse Practitioner Family; Visit Provider Obstetrics & Gynecology
PROC: (CPT 49320; principal; 2021-08-20 13:00)
DX: Z30.2 Encounter for sterilization (principal); N83.202 Unspecified ovarian cyst, left side; F90.9 Attention-deficit hyperactivity disorder, unspecified type; F32.9 Major depressive disorder, single episode, unspecified; F41.1 Generalized anxiety disorder; R61 Generalized hyperhidrosis; Z90.49 Acquired absence of other specified parts of digestive tract; Z87.891 Personal history of nicotine dependence
CPT/HCPCS: 58661; 88302; 88305; A9270; J1100; J1885; J2250; J2405; J2704; J2710; J3010; J7030; J7120

== ENCOUNTER 2021-08-24 12:32 | Emergency (ER) | payer BC, SELFPAY ==
[2021-08-24] VITALS (7 sets, daily range): BP systolic 114–144; BP diastolic 74–93; PULSE 56–111; RESP 18–20; TEMP 36.3–37.3; O2SAT 93–100
--- NOTE | ~2021-08-24 | CT_ITS ---
EXAMINATION: CT abdomen pelvis w con DATE: 08/24/2021 17:39 INDICATION: Nausea and vomiting and postsurgical pain following bilateral tubal ligation TECHNIQUE: Computed tomography (CT) of the abdomen and pelvis was performed with 100 mL Omnipaque-350 intravenous contrast. Automated exposure control and iterative reconstruction technique were employe d. The dose-length product was 252.47 mGy-cm. COMPARISON: CT dated 08/15/2021 and pelvic ultrasound dated 08/17/2021 FINDINGS: Lung bases are clear. Visualized inferior heart is normal. No pericardial or pleural effusion. Cholec ystectomy clips at gallbladder fossa. Liver, spleen, pancreas, bilateral adrenal glands and kidneys a re normal. Bowels including the appendix are normal. Postoperative change of prior laparoscopic surge ry with small amount of free fluid in the cul-de-sac and small amount free intraperitoneal gas predom inately below the diaphragm. Small amount of gas along a likely trochar access site just inferior to the umbilicus. Additional trocar access sites at the anterior left and right anterior pelvic kohli wi th 12 x 8 mm subcutaneous hematoma on the right and mild stranding on the left. Anteverted uterus and bladder are unremarkable. The right ovary is difficult to distinguish from the bowel at the right ad nexal region. Left ovary is significantly decreased in size since the prior studies consistent with i nterval ovarian cyst resection. There is approximately 1.5 x 1.0 cm region of increased attenuation a long side the left ovary and slightly greater than simple fluid attenuation in the small amount of fr ee fluid at the cul-de-sac suggesting a minimal amount of postoperative bleeding. No evident active c ontrast extravasation. No loculated fluid collections to suggest abscess. No pathologically enlarged abdominal or pelvic lymphadenopathy. Bones are unremarkable. IMPRESSION: 1. Postoperative changes consistent with recent bilateral salpingectomy and left ovarian cystectomy w ith minimal amount of likely postoperative blood in the cul-de-sac and tiny hematoma along the right anterior pelvic wall trocar access site. No evident active contrast extravasation. Reviewed, dictated and finalized at location A. [facility] IMPRESSION: 1. Postoperative changes consistent with recent bilateral salpingectomy and lef t ovarian cystectomy with minimal amount of likely postoperative blood in the c ul-de-sac and tiny hematoma along the right anterior pelvic wall trocar access site. No evident active contrast extravasation.
[2021-08-24 17:04] LABS: Basophils Absolute Auto 0.1 K/mm3 (0.0-0.1); Basophils Percent Auto 0.5 % (0.2-1.2); Eosinophils Absolute Auto 0.5 K/mm3 (0-0.3); Eosinophils Percent Auto 4.4 % (0-4.4); Hematocrit 38.9 % (37.0-47.0); Hemoglobin 12.7 g/dL (12.0-15.0); Immature Granulocyte Absolute 0.02 K/mm3 (0.00-0.031); Immature Granulocyte Percent A 0.2 % (0-0.5); Lymphocytes Absolute Auto 3.28 K/mm3 (0.9-3.2); Lymphocytes Percent Auto 31.9 % (18.3-44.2); Mean Corpuscular HGB Conc 32.6 g/dl (32-36); Mean Corpuscular Hemoglobin 31.8 pg (26-34); Mean Corpuscular Volume 97.3 fl (80-100); Mean Platelet Volume 9.9 fl (7.4-10.4); Monocytes Absolute Auto 0.4 K/mm3 (0.1-0.6); Monocytes Percent Auto 3.6 % (2.6-8.5); Neutrophils Absolute Auto 6.1 K/mm3 (1.3-6.7); Neutrophils Percent Auto 59.4 % (45.5-73.1); Platelet Count Result 304 k/mm3 (150-375); Red Cell Distribution Width 13.2 % (11.5-14.5); White Blood Count 10.3 K/mm3 (4.5-10.0)
[2021-08-24 17:13] LABS: Alanine Aminotransferase 19 U/L (4-35); Albumin Level 4.8 g/dL (3.5-5.1); Alkaline Phosphatase 64 U/L (38-126); Anion Gap 8 mmol/L (8-16); Aspartate Amino Transferase 25 U/L (14-36); Bilirubin,Total 0.5 mg/dL (0.2-1.3); Blood Urea Nitrogen 14 mg/dL (7-17); Calcium 9.4 mg/dL (8.4-10.2); Carbon Dioxide 27 mmol/L (22-30); Chloride 104 mmol/L (98-107); Estimated CRCL calculation 115 ml/min; Estimated Glomerular Filt Rate > 60; Glucose 96 mg/dL (65-110); Lipase 96 U/L (23-300); Potassium 4.1 mmol/L (3.4-5.0); Sodium 139 mmol/L (137-145)
[2021-08-24] MEDS: SODIUM CHLORIDE 0.9% IV 1,000 ML 999 ML IV CONT (17:22)
[2021-08-24] MEDS: ONDANSETRON INJ 4 MG/2 ML VIAL 8 MG IV PUSH (17:22)
[2021-08-24] MEDS: HYDROmorphone HCL INJ (*CRX) 1 MG/ML SYR 0.5 MG IV PUSH (17:22)
[2021-08-24 17:32] LABS: Add Urine Microscopic? YES; Appearance Urine Clear (Clear); Bilirubin Urine Negative (Negative); Blood Urine 1+ (Negative); Color Urine Yellow (Yellow); Glucose Urine UA Negative (Negative); Ketones Urine Negative (Negative); Leukocyte Esterase Ur Negative LEU/UL (Negative); Mucus Urine Rare /lpf; Nitrate Urine Negative (Negative); Protein Urine Negative (Negative); RBC Urine 0-2 /hpf (0-2); Specific Grav Ur 1.019 (1.001-1.035); Squamous Epithelial Cell Urine Rare /hpf (Few); Urobilinogen Urine Negative mg/dL (<2.0); WBC Urine 0-3 /hpf
--- NOTE | 2021-08-24 18:30 | ED.GENADULT ---
HPI - General Adult General Chief complaint: Nausea/Vomiting/Diarrhea Stated complaint: post surgical complications Time Seen by Provider: 08/24/21 16:37 Source: patient Mode of arrival: ambulatory Limitations: no limitations History of Present Illness HPI narrative: Patient is 30 years old white female came to the emergency room complaining of nausea, intermittent vomiting and abdominal pain status post bilateral tubal and ovarian cyst surgery August 20. By Dr. Perdomo. Patient currently on Zofran and [place] and would like to have a refill for her [place]. Patient denies any fever or chills. History of depression, anxiety, cholecystectomy.. Related Data Home Medications Medication Instructions Recorded Confirmed risperidone 0.25 mg BID PRN 03/06/21 08/20/21 venlafaxine 37.5 mg 75 mg PO HS cap 06/29/21 08/20/21 capsule,extended release 24 hr sulfamethoxazole-trimethoprim 1 tablet PO BID 08/20/21 08/20/21 [Bactrim] Allergies Allergy/AdvReac Type Severity Reaction Status Date / Time cephalexin Allergy Mild Rash Verified 08/24/21 16:46 metoclopramide [From Reglan] AdvReac Intermediate INCREASED Verified 08/24/21 16:46 HR prochlorperazine AdvReac Intermediate INCREASED Verified 08/24/21 16:46 [From Compazine] HR promethazine [From Phenergan] AdvReac Anxiety Verified 08/24/21 16:46 Review of Systems Review of Systems: CONSTITUTIONAL: Denies fever, chills, or sweats. EYES: Denies visual changes, redness, or discharge. ENT: Denies rhinorrhea, congestion, sore throat, or otalgia. CARDIOVASCULAR: Denies chest pain, palpitations, or edema. RESPIRATORY: Denies cough or dyspnea. GASTROINTESTINAL: Denies abdominal pain, nausea, vomiting, or diarrhea. GENITOURINARY: Denies dysuria or hematuria. SKIN: Denies rash or itching. MUSCULOSKELETAL: Denies back pain, joint pain, or myalgia. NEUROLOGIC: Denies headache, numbness, or weakness. PSYCHIATRIC: Denies anxiety or depression. [facility] Past Medical History Medical History ADH disorder ADHD Brain tumor Depression Generalized anxiety disorder Generalized hyperhidrosis Glioma tectorial gliomahe Headache, migraine Hydrocephalus Hyperthyroidism Mass of left ovary Obesity (BMI 30-39.9) PIH ( induced hypertension) Surgical History Surgical History Delivery by section (05/19/21) primary c/s History of brain surgery 2011 History of cholecystectomy History of gynecological procedure (06/10/21) retained products of conception History of vaginal surgery complete vaginal reconstruction after vaginal Family History Family History Father Family history of elevated blood lipids Diabetes mellitus Depression Mother Melanoma Social History Social History Smoking packs per day: 0.75 Smoking cigarettes per day: 15.0 Years smoked: 10 Smoking pack-years: 7.50 Smoking status: Former smoker Tobacco type: cigarettes Alcohol intake: never Substance use: never Last use: 2018 Gender identity (if verbalized by the patient): Female Spiritual care concerns: No Exam Narrative: General appearance: Well-developed, well-nourished Skin: Normal color Head: Normocephalic, nontraumatic Eyes: Clear conjunctiva ENT: Oropharynx normal, ears normal, nose normal Neck: Supple, nontender Chest and respiratory: Airway patent, no respiratory distress, no accessory muscle use Heart: Regular rate/rhythm Abdomen: Surgical wound dry and clean, mild diffuse abdominal tenderness around the scar. Vascular: Normal peripheral pulses, normal capillary refill. Musculoskeletal: Normal range of motion, nontender back Neurologic: Alert and oriented ?3, MARKETING DEVELOPMENT SPECIALIST is normal as tested, no gross motor deficit
== END 2021-08-24 18:58 | disposition home or self-care (01) ==
PROVIDERS: Emergency Provider Emergency Medicine; PCP Nurse Practitioner Family
DX: G89.18 Other acute postprocedural pain (principal); R10.9 Unspecified abdominal pain; F32.A Depression, unspecified; F90.9 Attention-deficit hyperactivity disorder, unspecified type; F41.1 Generalized anxiety disorder; E05.90 Thyrotoxicosis, unspecified without thyrotoxic crisis or storm; E66.9 Obesity, unspecified; Z68.20 Body mass index [BMI] 20.0-20.9, adult; Z87.891 Personal history of nicotine dependence
CPT/HCPCS: 36415; 74177; 80053; 81001; 81025; 83690; 85025; 96361; 96374; 96375; 99284; J1170; J2405; J7030; Q9967

== ENCOUNTER 2021-09-17 02:06 | Emergency (ER) | payer BC, SELFPAY ==
--- NOTE | ~2021-09-17 | CT_ITS ---
EXAMINATION: CT abdomen pelvis w con DATE: 09/17/2021 03:55 INDICATION: Left lower quadrant abdominal pain TECHNIQUE: Computed tomography (CT) of the abdomen and pelvis was performed with 100 mL Omnipaque-350 intravenous contrast. Automated exposure control and iterative reconstruction technique were employe d. The dose-length product was 253.47 mGy-cm. COMPARISON: 08/24/2021 FINDINGS: Lung bases are clear. Visualized inferior heart is normal. No pericardial or pleural effusion. Focal hepatic steatosis along the ligamentum teres. Cholecystectomy clips the gallbladder fossa. Spleen, pa ncreas, bilateral adrenal glands and kidneys are normal. Bowels including the appendix are normal. Bl adder, anteverted uterus and bilateral adnexa are unremarkable. Trace amount of likely physiologic fr ee fluid in the pelvis. No abscess or free intraperitoneal gas. IMPRESSION: 1. Trace amount of likely physiologic free fluid in the pelvis. No other acute intra-abdominal/pelvic process. Reviewed, dictated and finalized at location A.
[2021-09-17 02:11] VITALS: BP 113/90; PULSE 123; RESP 18; TEMP 36.5; O2SAT 100
--- NOTE | 2021-09-17 02:44 | ED.ABDPAIN ---
HPI - Abdominal Pain General Chief Complaint: Abdominal Pain Stated Complaint: abd pain Time Seen by Provider: 09/17/21 02:44 Source: patient Mode of arrival: ambulatory Limitations: no limitations History of Present Illness HPI narrative: Patient is a 30-year-old female with a history of ovarian cyst, recent tubal ligation, left ovarian cystectomy, presenting to the emergency department for evaluation of left lower quadrant abdominal pain. Patient states that the pain awakened her abruptly from sleep approximately 11:30 PM yesterday evening. Pain is described as sharp, cramping in nature, currently very mild. Patient had one episode of nonbloody, nonbilious emesis. Denies any chest pain or upper abdominal pain. Denies any vaginal bleeding. She reports mild left flank pain. She denies any hematuria or dysuria. No urinary frequency. Patient denies any cough or shortness of breath. Patient denies any recent sexual intercourse. Denies any vaginal discharge. Denies diarrhea or constipation. Patient states that following her procedure with Dr. Perdomo, she has felt much improved over the past few weeks. At her follow-up appointment, she had no acute complaint. Patient took a gram of Tylenol, ibuprofen this evening with some improvement in her symptoms. She states pain tonight is much more mild than compared to previous episodes of similar pain. Related Data Home Medications Medication Instructions Recorded Confirmed risperidone 0.25 mg BID PRN 03/06/21 09/06/21 venlafaxine 37.5 mg 112.5 mg PO HS cap 06/29/21 08/20/21 capsule,extended release 24 hr fluticasone propionate INTRANASAL 09/17/21 Allergies Allergy/AdvReac Type Severity Reaction Status Date / Time cephalexin Allergy Mild Rash Verified 09/17/21 02:45 metoclopramide [From Reglan] AdvReac Intermediate INCREASED Verified 09/17/21 02:45 HR prochlorperazine AdvReac Intermediate INCREASED Verified 09/17/21 02:45 [From Compazine] HR promethazine [From Phenergan] AdvReac Intermediate Anxiety Verified 09/17/21 02:45 Review of Systems Review of Systems: CONSTITUTIONAL: Denies fever, chills, or sweats. CARDIOVASCULAR: Denies chest pain, palpitations, or edema. RESPIRATORY: Denies cough or dyspnea. GASTROINTESTINAL: Reports left lower quadrant abdominal pain, nausea and vomiting GENITOURINARY: Denies dysuria or hematuria. Denies vaginal bleeding or discharge. SKIN: Denies rash or itching. MUSCULOSKELETAL: Denies back pain, joint pain, or myalgia. NEUROLOGIC: Denies headache, numbness, or weakness. [facility] Past Medical History Medical History ADH disorder ADHD Brain tumor Depression Generalized anxiety disorder Generalized hyperhidrosis Glioma tectorial gliomahe Headache, migraine Hydrocephalus Hyperthyroidism Mass of left ovary Obesity (BMI 30-39.9) PIH ( induced hypertension) Surgical History Surgical History Delivery by section (05/19/21) primary c/s H/O tubal ligation (08/20/21) tubal ligation / left ovarian cystectomy History of brain surgery 2011 History of cholecystectomy History of gynecological procedure (06/10/21) retained products of conception History of vaginal surgery complete vaginal reconstruction after vaginal Family History Family History Father Family history of elevated blood lipids Diabetes mellitus Depression Mother Melanoma Social History Social History Smoking packs per day: 0.75 Smoking cigarettes per day: 15.0 Years smoked: 10 Smoking pack-years: 7.50 Smoking status: Former smoker Tobacco type: cigarettes Alcohol intake: never Substance use: never Last use: 2017 Gender identity (if verbalized by the patient): Female Spiritual care concerns: N
[2021-09-17 03:08] LABS: Basophils Percent Auto 0.5 % (0.2-1.2); Eosinophils Absolute Auto 0.3 K/mm3 (0-0.3); Eosinophils Percent Auto 4.1 % (0-4.4); Hemoglobin 13.6 g/dL (12.0-15.0); Immature Granulocyte Absolute 0.02 K/mm3 (0.00-0.031); Immature Granulocyte Percent A 0.3 % (0-0.5); Lymphocytes Absolute Auto 2.61 K/mm3 (0.9-3.2); Lymphocytes Percent Auto 33.6 % (18.3-44.2); Mean Corpuscular HGB Conc 32.4 g/dl (32-36); Mean Corpuscular Hemoglobin 31.5 pg (26-34); Mean Corpuscular Volume 97.2 fl (80-100); Mean Platelet Volume 10.3 fl (7.4-10.4); Monocytes Absolute Auto 0.7 K/mm3 (0.1-0.6); Monocytes Percent Auto 8.8 % (2.6-8.5); Neutrophils Absolute Auto 4.1 K/mm3 (1.3-6.7); Neutrophils Percent Auto 52.7 % (45.5-73.1); Platelet Count Result 295 k/mm3 (150-375); Red Blood Count 4.32 M/mm3 (4.2-5.4); Red Cell Distribution Width 12.6 % (11.5-14.5); White Blood Count 7.8 K/mm3 (4.5-10.0)
[2021-09-17] MEDS: SODIUM CHLORIDE 0.9% IV 1,000 ML 999 ML IV CONT (03:11)
[2021-09-17] MEDS: ONDANSETRON INJ 4 MG/2 ML VIAL IV PUSH (03:11)
[2021-09-17] MEDS: DICYCLOMINE HCL INJ 20 MG/2 ML VIAL IM (03:12)
[2021-09-17 03:22] LABS: Alanine Aminotransferase 27 U/L (4-35); Alkaline Phosphatase 80 U/L (38-126); Anion Gap 11 mmol/L (8-16); Aspartate Amino Transferase 29 U/L (14-36); Bilirubin,Total 0.7 mg/dL (0.2-1.3); Blood Urea Nitrogen 14 mg/dL (7-17); Calcium 9.5 mg/dL (8.4-10.2); Carbon Dioxide 25 mmol/L (22-30); Chloride 104 mmol/L (98-107); Estimated CRCL calculation 102 ml/min; Estimated Glomerular Filt Rate > 60; Glucose 102 mg/dL (65-110); Lipase 187 U/L (23-300); Potassium 3.6 mmol/L (3.4-5.0); Sodium 140 mmol/L (137-145)
[2021-09-17 04:24] LABS: Add Urine Microscopic? YES; Appearance Urine Cloudy (Clear); Bilirubin Urine Negative (Negative); Blood Urine Negative (Negative); Color Urine Yellow (Yellow); Glucose Urine UA Negative (Negative); Ketones Urine Trace mg/dL (Negative); Leukocyte Esterase Ur 3+ LEU/UL (Negative); Mucus Urine Rare /lpf; Nitrate Urine Negative (Negative); Protein Urine Negative (Negative); Squamous Epithelial Cell Urine Many /hpf (Few); WBC Urine 21-30 /hpf
[2021-09-17] MEDS: KETOROLAC 15 MG/ML VIAL (*BKC) IV PUSH (04:25)
[2021-09-17 04:26] LABS: Specific Grav Ur > 1.060 (1.001-1.035)
[2021-09-17 06:00] VITALS: BP 123/80; PULSE 75; RESP 16; O2SAT 100
== END 2021-09-17 06:00 | disposition home or self-care (01) ==
PROVIDERS: Emergency Provider Emergency Medicine; PCP Nurse Practitioner Family
DX: R10.32 Left lower quadrant pain (principal); R82.998 Other abnormal findings in urine; F90.9 Attention-deficit hyperactivity disorder, unspecified type; F32.A Depression, unspecified; F41.1 Generalized anxiety disorder; E05.90 Thyrotoxicosis, unspecified without thyrotoxic crisis or storm; E66.9 Obesity, unspecified; G91.9 Hydrocephalus, unspecified; Z87.891 Personal history of nicotine dependence
CPT/HCPCS: 36415; 74177; 80053; 81001; 81025; 83690; 85025; 87086; 87088; 96361; 96372; 96374; 96375; 99284; J0500; J1885; J2405; J7030; Q9967

== ENCOUNTER 2022-08-25 07:27 | Emergency (ER) | payer BC, SELFPAY ==
--- NOTE | ~2022-08-25 | CT_ITS ---
EXAMINATION: CT brain wo con DATE: 08/25/2022 08:09 INDICATION: Headache. TECHNIQUE: Computed tomography (CT) of the head was performed without intravenous contrast. The mA wa s adjusted according to patient size. Iterative reconstruction technique was employed. The dose-lengt h product was 605.33 mGy-cm. COMPARISON: Head CT 07/29/2020, brain MRI 06/04/2014 FINDINGS: There is chronic encephalomalacia in right frontal lobe subjacent to an old ruth hole. Ther e is an ill-defined mass of the tectum measuring approximately 14 mm. There is no acute ischemic infa rct or intracranial hemorrhage. The ventricles are normal in size. The orbits are normal. There is mi ld mucosal thickening in the ethmoid sinuses. The mastoid air cells are normal. IMPRESSION: 1. 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 2. 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 Reviewed, dictated and finalized at location A. [employer] IMPRESSION: 1. 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 2. 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
[2022-08-25 07:40] VITALS: BP 94/51; PULSE 96; RESP 15; TEMP 36.8; O2SAT 98
--- NOTE | 2022-08-25 07:58 | ED.GENADULT ---
HPI - General Adult General Chief complaint: Headache Stated complaint: strep +, headache Time Seen by Provider: 08/25/22 07:53 Source: patient Mode of arrival: ambulatory History of Present Illness HPI narrative: 31 years old white female drove herself to the emergency room because of bilateral temporal headache, aching started 3 days ago. Tested positive for strep 3 days ago, currently on amoxicillin, patient reports fever and chills yesterday, not today. 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 She is telling me that she have history of inoperable brain tumor, hydrocephalus, 2011 and had emergency surgery at that time and is telling me if she did not show up at that time she would be . She denies any focal neurodeficits at this time. Patient reports she having similar headache like this before and usually get headache cocktail and gets better. She denies any vomiting or fever at this time. History of headache, migraine, brain tumor, depression, ADHD Related Data Home Medications Medication Instructions Recorded Confirmed risperidone 0.25 mg tablet 0.25 mg BID PRN anxiety 03/06/21 09/06/21 venlafaxine 37.5 mg 112.5 mg PO HS 06/29/21 08/20/21 capsule,extended release 24 hr fluticasone propionate 50 intranasal 09/17/21 mcg/actuation nasal spray,suspension Allergies Allergy/AdvReac Type Severity Reaction Status Date / Time cephalexin Allergy Mild Rash Verified 08/25/22 07:42 metoclopramide [From Reglan] AdvReac Intermediate INCREASED Verified 08/25/22 07:42 HR prochlorperazine AdvReac Intermediate INCREASED Verified 08/25/22 07:42 [From Compazine] HR promethazine [From Phenergan] AdvReac Intermediate Anxiety Verified 08/25/22 07:42 Review of Systems Review of Systems: All systems reviewed & are unremarkable except as noted in HPI and below PMFSH Past Medical History Medical History ADH disorder ADHD Brain tumor Depression Generalized anxiety disorder Generalized hyperhidrosis Glioma tectorial gliomahe Headache, migraine Hydrocephalus Hyperthyroidism Mass of left ovary Obesity (BMI 30-39.9) PIH ( induced hypertension) Surgical History Surgical History Delivery by section (05/19/21) primary c/s H/O tubal ligation (08/20/21) tubal ligation / left ovarian cystectomy History of brain surgery 2011 History of cholecystectomy History of gynecological procedure (06/10/21) retained products of conception History of vaginal surgery complete vaginal reconstruction after vaginal Family History Family History Father Family history of elevated blood lipids Diabetes mellitus Depression Mother Melanoma Social History Social History Smoking packs per day: 0.75 Smoking cigarettes per day: 15.0 Years smoked: 10 Smoking pack-years: 7.50 Smoking status: Former smoker Tobacco type: cigarettes Alcohol intake: never Substance use: never Last use: 2017 Living arrangements: with family Gender identity (if verbalized by the patient): Female Spiritual care concerns: No Exam Narrative: General appearance: Well-developed, well-nourished, looks in pain Skin: Normal color Head: Normocephalic, nontraumatic Eyes: Clear conjunctiva ENT: Oropharynx normal, ears normal, nose normal Neck: Supple, nontender Chest and respiratory: Airway patent, no respiratory distress, no accessory muscle use Heart: Regular rate/rhythm Abdomen: Soft, nontender, no organomegaly, quiet bowel sounds Vascular: Normal peripheral pulses, normal capillary refill. Musculoskeletal: Normal range of motion, nontender back Neurologic: Alert and oriented ?3, [employer] is normal as tested, no gross motor deficit
--- NOTE | 2022-08-25 08:00 | PC.NURSE ---
pt states she normally gets toradol, zofran, fluid, benadryl and ativan for her headaches.
[2022-08-25] MEDS: LORazepam INJ (*CRX) 2 MG/ML VIAL 1 MG IV PUSH (08:14)
[2022-08-25] MEDS: KETOROLAC 30 MG/ML VIAL (*BKC) IV PUSH (08:14)
[2022-08-25] MEDS: ONDANSETRON INJ 4 MG/2 ML VIAL IV PUSH (08:14)
[2022-08-25] MEDS: SODIUM CHLORIDE 0.9% IV 1,000 ML 999 ML IV CONT (08:15)
--- NOTE | 2022-08-25 09:40 | PC.NURSE ---
pt amb to bathroom with urine cup. pt states is unable to void. resting in room laying on right side in position of comfort.
[2022-08-25] MEDS: HYDROmorphone HCL INJ (*CRX) 1 MG/ML SYR 0.5 MG IV PUSH (10:36)
[2022-08-25 11:09] LABS: Amphetamine Screen Urine Negative (Negative); Barbiturate Screen Urine Negative (Negative); Benzodiazepines Screen Urine Negative (Negative); Cannabinoid Screen Urine Negative (Negative); Cocaine Screen Urine Negative (Negative); Methadone Screen Urine Negative (Negative); Opiate Screen Urine Positive (Negative); Phencyclidine Screen Urine Negative (Negative)
[2022-08-25 11:12] LABS: Appearance Urine Clear (Clear); Bacteria Urine None Seen /hpf; Bilirubin Urine 2+ (Negative); Blood Urine Negative (Negative); Color Urine Dark Yellow (Yellow); Glucose Urine UA Negative (Negative); Hyaline Casts Urine Present /lpf; Ketones Urine 1+ mg/dL (Negative); Leukocyte Esterase Ur Negative LEU/UL (Negative); Nitrate Urine Negative (Negative); Non Pathogenic Casts 0-2; Protein Urine 2+ mg/dL (Negative); RBC Urine 0-2 /hpf (0-2); Specific Grav Ur 1.029 (1.001-1.035); Squamous Epithelial Cell Urine Occasional /hpf (Few); WBC Urine 0-5 /hpf
[2022-08-25 11:20] LABS: Add Urine Microscopic? YES
[2022-08-25 11:25] LABS: SARS-CoV-2 RNA PCR Negative
[2022-08-25 11:33] VITALS: BP 101/59; PULSE 78; RESP 16
== END 2022-08-25 11:51 | disposition home or self-care (01) ==
PROVIDERS: Emergency Provider Emergency Medicine; PCP Nurse Practitioner Family
DX: R51.9 Headache, unspecified (principal); Z20.822 Contact with and (suspected) exposure to COVID-19; J02.0 Streptococcal pharyngitis; F90.9 Attention-deficit hyperactivity disorder, unspecified type; F32.A Depression, unspecified; F41.1 Generalized anxiety disorder; E05.90 Thyrotoxicosis, unspecified without thyrotoxic crisis or storm; R61 Generalized hyperhidrosis; Z87.891 Personal history of nicotine dependence; G93.89 Other specified disorders of brain
CPT/HCPCS: 70450; 80307; 81001; 96361; 96374; 96375; 99284; J1170; J1885; J2060; J2405; J7030; U0003; U0005